=== PATIENT | female | born 1995 | race African-American/Black ===

== ENCOUNTER 2018-07-02 20:47 | Emergency (ER) | payer SELFPAY ==
--- OUTSIDE RECORDS SUMMARY | 2018-07-02 20:49 | XMS REPORT ---
:1995 [facility] Address [address] [place] [address] Dr. Elias. [address] [place] [id number] Care Team Providers Name Role Phone Unavailable Unavailable Unavailable Problems This patient has no known problems. Allergies, Adverse Reactions, Alerts This patient has no known allergies or adverse reactions. Medications This patient has no known medications.
[2018-07-02] MEDS ORDERED: HYDROCODONE/APAP 7.5/325 MG TAB ONE (21:23)
--- NOTE | 2018-07-02 22:42 | EDPHYS ---
Physician Documentation [facility] Name: Dylan Lopes Age: 22 yrs Sex: Female : 1995 Arrival Date: 07/02/2018 Time: 20:51 Bed 15 Private MD: ED Physician Remberto Hagen HPI: 07/02 21:50 This 22 yrs old Black Female presents to ER via EMS with complaints of Knee Injury. jr8 21:50 Onset: The symptoms/episode began/occurred acutely, today. The patient has not jr8 experienced similar symptoms in the past. The patient has not recently seen a physician. Patient stated that she was hit with softball directly to right knee. Pain since incident with limited ROM. 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 ak1 Historical: - Allergies: 20:55 No Known Allergies; ak1 - Home Meds: 20:55 Depo-Provera IM [Active]; ak1 - PMHx: 20:55 None; ak1 - PSHx: 20:55 ; ak1 - Immunization history:: Adult Immunizations up to date. - Social history:: Smoking status: unknown Patient/guardian denies using alcohol. - Ebola Screening: : No symptoms or risks identified at this time. ROS: 21:50 Eyes: Negative for injury, pain, redness, and discharge, ENT: Negative for injury, jr8 pain, and discharge, Neck: Negative for injury, pain, and swelling, Cardiovascular: Negative for chest pain, palpitations, and edema, Respiratory: Negative for shortness of breath, cough, wheezing, and pleuritic chest pain, Abdomen/GI: Negative for abdominal pain, nausea, vomiting, diarrhea, and constipation, Back: Negative for injury and pain, Skin: Negative for injury, rash, and discoloration, Neuro: Negative for headache, weakness, numbness, tingling, and seizure. 21:50 MS/extremity: Positive for decreased range of motion, pain, swelling, tenderness, of the right knee. Exam: 21:50 Eyes: Pupils equal round and reactive to light, extra-ocular motions intact. Lids and jr8 lashes normal. Conjunctiva and sclera are non-icteric and not injected. Cornea within normal limits. Periorbital areas with no swelling, redness, or edema. ENT: Nares patent. No nasal discharge, no septal abnormalities noted. Tympanic membranes are normal and external auditory canals are clear. Oropharynx with no redness, swelling, or masses, exudates, or evidence of obstruction, uvula midline. Mucous membranes moist. Neck: Trachea midline, no thyromegaly or masses palpated, and no cervical lymphadenopathy. Supple, full range of motion without nuchal rigidity, or vertebral point tenderness. No Meningismus. Cardiovascular: Regular rate and rhythm with a normal S1 and S2. No gallops, murmurs, or rubs. Normal PMI, no JVD. No pulse deficits. Respiratory: Lungs have equal breath sounds bilaterally, clear to auscultation and percussion. No rales, rhonchi or wheezes noted. No increased work of breathing, no retractions or nasal flaring. Abdomen/GI: Soft, non-tender, with normal bowel sounds. No distension or tympany. No guarding or rebound. No evidence of tenderness throughout. Back: No spinal tenderness. No costovertebral tenderness. Full range of motion. Skin: Warm, dry with normal turgor. Normal color with no rashes, no lesions, and no evidence of cellulitis. Neuro: Awake and alert, GCS 15, oriented to person, place, time, and situation. Cranial nerves II-XII grossly intact. Motor strength 5/5 in all extremities. Sensory grossly intact. Cerebellar exam normal. Normal gait. 21:50 Musculoskeletal/extremity: Extremities: grossly normal except: noted in the right knee: pain, swelling, tenderness, Patient has annular region of swelling to medial aspect of patella. No obvious deformity noted. Mild swelling present with tenderness to anterior knee , ROM: limited active range of motion, limited passive range of motion, limited active range of motion due to pain, limited passive range of motion due to pain, Circulation is intact in all extremities. Sensation intact. Vital Signs: 20:55 BP 91 / 55; Pulse 61; Resp 16; Temp 97.9(O); Pulse Ox 97% on R/A; Weight 59.87 kg (R); ak1 Height 5 ft. 8 in. (172.72 cm) (R); Pain 8/10; 21:34 BP 113 / 86; Pulse 48; Resp 16; Pulse Ox 100% on R/A; ak1 22:47 BP 121 / 73; Pulse 50; Resp 16; Temp 98.; Pulse Ox 100% on R/A; ak1 20:55 Body Mass Index 20.07 (59.87 kg, 172.72 cm) ak1 MDM: 21:03 Patient medically screened. jr8 22:41 Data reviewed: vital signs, nurses notes, radiologic studies, plain films, and as a jr8 result, I will discharge patient. Data interpreted: Pulse oximetry: on room air is 100 %. Interpretation: normal. Counseling: I had a detailed discussion with the patient and/or guardian regarding: the historical points, exam findings, and any diagnostic results supporting the discharge/admit diagnosis, radiology results, the need for outpatient follow up, a orthopedic surgeon, to return to the emergency department if symptoms worsen or persist or if there are any questions or concerns that arise at home. 07/02 20:53 Order name: XRAY Knee RIGHT 3 view ak1 Administered Medications: 21:12 Drug: [place] (7.5 mg-325 mg) 1 tabs Route: PO; ak1 21:34 Follow up: Response: No adverse reaction; Pain is decreased ak1 22:48 Follow up: Response: No adverse reaction; Pain is decreased ak1 Disposition: 07/03 07:12 Co-signature as Attending Physician, Remberto Hagen MD I agree with the assessment and tw4 plan of care. Disposition: 07/02/18 22:41 Discharged to Home. Impression: Contusion of right knee. - Condition is Stable. - Discharge Instructions: Knee Pain. - Prescriptions for Ibuprofen 800 mg Oral Tablet - take 1 tablet by ORAL route every 12 hours As needed take with food; 20 tablet. - Medication Reconciliation Form, Thank You Letter, Antibiotic Education, Prescription Opioid Use form. - Follow up: Gary Smith MD; When: 5 - 6 days; Reason: Recheck today's complaints, Continuance of care, Re-evaluation by your physician. - Problem is new. - Symptoms have improved. Signatures: Dispatcher [employer] EDMS Alex Hemphill PA PA jr8 Meenakshi Gutierrez, RN RN ak1 Remberto Hagen MD MD tw4 Corrections: (The following items were deleted from the chart) 07/02 22:56 22:41 07/02/2018 22:41 Discharged to Home. Impression: Contusion of right knee. ak1 Condition is Stable. Forms are Medication Reconciliation Form, Thank You Letter, Antibiotic Education, Prescription Opioid Use. Follow up: Gary Smith; When: 5 - 6 days; Reason: Recheck today's complaints, Continuance of care, Re-evaluation by your physician. Problem is new. Symptoms have improved. jr8
--- NOTE | 2018-07-02 22:42 | ER ---
Nurse's Notes [facility] Name: Dylan Lopes Age: 22 yrs Sex: Female : 1995 Arrival Date: 07/02/2018 Time: 20:51 Bed 15 Private MD: Diagnosis: Contusion of right knee Presentation: 07/02 20:53 Presenting complaint: Patient states: sitting on sideline when hit with softball to ak1 right knee. pain to inner right knee. ice applied during triage. Transition of care: patient was not received from another setting of care. Onset of symptoms was July 02, 2018. Risk Assessment: Do you want to hurt yourself or someone else? Patient reports no desire to harm self or others. Initial Sepsis Screen: Does the patient meet any 2 criteria? No. Patient's initial sepsis screen is negative. Does the patient have a suspected source of infection? No. Patient's initial sepsis screen is negative. Care prior to arrival: None. 20:53 Method Of Arrival: EMS: [facility] ak 20:53 Acuity: CORONA 4 ak1 Triage Assessment: 20:55 General: Appears uncomfortable, Behavior is calm, cooperative. Pain: Complains of pain ak1 in medial aspect of right knee. EENT: No signs and/or symptoms were reported regarding the EENT system. Neuro: No deficits noted. Cardiovascular: No deficits noted. Respiratory: No deficits noted. GI: No signs and/or symptoms were reported involving the gastrointestinal system. : No signs and/or symptoms were reported regarding the genitourinary system. Derm: No signs and/or symptoms reported regarding the dermatologic system. Musculoskeletal: Capillary refill < 3 seconds, Range of motion: limited in right knee Swelling present in medial aspect of right knee pulses present in right foot. 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 ak1 Historical: - Allergies: 20:55 No Known Allergies; ak1 - Home Meds: 20:55 Depo-Provera IM [Active]; ak1 - PMHx: 20:55 None; ak1 - PSHx: 20:55 ; ak1 - Immunization history:: Adult Immunizations up to date. - Social history:: Smoking status: unknown Patient/guardian denies using alcohol. - Ebola Screening: : No symptoms or risks identified at this time. Screenin:58 Abuse screen: Denies threats or abuse. Denies injuries from another. Nutritional ak1 screening: No deficits noted. Tuberculosis screening: No symptoms or risk factors identified. Fall Risk None identified. Assessment: 21:35 Reassessment: Patient appears in no apparent distress at this time. No changes from ak1 previously documented assessment. waiting on Xray results. 22:47 Reassessment: Patient appears in no apparent distress at this time. No changes from ak1 previously documented assessment. right knee sravani applied per Alex QUEEN verbal orders. Vital Signs: 20:55 BP 91 / 55; Pulse 61; Resp 16; Temp 97.9(O); Pulse Ox 97% on R/A; Weight 59.87 kg (R); ak1 Height 5 ft. 8 in. (172.72 cm) (R); Pain 8/10; 21:34 BP 113 / 86; Pulse 48; Resp 16; Pulse Ox 100% on R/A; ak1 22:47 BP 121 / 73; Pulse 50; Resp 16; Temp 98.; Pulse Ox 100% on R/A; ak1 20:55 Body Mass Index 20.07 (59.87 kg, 172.72 cm) ak1 ED Course: 20:51 Patient arrived in ED. fc 20:52 Meenakshi Gutierrez, RN is Primary Nurse. ak1 20:54 Triage completed. ak1 20:55 Arm band placed on Patient placed in an exam room, on a stretcher, on pulse oximetry, ak1 Patient notified of wait time. 20:58 Patient has correct armband on for positive identification. Bed in low position. Call ak1 light in reach. Side rails up X2. Adult w/ patient. Pulse ox on. NIBP on. 21:03 Alex Hemphill PA is PHCP. jr8 21:03 Remberto Hagen MD is Attending Physician. jr8 21:55 XRAY Knee RIGHT 3 view In Process Unspecified. EDMS 22:41 Gary Smith MD is Referral Physician. jr8 22:48 No provider procedures requiring assistance completed. Patient did not have IV access ak1 during this emergency room visit. Administered Medications: 21:12 Drug: [place] (7.5 mg-325 mg) 1 tabs Route: PO; ak1 21:34 Follow up: Response: No adverse reaction; Pain is decreased ak1 22:48 Follow up: Response: No adverse reaction; Pain is decreased ak1 Outcome: 22:41 Discharge ordered by . sabas 22:55 Discharged to home via wheelchair, with family, pt ambulated to wheelchair. ak1 22:55 Condition: good 22:55 Discharge instructions given to patient, family, Instructed on discharge instructions, follow up and referral plans. no drinking with medication, no driving heavy equipment, medication usage, Demonstrated understanding of instructions, follow-up care, medications, Prescriptions given X 1. 22:56 Patient left the ED. ak1 Signatures: Dispatcher [employer] EDMS Daniella Dai RN RN fc Roszak, Josh, PA PA jr8 Krenek, Amber, RN RN ak1
--- NOTE | 2018-07-03 09:12 | RAD REPORT ---
EXAM DESCRIPTION: RAD - Knee Right 3 View - 07/02/2018 9:54 pm CLINICAL HISTORY: Right knee pain status post injury FINDINGS: No fracture or dislocation is seen.
== END 2018-07-02 22:56 | disposition home or self-care (01) ==
LOC: ER 20:47
DX: S80.01XA Contusion of right knee, initial encounter (principal); W21.07XA Struck by softball, initial encounter; Y93.9 Activity, unspecified; Y92.9 Unspecified place or not applicable
CPT/HCPCS: 99284

== ENCOUNTER 2018-08-13 23:28 | Emergency (ER) | payer SELFPAY ==
--- OUTSIDE RECORDS SUMMARY | 2018-08-13 23:31 | XMS REPORT ---
:1995 Author Organization [facility] Address [address] [place] [address] Dr. Elias. [address] [place] [id number] Care Team Providers Name Role Phone Unavailable Unavailable Unavailable Problems This patient has no known problems. Allergies, Adverse Reactions, Alerts This patient has no known allergies or adverse reactions. Medications This patient has no known medications.
[2018-08-14] MEDS ORDERED: ONDANSETRON 4 MG/2 ML VIAL ONE (00:36)
--- NOTE | 2018-08-14 01:25 | EDPHYS ---
Physician Documentation [facility] Name: Dylan Lopes Age: 23 yrs Sex: Female : 1995 Arrival Date: 08/13/2018 Time: 23:34 Bed 27 Private MD: ED Physician Bart Ravi HPI: 08/14 00:00 This 23 yrs old Black Female presents to ER via Ambulatory with complaints of Vomiting. cp 00:00 The patient presents to the emergency department with nausea, that is moderate, cp vomiting, that is continuous, diarrhea, that is continuous. Onset: The symptoms/episode began/occurred this morning. Possible causes: sick contacts, infant daughter with similar symptoms. Associated signs and symptoms: Pertinent positives: fever, sore throat, slight cough, Pertinent negatives: constipation, dysuria, GI bleeding. Severity of symptoms: in the emergency department the symptoms are unchanged despite home interventions. 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 - Social history:: Smoking status: Patient/guardian denies using tobacco. - Ebola Screening: : No symptoms or risks identified at this time. ROS: 08/14 00:05 Constitutional: Negative for body aches, chills, fever. cp 00:05 Eyes: Negative for injury, pain, redness, and discharge. cp 00:05 ENT: Positive for sore throat, Negative for drainage from ear(s), ear pain, sinus congestion, sinus pain, difficulty swallowing, difficulty handling secretions. 00:05 Cardiovascular: Negative for chest pain. 00:05 Respiratory: Positive for slight cough, Negative for shortness of breath, wheezing. 00:05 Abdomen/GI: Positive for nausea, vomiting, and diarrhea, Negative for constipation, hematemesis. 00:05 : Negative for urinary symptoms. 00:05 Skin: Negative for rash. 00:05 Neuro: Negative for altered mental status, headache. 00:05 All other systems are negative. Exam: 00:10 Constitutional: The patient appears in no acute distress, alert, awake, non-toxic, well cp developed, well nourished. 00:10 Head/Face: Normocephalic, atraumatic. cp 00:10 Eyes: Periorbital structures: appear normal, Conjunctiva: normal, no exudate, no injection, Sclera: no appreciated abnormality, Lids and lashes: appear normal, bilaterally. 00:10 ENT: External ear(s): are unremarkable, Ear canal(s): are normal, clear, TM's: dullness, bilaterally, Nose: is normal, Mouth: Lips: moist, Oral mucosa: moist, Posterior pharynx: Airway: no evidence of obstruction, patent, Tonsils: with erythema, no enlargement, no exudate, Uvula: midline, erythema, that is moderate, exudate, is not appreciated. 00:10 Neck: Lymph nodes: lymphadenopathy is appreciated, anterior cervical nodes. 00:10 Chest/axilla: Inspection: normal, Palpation: is normal, no crepitus, no tenderness. 00:10 Cardiovascular: Rate: normal, Rhythm: regular. 00:10 Respiratory: the patient does not display signs of respiratory distress, Respirations: normal, no use of accessory muscles, no retractions, no splinting, no tachypnea, labored breathing, is not present, Breath sounds: are clear throughout, no decreased breath sounds, no stridor, no wheezing. 00:10 Abdomen/GI: Inspection: abdomen appears normal, Bowel sounds: active, all quadrants, Palpation: abdomen is soft and non-tender, in all quadrants. Vital Signs: 08/13 23:52 BP 111 / 78; Pulse 86; Resp 18; Temp 98.8(O); Pulse Ox 97% on R/A; Weight 59.87 kg; lp1 Height 5 ft. 8 in. (172.72 cm); Pain 11/30; 08/14 01:36 BP 110 / 81; Pulse 79; Resp 18; Temp 98.5; Pulse Ox 99% ; rv 08/13 23:52 Body Mass Index 20.07 (59.87 kg, 172.72 cm) lp1 MDM: 08/13 23:52 Patient medically screened. cp 08/14 01:23 Data reviewed: vital signs, nurses notes, lab test result(s), and as a result, I will cp discharge patient. 01:23 Counseling: I had a detailed discussion with the patient and/or guardian regarding: the cp historical points, exam findings, and any diagnostic results supporting the discharge/admit diagnosis, lab results, to return to the emergency department if symptoms worsen or persist or if there are any questions or concerns that arise at home. ED course: VSS. daughter positive for strep. Will treat patient also and discharge to home for continued monitoring. Nausea improved and no vomiting observed in ED. 08/14 00:03 Order name: Influenza Screen (a \T\ B) 08/14 00:03 Order name: Strep; Complete Time: 01:12 cp 08/14 01:12 Interpretation: Reviewed. 08/14 01:00 Order name: Throat Culture EDDC 08/14 01:11 Order name: Urine Dipstick--Ancillary (enter results) 08/14 01:11 Order name: Urine --Ancillary (enter results) 08/14 00:03 Order name: Urine Dipstick-Ancillary (obtain specimen); Complete Time: 00:39 cp 08/14 00:03 Order name: Urine Test (obtain specimen); Complete Time: 00:39 cp 08/14 00:53 Order name: PO challenge; Complete Time: 01:09 cp 08/14 01:13 Order name: PO challenge; Complete Time: 01:35 cp Administered Medications: 00:16 Drug: Zofran 4 mg Route: PO; rv 00:37 Follow up: Response: No adverse reaction rv Disposition: 08/14/18 01:24 Discharged to Home. Impression: Acute pharyngitis, Vomiting, Diarrhea, unspecified. - Condition is Stable. - Discharge Instructions: Food Choices to Help Relieve Diarrhea, Adult, Diarrhea, Adult, Pharyngitis. - Prescriptions for Amoxicillin 875 mg Oral Tablet - take 1 tablet by ORAL route every 12 hours for 10 days; 20 tablet. Ibuprofen 800 mg Oral Tablet - take 1 tablet by ORAL route every 8 hours As needed take with food; 30 tablet. Zofran 4 mg Oral Tablet - take 1 tablet by ORAL route every 12 hours As needed; 20 tablet. - Medication Reconciliation Form, Thank You Letter, Antibiotic Education, Prescription Opioid Use form. - Follow up: Private Physician; When: 2 - 3 days; Reason: Worsening of condition. - Problem is new. - Symptoms have improved. Signatures: Dispatcher [employer] EDMS Emily Sultana RN RN lp1 Olegario Todd PA PA cp Rajesh Adame, RN RN rv Corrections: (The following items were deleted from the chart) 01:36 01:24 08/14/2018 01:24 Discharged to Home. Impression: Acute pharyngitis; Vomiting; rv Diarrhea, unspecified. Condition is Stable. Forms are Medication Reconciliation Form, Thank You Letter, Antibiotic Education, Prescription Opioid Use. Follow up: Private Physician; When: 2 - 3 days; Reason: Worsening of condition. Problem is new. Symptoms have improved. cp
--- NOTE | 2018-08-14 01:25 | ER ---
Nurse's Notes [facility] Name: Dylan Lopes Age: 23 yrs Sex: Female : 1995 Arrival Date: 08/13/2018 Time: 23:34 Bed 27 Private MD: Diagnosis: Acute pharyngitis;Vomiting;Diarrhea, unspecified Presentation: 08/13 23:51 Presenting complaint: Patient states: Diarrhea and vomiting that began at 0400; states lp1 feeling general weakness; Unknown if fever at home. Transition of care: patient was not received from another setting of care. Onset of symptoms was August 13, 2018. Risk Assessment: Do you want to hurt yourself or someone else? Patient reports no desire to harm self or others. Initial Sepsis Screen: Does the patient meet any 2 criteria? No. Patient's initial sepsis screen is negative. Does the patient have a suspected source of infection? No. Patient's initial sepsis screen is negative. Care prior to arrival: None. 23:51 Method Of Arrival: Ambulatory lp1 23:51 Acuity: CORONA 3 lp1 Triage Assessment: 08/14 00:15 General: Appears in no apparent distress. comfortable, Behavior is calm, cooperative. rv GI: Reports nausea, vomiting. 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 - Social history:: Smoking status: Patient/guardian denies using tobacco. - Ebola Screening: : No symptoms or risks identified at this time. Screenin:53 Abuse screen: Denies threats or abuse. Denies injuries from another. Nutritional lp1 screening: No deficits noted. Tuberculosis screening: No symptoms or risk factors identified. Fall Risk None identified. Assessment: 08/14 00:14 General: Appears in no apparent distress. comfortable, Behavior is calm, cooperative. rv Pain: Denies pain. Neuro: Level of Consciousness is awake, alert, obeys commands, Oriented to person, place, time, situation. Cardiovascular: Patient's skin is warm and dry. Respiratory: Airway is patent. GI: Abdomen is flat. : No signs and/or symptoms were reported regarding the genitourinary system. EENT: No signs and/or symptoms were reported regarding the EENT system. Derm: Skin is intact. Musculoskeletal: No signs and/or symptoms reported regarding the musculoskeletal system. Vital Signs: 08/13 23:52 BP 111 / 78; Pulse 86; Resp 18; Temp 98.8(O); Pulse Ox 97% on R/A; Weight 59.87 kg; lp1 Height 5 ft. 8 in. (172.72 cm); Pain 9/10; 08/14 01:36 BP 110 / 81; Pulse 79; Resp 18; Temp 98.5; Pulse Ox 99% ; rv 08/13 23:52 Body Mass Index 20.07 (59.87 kg, 172.72 cm) lp1 ED Course: 08/13 23:34 Patient arrived in ED. am2 23:49 Olegario Todd PA is PHCP. cp 23:49 Bart Ravi MD is Attending Physician. cp 23:52 Triage completed. lp1 23:53 Arm band placed on. lp1 08/14 00:14 Rajesh Adame RN is Primary Nurse. rv 00:14 Influenza Screen (a \T\ B) Sent. rv 00:14 Strep Sent. rv 00:15 Patient has correct armband on for positive identification. Bed in low position. Call rv light in reach. Side rails up X 1. Pulse ox on. NIBP on. 01:35 No provider procedures requiring assistance completed. Patient did not have IV access rv during this emergency room visit. Administered Medications: 00:16 Drug: Zofran 4 mg Route: PO; rv 00:37 Follow up: Response: No adverse reaction rv Outcome: 01:24 Discharge ordered by . cp 01:35 Discharged to home ambulatory. rv 01:35 Condition: good 01:35 Discharge instructions given to patient, Instructed on discharge instructions, follow up and referral plans. medication usage, Demonstrated understanding of instructions, follow-up care, medications, Prescriptions given X 3. 01:36 Patient left the ED. rv Signatures: Emily Sultana RN RN lp1 Olegario Todd PA PA Kandy Morales am2 Rajesh Adame RN RN rv
[2018-08-14 01:31] LABS: Urine Blood TRACE (NEG); Urine Glucose NEGATIVE (NEG); Urine Protein 1+ (NEG); Urine Specific Gravity 1.025 (1.005-1.030); Urine pH 6.5 (5.0-7.0)
== END 2018-08-14 01:36 | disposition home or self-care (01) ==
LOC: ER 23:28
DX: J02.9 Acute pharyngitis, unspecified (principal); R11.2 Nausea with vomiting, unspecified; R19.7 Diarrhea, unspecified
CPT/HCPCS: 81003; 81025; 87070; 87081; 87804; 99284; J2405

== ENCOUNTER 2019-03-08 17:15 | Emergency (ER) | payer SELFPAY ==
--- OUTSIDE RECORDS SUMMARY | 2019-03-08 17:17 | XMS REPORT ---
:1995 [facility] Address [address] [place] [address] Dr. Elias. [address] [place] [id number] Care Team Providers Name Role Phone Unavailable Unavailable Unavailable Problems This patient has no known problems. Allergies, Adverse Reactions, Alerts This patient has no known allergies or adverse reactions. Medications This patient has no known medications.
[2019-03-08] MEDS ORDERED: dexAMETHasone 10 MG/ML VIAL ONE (17:50)
[2019-03-08] MEDS ORDERED: ACETAMINOPHEN 500 MG TAB ONE (17:50)
--- NOTE | 2019-03-08 18:04 | ER ---
Nurse's Notes [facility] Name: Dylan Lopes Age: 23 yrs Sex: Female : 1995 Arrival Date: 03/08/2019 Time: 17:18 Bed 15 Private MD: Angelia Herrera Diagnosis: Streptococcal tonsillitis Presentation: 03/08 17:28 Presenting complaint: Patient states: dental pain x 2 days and sore throat x 1 day. ss Transition of care: patient was not received from another setting of care. Onset of symptoms was March 06, 2019. Risk Assessment: Do you want to hurt yourself or someone else? Patient reports no desire to harm self or others. Initial Sepsis Screen: Does the patient meet any 2 criteria? No. Patient's initial sepsis screen is negative. Does the patient have a suspected source of infection? No. Patient's initial sepsis screen is negative. Care prior to arrival: None. 17:28 Method Of Arrival: Ambulatory ss 17:28 Acuity: CORONA 3 ss Triage Assessment: 18:00 General: Appears in no apparent distress. Behavior is calm. 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 - Social history:: Smoking status: Patient/guardian denies using tobacco. - Ebola Screening: : Patient denies exposure to infectious person Patient denies travel to an Ebola-affected area in the 21 days before illness onset. Screenin:40 Abuse screen: Denies threats or abuse. Denies injuries from another. Nutritional iw screening: No deficits noted. Tuberculosis screening: No symptoms or risk factors identified. Fall Risk None identified. Assessment: 17:40 General: Appears in no apparent distress. Behavior is calm, cooperative. Pain: iw Complains of pain in throat. Neuro: Level of Consciousness is awake, alert, obeys commands, Oriented to person, place, time, situation, Moves all extremities. Full function. Cardiovascular: Patient's skin is warm and dry. Respiratory: Airway is patent Respiratory effort is even, unlabored, Breath sounds are clear bilaterally. EENT: Throat is reddened has enlarged tonsils bilaterally with gag reflex present. Derm: Skin is intact, is healthy with good turgor. Musculoskeletal: Range of motion: intact in all extremities. Vital Signs: 17:28 BP 121 / 81; Pulse 81; Resp 16; Temp 99.1(O); Pulse Ox 100% on R/A; Weight 68.49 kg; ss Height 5 ft. 7 in. (170.18 cm); Pain 8/10; 17:28 Body Mass Index 23.65 (68.49 kg, 170.18 cm) ED Course: 17:18 Patient arrived in ED. am2 17:18 Angelia Herrera MD is Private Physician. am2 17:23 [facility]. jr8 17:23 Ilene Hunt MD is Attending Physician. jr8 17:28 Arm band placed on right wrist. ss 17:31 Triage completed. 17:33 Ana Beckwith RN is Primary Nurse. iw 17:40 Patient has correct armband on for positive identification. iw 17:40 No provider procedures requiring assistance completed. Patient did not have IV access iw during this emergency room visit. Administered Medications: 17:54 Drug: Decadron 10 mg Route: IM; Site: right deltoid; iw 18:12 Follow up: Response: No adverse reaction iw 17:55 Drug: Tylenol 1000 mg Route: PO; iw 18:12 Follow up: Response: No adverse reaction iw Outcome: 18:03 Discharge ordered by . [facility] 18:11 Discharged to home iw 18:11 Condition: good 18:11 Discharge instructions given to patient, Instructed on discharge instructions, medication usage, Demonstrated understanding of instructions, follow-up care, medications, Prescriptions given X 2. 18:12 Patient left the ED. iw Signatures: Ana Beckwith RN RN Domonique Hernandez RN RN Alex Hemphill PA PA [facility] Kandy Herron 2
--- NOTE | 2019-03-08 18:05 | EDPHYS ---
Physician Documentation [facility] Name: Dylan Lopes Age: 23 yrs Sex: Female : 1995 Arrival Date: 03/08/2019 Time: 17:18 Bed 15 Private MD: Angelia Herrera ED Physician Ilene Hunt HPI: 03/08 18:01 This 23 yrs old Black Female presents to ER via Ambulatory with complaints of Sore jr8 Throat, Difficulty Swallowing, Fever, Vomiting. 18:01 The patient presents with sore throat. The patient describes throat pain as raw. Onset: jr8 The symptoms/episode began/occurred acutely, yesterday. Severity of symptoms: At their worst the symptoms were moderate, in the emergency department the symptoms are unchanged. Modifying factors: The symptoms are alleviated by nothing, the symptoms are aggravated by swallowing. Associated signs and symptoms: Pertinent positives: fever, headache, nausea, Sore throat vomiting. The patient has not experienced similar symptoms in the past. The patient has not recently seen a physician. 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 - Social history:: Smoking status: Patient/guardian denies using tobacco. - Ebola Screening: : Patient denies exposure to infectious person Patient denies travel to an Ebola-affected area in the 21 days before illness onset. ROS: 18:01 Eyes: Negative for injury, pain, redness, and discharge, Neck: Negative for injury, jr8 pain, and swelling, Cardiovascular: Negative for chest pain, palpitations, and edema, Respiratory: Negative for shortness of breath, cough, wheezing, and pleuritic chest pain, Back: Negative for injury and pain, MS/Extremity: Negative for injury and deformity, Skin: Negative for injury, rash, and discoloration. 18:01 Constitutional: Positive for fever. 18:01 ENT: Positive for sore throat. 18:01 Abdomen/GI: Positive for nausea and vomiting, Negative for abdominal pain, diarrhea. 18:01 Neuro: Positive for headache. Exam: 18:01 Eyes: Pupils equal round and reactive to light, extra-ocular motions intact. Lids and jr8 lashes normal. Conjunctiva and sclera are non-icteric and not injected. Cornea within normal limits. Periorbital areas with no swelling, redness, or edema. Neck: Trachea midline, no thyromegaly or masses palpated, and no cervical lymphadenopathy. Supple, full range of motion without nuchal rigidity, or vertebral point tenderness. No Meningismus. Cardiovascular: Regular rate and rhythm with a normal S1 and S2. No gallops, murmurs, or rubs. Normal PMI, no JVD. No pulse deficits. Respiratory: Lungs have equal breath sounds bilaterally, clear to auscultation and percussion. No rales, rhonchi or wheezes noted. No increased work of breathing, no retractions or nasal flaring. Abdomen/GI: Soft, non-tender, with normal bowel sounds. No distension or tympany. No guarding or rebound. No evidence of tenderness throughout. Back: No spinal tenderness. No costovertebral tenderness. Full range of motion. Skin: Warm, dry with normal turgor. Normal color with no rashes, no lesions, and no evidence of cellulitis. MS/ Extremity: Pulses equal, no cyanosis. Neurovascular intact. Full, normal range of motion. Neuro: Awake and alert, GCS 15, oriented to person, place, time, and situation. Cranial nerves II-XII grossly intact. Motor strength 5/5 in all extremities. Sensory grossly intact. Cerebellar exam normal. Normal gait. 18:01 ENT: Exam is negative for earache, ear discharge, TM abnormalities, nasal discharge, Posterior pharynx: Airway: patent, Tonsils: bilaterally enlarged, with erythema, with exudate, no ulcerations, Uvula: midline, non-edematous, no erythema, swelling, is not appreciated, erythema, that is moderate. Vital Signs: 17:28 BP 121 / 81; Pulse 81; Resp 16; Temp 99.1(O); Pulse Ox 100% on R/A; Weight 68.49 kg; ss Height 5 ft. 7 in. (170.18 cm); Pain 8/10; 17:28 Body Mass Index 23.65 (68.49 kg, 170.18 cm) MDM: 17:23 Patient medically screened. [facility] 18:03 Data reviewed: vital signs, nurses notes, lab test result(s), and as a result, I will jr8 discharge patient. Data interpreted: Pulse oximetry: on room air is 100 %. Interpretation: normal. Counseling: I had a detailed discussion with the patient and/or guardian regarding: the historical points, exam findings, and any diagnostic results supporting the discharge/admit diagnosis, lab results, the need for outpatient follow up, a family practitioner, to return to the emergency department if symptoms worsen or persist or if there are any questions or concerns that arise at home. 03/08 17:47 Order name: Strep jr8 Administered Medications: 17:54 Drug: Decadron 10 mg Route: IM; Site: right deltoid; iw 18:12 Follow up: Response: No adverse reaction iw 17:55 Drug: Tylenol 1000 mg Route: PO; iw 18:12 Follow up: Response: No adverse reaction iw Disposition: 03/08/19 18:03 Discharged to Home. Impression: Streptococcal tonsillitis. - Condition is Stable. - Discharge Instructions: Strep Throat. - Prescriptions for Augmentin 875- 125 mg Oral Tablet - take 1 tablet by ORAL route every 12 hours for 10 days; 20 tablet. Tessalon Perles 100 mg Oral Capsule - take 1 capsule by ORAL route every 8 hours As needed; 15 capsule. - Work release form, Medication Reconciliation Form, Thank You Letter, Antibiotic Education, Prescription Opioid Use form. - Follow up: Private Physician; When: 5 - 6 days; Reason: Recheck today's complaints, Continuance of care, Re-evaluation by your physician. - Problem is new. - Symptoms have improved. Addendum: 03/12/2019 07:11 Co-signature as Attending Physician, Ilene Hunt MD. m a2 Signatures: Dispatcher [employer] Ana Pretty RN RN iw Smirch, Shelby, RN RN ss Roszak, Josh, PA PA jr8 Ilene Hunt MD MD ma2 Corrections: (The following items were deleted from the chart) 03/08 18:12 18:03 03/08/2019 18:03 Discharged to Home. Impression: Streptococcal tonsillitis. iw Condition is Stable. Forms are Medication Reconciliation Form, Thank You Letter, Antibiotic Education, Prescription Opioid Use. Follow up: Private Physician; When: 5 - 6 days; Reason: Recheck today's complaints, Continuance of care, Re-evaluation by your physician. Problem is new. Symptoms have improved. jr8
[2019-03-08 18:27] VITALS: BP 121/81; TEMP 99.1; O2SAT 100
== END 2019-03-08 18:12 | disposition home or self-care (01) ==
LOC: ER 17:15
DX: J03.00 Acute streptococcal tonsillitis, unspecified (principal)
CPT/HCPCS: 87070; 87081; 96372; 99283; J1100

== ENCOUNTER 2019-04-04 00:24 | Emergency (ER) | payer SELFPAY ==
--- OUTSIDE RECORDS SUMMARY | 2019-04-04 00:26 | XMS REPORT ---
:1995 [facility] Address [address] [place] [address] Dr. Lay [address] [place] [id number] Care Team Providers Name Role Phone Unavailable Unavailable Unavailable Problems This patient has no known problems. Allergies, Adverse Reactions, Alerts This patient has no known allergies or adverse reactions. Medications This patient has no known medications.
--- NOTE | 2019-04-04 00:53 | ER ---
Nurse's Notes [facility] Name: Dylan Lopes Age: 23 yrs Sex: Female : 1995 Arrival Date: 04/04/2019 Time: 00:26 Bed 7 Private MD: Diagnosis: Urinary tract infection, site not specified Presentation: 04/04 00:37 Presenting complaint: Patient states: Reports pain with urination and frequency that ea started this AM. Transition of care: patient was not received from another setting of care. Onset of symptoms was April 04, 2019. Risk Assessment: Do you want to hurt yourself or someone else? Patient reports no desire to harm self or others. Initial Sepsis Screen: Does the patient meet any 2 criteria? No. Patient's initial sepsis screen is negative. Does the patient have a suspected source of infection? Yes: Dysuria/Frequency/Urgency/UTI. Care prior to arrival: None. 00:37 Method Of Arrival: Ambulatory ea 00:37 Acuity: CORONA 4 ea Triage Assessment: 00:41 General: Appears uncomfortable, Behavior is calm, cooperative, appropriate for age. ea Pain: Complains of pain in pain with urination. Neuro: Level of Consciousness is awake, alert, obeys commands, Oriented to person, place, time. Respiratory: Airway is patent Respiratory effort is even, unlabored, Respiratory pattern is regular, symmetrical. : Reports burning with urination, urgency. Derm: Skin is pink, warm \T\ dry. 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 - Social history:: Smoking status: Patient/guardian denies using tobacco. - Ebola Screening: : No symptoms or risks identified at this time. Screenin:40 Abuse screen: Denies threats or abuse. Nutritional screening: No deficits noted. ea Tuberculosis screening: No symptoms or risk factors identified. Fall Risk None identified. Assessment: 01:00 General: Appears in no apparent distress. uncomfortable, Behavior is calm, cooperative. rv 01:00 Pain: Complains of pain in pelvis. Neuro: Level of Consciousness is awake, alert, obeys rv commands, Oriented to person, place, time, situation. Cardiovascular: Patient's skin is warm and dry. Respiratory: Airway is patent. : Reports burning with urination, urgency. Vital Signs: 00:40 BP 109 / 71; Pulse 90; Resp 18; Temp 97.6(TE); Pulse Ox 99% on R/A; Weight 65.32 kg; ea Height 5 ft. 8 in. (172.72 cm) (R); 01:29 BP 112 / 73; Pulse 89; Resp 18; Pulse Ox 100% on R/A; rv 00:40 Body Mass Index 21.89 (65.32 kg, 172.72 cm) ea ED Course: 00:26 Patient arrived in ED. jg7 00:28 Rajesh Adame RN is Primary Nurse. rv 00:28 Guanaco Diaz NP is PHCP. pm1 00:28 Ilene Hunt MD is Attending Physician. pm1 00:40 Triage completed. ea 00:41 Arm band placed on right wrist. Patient placed in an exam room, on a stretcher, on ea pulse oximetry. 00:41 Patient has correct armband on for positive identification. Bed in low position. Call ea light in reach. 01:30 No provider procedures requiring assistance completed. Patient did not have IV access rv during this emergency room visit. Administered Medications: 01:34 Drug: Rocephin (cefTRIAXone) 1 grams Route: IM; Site: right gluteus; ea 01:50 Follow up: Response: No adverse reaction rv 01:36 Drug: TORadol 60 mg Route: IM; Site: left gluteus; ea 01:50 Follow up: Response: No adverse reaction rv Outcome: 00:53 Discharge ordered by . pm1 01:30 Discharged to home ambulatory. rv 01:30 Condition: good 01:30 Discharge instructions given to patient, Instructed on discharge instructions, follow up and referral plans. medication usage, Demonstrated understanding of instructions, follow-up care, medications, Prescriptions given X 2. 01:51 Patient left the ED. rv Signatures: Guanaco Diaz NP WELLNESS NURSE pm1 Madie Bueno RN RN ea Vicente, Ronaldo, RN RN Demi Abad jg7
--- NOTE | 2019-04-04 00:54 | EDPHYS ---
Physician Documentation [facility] Name: Dylan Lopes Age: 23 yrs Sex: Female : 1995 Arrival Date: 04/04/2019 Time: 00:26 Bed 7 Private MD: ED Physician Ilene Hunt HPI: 04/04 00:49 This 23 yrs old Black Female presents to ER via Ambulatory with complaints of Pain With pm1 Urination, Urinary Frequency. 00:49 The patient presents with urinary symptoms, frequency, Pain with urination. Onset: The pm1 symptoms/episode began/occurred this morning. Modifying factors: the symptoms are aggravated by urinating. Associated signs and symptoms: Pertinent negatives: fever, vaginal discharge, vomiting, abdominal pain, flank pain. Severity of symptoms: in the emergency department the symptoms are actually worse. The patient's method of control includes implant. The patient has not experienced similar symptoms in the past. 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 - Social history:: Smoking status: Patient/guardian denies using tobacco. - Ebola Screening: : No symptoms or risks identified at this time. ROS: 00:49 Positive for urinary frequency, burning with urination, Negative for pelvic pain, pm1 flank pain. 00:49 Constitutional: Negative for fever, chills, and weight loss, Eyes: Negative for injury, pain, redness, and discharge, ENT: Negative for injury, pain, and discharge, Neck: Negative for injury, pain, and swelling, Cardiovascular: Negative for chest pain, palpitations, and edema, Respiratory: Negative for shortness of breath, cough, wheezing, and pleuritic chest pain, Abdomen/GI: Negative for abdominal pain, nausea, vomiting, diarrhea, and constipation, Back: Negative for injury and pain, MS/Extremity: Negative for injury and deformity, Skin: Negative for injury, rash, and discoloration, Neuro: Negative for headache, weakness, numbness, tingling, and seizure. 00:49 : Positive for urinary frequency, burning with urination. Exam: 00:49 Constitutional: This is a well developed, well nourished patient who is awake, alert, pm1 and in no acute distress. Head/Face: Normocephalic, atraumatic. Chest/axilla: Normal chest wall appearance and motion. Nontender with no deformity. No lesions are appreciated. Cardiovascular: Regular rate and rhythm with a normal S1 and S2. No gallops, murmurs, or rubs. Normal PMI, no JVD. No pulse deficits. Respiratory: Lungs have equal breath sounds bilaterally, clear to auscultation and percussion. No rales, rhonchi or wheezes noted. No increased work of breathing, no retractions or nasal flaring. 00:49 Back: No spinal tenderness. No costovertebral tenderness. Full range of motion. Skin: Warm, dry with normal turgor. Normal color with no rashes, no lesions, and no evidence of cellulitis. MS/ Extremity: Pulses equal, no cyanosis. Neurovascular intact. Full, normal range of motion. 00:49 Abdomen/GI: Inspection: abdomen appears normal, Palpation: abdomen is soft and non-tender, in all quadrants. 00:49 Neuro: Orientation: is normal, Motor: is normal, moves all fours, Sensation: is normal, no obvious gross deficits, Gait: is steady, at a normal pace, without difficulty. Vital Signs: 00:40 BP 109 / 71; Pulse 90; Resp 18; Temp 97.6(TE); Pulse Ox 99% on R/A; Weight 65.32 kg; ea Height 5 ft. 8 in. (172.72 cm) (R); 01:29 BP 112 / 73; Pulse 89; Resp 18; Pulse Ox 100% on R/A; rv 00:40 Body Mass Index 21.89 (65.32 kg, 172.72 cm) ea MDM: 00:30 Patient medically screened. pm1 00:52 Data reviewed: vital signs. Data interpreted: Pulse oximetry: on room air is 99 %. pm1 Interpretation: normal. Counseling: I had a detailed discussion with the patient and/or guardian regarding: the historical points, exam findings, and any diagnostic results supporting the discharge/admit diagnosis, the need for outpatient follow up, to return to the emergency department if symptoms worsen or persist or if there are any questions or concerns that arise at home. 04/04 00:30 Order name: Urine Microscopic Only; Complete Time: 01:18 ea 04/04 00:31 Order name: Urine Culture ea 04/04 00:44 Order name: Urine Dipstick--Ancillary (enter results); Complete Time: 01:18 mt 04/04 00:44 Order name: Urine --Ancillary (enter results); Complete Time: 01:18 mt Administered Medications: 01:34 Drug: Rocephin (cefTRIAXone) 1 grams Route: IM; Site: right gluteus; ea 01:50 Follow up: Response: No adverse reaction rv 01:36 Drug: TORadol 60 mg Route: IM; Site: left gluteus; ea 01:50 Follow up: Response: No adverse reaction rv Disposition: 04/04/19 00:53 Discharged to Home. Impression: Urinary tract infection, site not specified. - Condition is Stable. - Discharge Instructions: Urinary Tract Infection, Adult. - Prescriptions for Macrobid 100 mg Oral Capsule - take 1 capsule by ORAL route every 12 hours for 10 days; 20 capsule. Pyridium 200 mg Oral Tablet - take 1 tablet by ORAL route every 8 hours for 3 days; 9 tablet. - Medication Reconciliation Form, Thank You Letter, Antibiotic Education, Prescription Opioid Use, Work release form form. - Follow up: Emergency Department; When: As needed; Reason: Worsening of condition. Follow up: Private Physician; When: 2 - 3 days; Reason: Recheck today's complaints, Continuance of care, Re-evaluation by your physician. - Problem is new. - Symptoms have improved. Addendum: 04/05/2019 04:34 Co-signature as Attending Physician, Ilene Hunt MD. m a2 Signatures: Dispatcher [employer] EDMS Guanaco Diaz NP REPORTING PROCESS CONSULTANT pm1 Madie Bueno RN RN ea Alzahri, Mohammad, MD MD ma2 Rajesh Adame RN RN rv Corrections: (The following items were deleted from the chart) 04/04 01:51 00:53 04/04/2019 00:53 Discharged to Home. Impression: Urinary tract infection, site rv not specified. Condition is Stable. Forms are Medication Reconciliation Form, Thank You Letter, Antibiotic Education, Prescription Opioid Use. Follow up: Emergency Department; When: As needed; Reason: Worsening of condition. Follow up: Private Physician; When: 2 - 3 days; Reason: Recheck today's complaints, Continuance of care, Re-evaluation by your physician. Problem is new. Symptoms have improved. pm1
[2019-04-04 01:15] LABS: Urine Bacteria <20 /HPF (<20); Urine Culture Reflex Order NOT NEEDED; Urine RBC 20-50 /HPF (NONE SEEN)
[2019-04-04 01:15] LABS: Urine Blood 3+ (NEG); Urine Glucose NEGATIVE (NEG); Urine Protein 1+ (NEG); Urine Specific Gravity >1.030 (1.005-1.030)
[2019-04-04] MEDS ORDERED: CEFTRIAXONE 1000 MG/VIAL ONE (01:31)
[2019-04-04] MEDS ORDERED: LIDOCAINE 1% MPF 5 ML VIAL ONE (01:32)
[2019-04-04] MEDS ORDERED: KETOROLAC 30 MG/ML INJ ONE (01:32)
[2019-04-04 02:49] VITALS: BP 112/73; O2SAT 100
[2019-04-04 02:51] VITALS: TEMP 97.6
== END 2019-04-04 01:51 | disposition home or self-care (01) ==
LOC: ER 00:24
DX: N39.0 Urinary tract infection, site not specified (principal)
CPT/HCPCS: 81003; 81015; 81025; 87077; 87086; 87088; 87186; 96372; 99283

== ENCOUNTER 2019-04-18 15:10 | Emergency (ER) | payer SELFPAY ==
--- OUTSIDE RECORDS SUMMARY | 2019-04-18 15:13 | XMS REPORT ---
:1995 [facility] Address [address] [place] [address] Dr. Lay [address] [place] [id number] Care Team Providers Name Role Phone Unavailable Unavailable Unavailable Problems This patient has no known problems. Allergies, Adverse Reactions, Alerts This patient has no known allergies or adverse reactions. Medications This patient has no known medications.
--- NOTE | 2019-04-18 16:56 | EDPHYS ---
Physician Documentation [facility] Name: Dylan Lopes Age: 23 yrs Sex: Female : 1995 Arrival Date: 04/18/2019 Time: 15:12 Bed 11 Private MD: ED Physician Olegario Peck HPI: 04/18 16:52 This 23 yrs old Black Female presents to ER via Ambulatory with complaints of Flu jmm Symptoms. 16:52 The patient or guardian reports cough. Onset: The symptoms/episode began/occurred jmm gradually, 10 day(s) ago. Modifying factors: The symptoms are alleviated by nothing. the symptoms are aggravated by nothing. Associated signs and symptoms: Pertinent positives: fever, sore throat. This is a 23 year old female with no chronic medical conditions that presents to the ED with complaints of cough, sore throat, beginning approx 10 days ago. Grandmother recently diagnosed with bronchitis. . 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 - Coronavirus screen:: The patient has NOT traveled to [place], [place], or [place] in the past 14 days. The patient has NOT traveled to [place], [place], or [place] in the past 14 days. - Social history:: Smoking status: . - Ebola Screening: : Patient denies exposure to infectious person Patient denies travel to an Ebola-affected area in the 21 days before illness onset. ROS: 16:52 Constitutional: Positive for fever. jmm 16:52 ENT: Positive for sore throat. 16:52 Respiratory: Positive for cough, wheezing. 16:52 All other systems are negative. Exam: 16:52 Constitutional: This is a well developed, well nourished patient who is awake, alert, jmm and in no acute distress. Head/Face: atraumatic. Eyes: EOMI, no conjunctival erythema appreciated 16:52 Neck: Trachea midline, Supple Chest/axilla: Normal chest wall appearance and motion. 16:52 Abdomen/GI: Non distended, soft Back: Normal ROM Skin: General appearance color normal MS/ Extremity: Moves all extremities, no obvious deformities appreciated, no edema noted to the lower extremities Neuro: Awake and alert, normal gait Psych: Behavior is normal, Mood is normal, Patient is cooperative and pleasant 16:52 ENT: Posterior pharynx: erythema, that is moderate. 16:52 Cardiovascular: Rate: normal, Rhythm: regular, Pulses: no pulse deficits are appreciated. 16:52 Respiratory: the patient does not display signs of respiratory distress, Respirations: normal, Breath sounds: are clear throughout. Vital Signs: 15:20 BP 114 / 72; Pulse 98; Resp 18; Temp 97.8(TE); Pulse Ox 100% on R/A; Weight 59.87 kg tw2 (R); Height 5 ft. 8 in. (172.72 cm) (R); Pain 8/10; 15:20 Body Mass Index 20.07 (59.87 kg, 172.72 cm) tw2 MDM: 16:23 Patient medically screened. [facility] 16:54 Data reviewed: vital signs, nurses notes. [facility] 16:54 Counseling: I had a detailed discussion with the patient and/or guardian regarding: the [facility] historical points, exam findings, and any diagnostic results supporting the discharge/admit diagnosis, lab results, the need for outpatient follow up, to return to the emergency department if symptoms worsen or persist or if there are any questions or concerns that arise at home. ED course: Patient is alert and non toxic in appearance in the ED. No signs of resp distress appreciated. Patient is advised to follow up with pcp and otherwise given strict return precautions. Patient understood and agrees with the plan of care. . 04/18 15:22 Order name: Flu; Complete Time: 16:22 tw2 04/18 15:22 Order name: Strep; Complete Time: 16:22 tw2 04/18 16:19 Order name: Throat Culture EDMS Administered Medications: No medications were administered Disposition: 04/19 08:58 Co-signature as Attending Physician, Olegario Peck MD I agree with the assessment and [facility] plan of care. Disposition: 04/18/19 16:55 Discharged to Home. Impression: Acute bronchitis, Acute pharyngitis. - Condition is Stable. - Discharge Instructions: Acute Bronchitis, Adult, Pharyngitis. - Prescriptions for Prednisone 20 mg Oral Tablet - take 3 tablet by ORAL route once daily for 5 days; 15 tablet. Zithromax Z- Markus 250 mg Oral Tablet - take 1 tablet by ORAL route as directed for 5 days Day 1 - take two (2) tablets one time. Day 2, 3, 4 , 5 take one (1) tablet once daily.; 6 tablet. Albuterol Sulfate 90 mcg/actuation - inhale 1-2 puff by INHALATION route every 4-6 hours; 1 Inhaler. - Medication Reconciliation Form, Thank You Letter, Antibiotic Education, Prescription Opioid Use, Work release form form. - Follow up: Private Physician; When: 2 - 3 days; Reason: Recheck today's complaints, Continuance of care, Re-evaluation by your physician. Signatures: Dispatcher [employer] EDOlegario Beltran MD MD cha Mickail, Joel, PA PA jmm Williams, Irene, RN RN iw Lupis Lilly RN RN tw2 Corrections: (The following items were deleted from the chart) 04/18 17:09 16:55 04/18/2019 16:55 Discharged to Home. Impression: Acute bronchitis; Acute iw pharyngitis. Condition is Stable. Forms are Medication Reconciliation Form, Thank You Letter, Antibiotic Education, Prescription Opioid Use. Follow up: Private Physician; When: 2 - 3 days; Reason: Recheck today's complaints, Continuance of care, Re-evaluation by your physician. gail
--- NOTE | 2019-04-18 16:56 | ER ---
Nurse's Notes [facility] Name: Dylan Lopes Age: 23 yrs Sex: Female : 1995 Arrival Date: 04/18/2019 Time: 15:12 Bed 11 Private MD: Diagnosis: Acute bronchitis;Acute pharyngitis Presentation: 04/18 15:18 Presenting complaint: Patient states: i have had a cough and congestion for like 2 tw2 weeks, and i am coughing up yellow mucous. Transition of care: patient was not received from another setting of care. Onset of symptoms was April 18, 2019. Risk Assessment: Do you want to hurt yourself or someone else? Patient reports no desire to harm self or others. Initial Sepsis Screen: Does the patient meet any 2 criteria? HR > 90 bpm. No. Patient's initial sepsis screen is negative. Does the patient have a suspected source of infection? No. Patient's initial sepsis screen is negative. Care prior to arrival: None. 15:18 Method Of Arrival: Ambulatory tw2 15:18 Acuity: CORONA 4 tw2 Triage Assessment: 15:20 General: Appears in no apparent distress. slender, Behavior is calm, cooperative, tw2 appropriate for age. Pain: Complains of pain in uvula, left aspect of posterior pharynx and right aspect of posterior pharynx. EENT: Reports nasal congestion nasal discharge. Respiratory: Reports cough that is productive. 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 - Coronavirus screen:: The patient has NOT traveled to [place], [place], or [place] in the past 14 days. The patient has NOT traveled to [place], [place], or [place] in the past 14 days. - Social history:: Smoking status: . - Ebola Screening: : Patient denies exposure to infectious person Patient denies travel to an Ebola-affected area in the 21 days before illness onset. Screenin:27 Abuse screen: Denies threats or abuse. Nutritional screening: No deficits noted. tw2 Tuberculosis screening: No symptoms or risk factors identified. Fall Risk None identified. Assessment: 16:08 General: Appears in no apparent distress. comfortable, Behavior is calm, cooperative. iw Neuro: Level of Consciousness is awake, alert, obeys commands, Oriented to person, place, time, situation. Cardiovascular: Patient's skin is warm and dry. Respiratory: Respiratory effort is even, unlabored, Respiratory pattern is regular, symmetrical. Derm: Skin is intact, is healthy with good turgor. Musculoskeletal: Range of motion: intact in all extremities. Vital Signs: 15:20 BP 114 / 72; Pulse 98; Resp 18; Temp 97.8(TE); Pulse Ox 100% on R/A; Weight 59.87 kg tw2 (R); Height 5 ft. 8 in. (172.72 cm) (R); Pain 8/10; 15:20 Body Mass Index 20.07 (59.87 kg, 172.72 cm) tw2 ED Course: 15:12 Patient arrived in ED. mr 15:20 Triage completed. tw2 15:20 Arm band placed on. tw2 15:26 Strep Sent. tw2 15:27 Flu Sent. tw2 16:00 Patient has correct armband on for positive identification. iw 16:17 Miguel Clemens PA is PHCP. [facility] 16:18 Olegario Peck MD is Attending Physician. [facility] 16:21 Ana Beckwith, RN is Primary Nurse. iw 16:22 Miguel Clemens PA is PHCP. [facility] 16:22 Olegario Peck MD is Attending Physician. [facility] 17:08 No provider procedures requiring assistance completed. Patient did not have IV access iw during this emergency room visit. Administered Medications: No medications were administered Outcome: 16:55 Discharge ordered by . [facility] 17:08 Discharged to home ambulatory. iw 17:08 Condition: good 17:08 Discharge instructions given to family, Instructed on discharge instructions, follow up and referral plans. medication usage, Demonstrated understanding of instructions, follow-up care, medications, Prescriptions given X 3. 17:09 Patient left the ED. iw Signatures: Miguel Clemens PA PA jmm Rivera, Mary mr Ana Beckwith, RN RN iw Lupis Lilly RN RN tw2
[2019-04-18 17:25] VITALS: BP 114/72; TEMP 97.8; O2SAT 100
== END 2019-04-18 17:09 | disposition home or self-care (01) ==
LOC: ER 15:10
DX: J20.9 Acute bronchitis, unspecified (principal)
CPT/HCPCS: 87070; 87081; 87804; 99283

== ENCOUNTER 2020-05-31 19:14 | Emergency (ER) | payer SELFPAY ==
--- OUTSIDE RECORDS SUMMARY | 2020-05-31 19:18 | XMS REPORT | Continuity of Care Document ---
:1995 Author Organization [facility] t Address [facility] [place] [address] Care Team Providers Name Role Phone Visit, Nurse Attending Clinician Unavailable Alma Springer Attending Clinician Payers Payer Name Policy Type Policy Number Effective Date Expiration Date S ource Problems This patient has no known problems. Allergies, Adverse Reactions, Alerts Allergy Allergy Status Severity Reaction(s) Onset Inactive Treating Comm ents Source Name Type Date Date Clinician No Known DA Active U 2020-0 [facility] [place] Medications This patient has no known medications. Procedures This patient has no known procedures. Encounters Start End Encounter Admission Attending Care Care Encounter Source Date/Time Date/Time Type Type Clinicians Facility Department ID 2020-05-24 2020-05-24 Nurse Visit, [facility] [id number] 14:58:09 15:06:57 Visit Rizwana INSIDE SALES DIRECTOR [id number] Nurse [facility] [id number] MATERNAL [id number] & CHILD [address] [place] [address] 2020-03-01 2020-03-01 Nurse Visit, [facility] [id number] 15:03:57 15:34:52 Visit [facility] INSIDE SALES DIRECTOR [id number] Nurse [facility] [id number] MATERNAL [id number] & CHILD [address] [facility] 2019-11-30 2019-11-30 Office Douglas MOANURADHA [id number] 13:20:31 14:15:04 Visit Norma Alma INSIDE SALES DIRECTOR [id number] REGIONAL [id number] MATERNAL [id number] & CHILD [facility] Results Test Description Test Time Test Comments Results Result Comments Source - US ABDOMEN LTD 2019-08-17 Patient Name: 15:38:00 IVIS WADE Unit No: [id number] EXAMS: CPT CODE: [id number] ABDOMEN [facility] [address] EXAM: Right upper quadrant ultrasound. EXAM DATE: August 17, 2019. CLINICAL HISTORY: Epigastric pain and vomiting.. Real-time imaging of the abdomen demonstrated a normal appearing liver, pancreas, gallbladder, and biliary ductal system. Renal fusion anomaly is noted. The liver measures 15.6 cm. The common bile duct measures 0.2 cm. The visualized portions of the IVC and aorta are within normal limits. IMPRESSION: Renal fusion anomaly (horseshoe kidney) noted. No other significant findings identified. at 1538 Reported and signed by: Shahida Carmichael MD CC: Eduardo Jaramillo MD Technologist: Emily Abreu RDMS Probe: Trnscrbd D/ (1538) [email or web address] Orig Print D/T: S: 08/17/2019 (1541) [facility] NAME: IVIS WADE Radiology Department PHYS: Mauri Le [address] : 1995 AGE: 24 SEX: F [place], [place] [address] LOC: PAZ PHONE #: [phone] EXAM DATE: 08/17/2019 STATUS: REG ER FAX #: [phone] RAD NO: Page 1 Signed Report Patient Name: IVIS WADE Unit No: [id number] EXAMS: CPT CODE: [id number] US ABDOMEN LTD [id number] <Continued> [facility] NAME: IVIS WADE Radiology Department PHYS: Mauri Le [address] : 1995 AGE: 24 SEX: F [place], [place] [address] LOC: ElenaERS PHONE #: [phone] EXAM DATE: 08/17/2019 STATUS: REG ER FAX #: [phone] RAD NO: Page 2 Signed Report COMPREHENSIVE METABOLIC PANEL 2019-08-17 14:13:00 Test Item Value Reference Range Interpretation Comme nts SODIUM (test code = NA) 141 mEq/L 135-145 N POTASSIUM (test code = K) 3.9 mEq/L 3.5-5.0 N CHLORIDE (test code = CL) 101 mEq/L 100-115 N CARBON DIOXIDE (test code = CO2) 30 mEq/L 22-31 N ANION GAP (test code = GAP) 14.30 10-20 N GLUCOSE (test code = GLU) 95 mg/dL 65-110 N BLOOD UREA NITROGEN (test code = BUN) 9 mg/dL 7-18 N GLOMERULAR FILTRATION RATE (test code = GFR) 78 ml/min >60 N CREATININE (test code = CREAT) 0.9 mg/dL 0.5-1.0 N TOTAL PROTEIN (test code = PROT) 8.9 gm/dL 6.3-8.2 H ALBUMIN (test code = ALB) 4.7 gm/dL 3.4-4.8 N CALCIUM (test code = CA) 9.0 mg/dL 8.4-10.2 N BILIRUBIN TOTAL (test code = BILT) 0.6 mg/dL 0.2-1.0 N SGOT/AST (test code = AST) 24 units/L 15-37 N SGPT/ALT (test code = ALT) 17 units/L 12-78 N ALKALINE PHOSPHATASE TOTAL (test code = ALKP) 79 units/L 46-116 N [id number] 14:13:00 Test Item Value Reference Range Interpretation Comments LIPASE (test code = LIP) 57 units/L 73-393 L UA RFLX MICR CULT IF [id number] 13:55:00 Test Item Value Reference Range Interpretation Comments UA COLOR (test code = COLU) YELLOW YELLOW UA APPEARANCE (test code = Slightly-Cloudy CLEAR APPU) UA GLUCOSE DIPSTICK (test NEGATIVE NEG code = DGLUU) UA BILIRUBIN DIPSTICK (test NEGATIVE NEG code = BILU) UA KETONE DIPSTICK (test code NEGATIVE NEG = KETU) UA SPECIFIC GRAVITY (test 1.025 1.001-1.035 N code = SGU) UA BLOOD DIPSTICK (test code NEG NEG = MALLORIE) UA PH DIPSTICK (test code = 8.0 5-9 RAFAEL) UA PROTEIN DIPSTICK (test 1+ NEG A code = PROU) UA UROBILINIOGEN DIPSTICK NEGATIVE mg/dL NEG (test code = URO) UA NITRITE DIPSTICK (test NEG NEG code = JOVANY) UA LEUKOCYTE ESTERASE TRACE NEG A DIPSTICK (test code = LEUU) UA WBC (test code = WBCU) 6-10 #/hpf NONE SEEN A UA RBC (test code = RBCU) 0-2 #/hpf NONE SEEN UA EPITHELIAL CELLS (test MODERATE #/HPF RARE-FEW A code = EPIU) UA BACTERIA (test code = FEW /HPF RARE-FEW BACU) UA MUCUS (test code = MUCU) 2+ NONE SEEN Indication for culture: Suprapubic PainUR HCG [id number] 13:55:00 Test Item Value Reference Range Interpretation Comments UR HCG QUAL (test NEGATIVE 1. Very di lute urine code = HCGQLU) specimens, as indicated by a lowspecific g ravity, may not contain rep resentative levels ofhCG. 2 . False negative result s may occur when the levels of hCGare below the sensi tivity level of the test. If is still suspec nai, a first morningurine sp ecimen should be colle cted 48 hours later and tested. Indication for culture: Suprapubic PainDRUGS OF ABUSE [id number] 13:54:00 Test Item Value Reference Range Interpretation Comments UR COCAINE (test code = NEGATIVE NEGATIVE DETE CTION CUT OFF: COCAU) 150 ng/mL UR CANNABINOIDS (test POSITIVE NEGATIVE A RESULT S CALLED TO code = CANU) ANAI/ER.READ BACK & CONFIRMED? Y. BY VIMAL 3743. DETECTION CUT OFF: 50 ng/mL UR AMPHETAMINE (test code NEGATIVE NEGATIVE DE TECTION CUT OFF: = AMPHU) 500 ng/mL UR BARBITURATE QUAL (test NEGATIVE NEGATIVE DE TECTION CUT OFF: code = BARBQLU) 200 ng/mL UR BENZODIAZEPINE (test NEGATIVE NEGATIVE DETE CTION CUT OFF: code = BENZU) 150 ng/mL UR OPIATES QUAL (test NEGATIVE NEGATIVE DETECT ION CUT OFF: code = OPIAQLU) 100 ng/mL UR PHENCYCLIDINE (PCP) NEGATIVE NEGATIVE DETEC TION CUT OFF: (test code = PHENCU) 25 ng/m L UA RFLX MICR CULT IF [id number] 13:53:00 Test Item Value Reference Range Interpretation Comments UA COLOR (test code = COLU) YELLOW UA APPEARANCE (test code = APPU) CLEAR UA GLUCOSE DIPSTICK (test code = NEGATIVE DGLUU) UA BILIRUBIN DIPSTICK (test code = NEGATIVE BILU) UA KETONE DIPSTICK (test code = KETU) NEGATIVE UA SPECIFIC GRAVITY (test code = SGU) 1.001-1.035 UA BLOOD DIPSTICK (test code = MALLORIE) NEGATIVE UA PH DIPSTICK (test code = RAFAEL) 5-9 UA PROTEIN DIPSTICK (test code = PROU) NEGATIVE UA UROBILINIOGEN DIPSTICK (test code = mg/dL NEG URO) UA NITRITE DIPSTICK (test code = JOVANY) NEGATIVE UA LEUKOCYTE ESTERASE DIPSTICK (test NEG code = LEUU) UA WBC (test code = WBCU) #/hpf NONE SEEN UA EPITHELIAL CELLS (test code = EPIU) #/HPF RARE-FEW Indication for culture: Suprapubic PainUR HCG [id number] 13:53:00 Test Item Value Reference Range Interpretation Comments UR HCG QUAL (test NEGATIVE 1. Very di lute urine code = HCGQLU) specimens, as indicated by a lowspecific g ravity, may not contain rep resentative levels ofhCG. 2 . False negative result s may occur when the levels of hCGare below the sensi tivity level of the test. If is still suspec nai, a first morningurine sp ecimen should be colle cted 48 hours later and tested. Indication for culture: Suprapubic PainCBC W/AUTO [id number] 13:52:00 Test Item Value Reference Range Interpretation Comments WHITE BLOOD CELL (test code = WBC) 7.2 K/mm3 6.6-12.1 N RED BLOOD CELL (test code = RBC) 4.96 M/mm3 3.45-5.01 N HEMOGLOBIN (test code = HGB) 15.3 g/dL 10.7-13.9 H HEMATOCRIT (test code = HCT) 45.4 % 32.1-42.1 H MEAN CELL VOLUME (test code = MCV) 92 fL 84.1-94.8 N MEAN CELL HGB (test code = MCH) 30.8 pg 27-35 N MEAN CELL HGB CONCETRATION (test 33.7 gm/dL 32.2-34.1 N code = MCHC) RED CELL DISTRIBUTION WIDTH (test 12.0 % 12.4-16.5 L code = RDW) PLATELET COUNT (test code = PLT) 263 K/mm3 133-385 N MEAN PLATELET VOLUME (test code = 11.0 fl 9.1-12.7 N MPV) NEUTROPHIL % (test code = NT%) 72.5 % 56.5-79.4 N LYMPHOCYTE % (test code = LY%) 19.5 % 14.3-34.3 N MONOCYTE % (test code = MO%) 6.5 % 5.1-10.4 N EOSINOPHIL % (test code = EO%) 0.6 % 0.1-3.0 N BASOPHIL % (test code = BA%) 0.8 % 0.1-1.0 N NEUTROPHIL # (test code = NT#) 5.3 K/mm3 LYMPHOCYTE # (test code = LY#) 1.4 K/mm3 MONOCYTE # (test code = MO#) 0.5 K/mm3 EOSINOPHIL # (test code = EO#) 0.04 K/mm3 BASOPHIL # (test code = BA#) 0.1 K/mm3 RBC MORPHOLOGY REQUIRED (test code NORMAL NORMAL = RBCM) PLATELET MORPHOLOGY REQUIRED (test NORMAL NORMAL code = PLTMR)
[2020-06-01 00:10] LABS: SARS-COV-2 RT PCR NEGATIVE (NEGATIVE)
--- NOTE | 2020-06-01 00:12 | ER ---
Nurse's Notes [facility] Name: Dylan Lopes Age: 24 yrs Sex: Female : 1995 Arrival Date: 05/31/2020 Time: 19:17 Bed 23 Private MD: Diagnosis: Acute pharyngitis Presentation: 05/31 19:25 Chief complaint: Patient states: bodyaches, sore throat, delmis ear pain, upper abdominal ca1 pain. reports vomiting. Coronavirus screen: Client denies travel out of the [place] in the last 14 days. nausea, sore throat, vomiting. Client presents with at least one sign or symptom that may indicate coronavirus-19. Standard/surgical mask placed on the client. Provider contacted for isolation considerations. Ebola Screen: Patient negative for fever greater than or equal to 101.5 degrees Fahrenheit, and additional compatible Ebola Virus Disease symptoms Patient denies exposure to infectious person. Patient denies travel to an Ebola-affected area in the 21 days before illness onset. No symptoms or risks identified at this time. Initial Sepsis Screen: Does the patient meet any 2 criteria? No. Patient's initial sepsis screen is negative. Does the patient have a suspected source of infection? No. Patient's initial sepsis screen is negative. Risk Assessment: Do you want to hurt yourself or someone else? Patient reports no desire to harm self or others. Onset of symptoms was May 31, 2020. 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 - Social history:: Smoking status: Reported history of juuling and/or vaping. Screenin:00 Abuse screen: Denies threats or abuse. Nutritional screening: No deficits noted. jb4 Tuberculosis screening: No symptoms or risk factors identified. Fall Risk None identified. Assessment: 23:00 General: Appears in no apparent distress. uncomfortable, Behavior is calm, cooperative. jb4 Pain: Complains of pain in Generalized body aches Pain does not radiate. Pain currently is 9 out of 10 on a pain scale. Neuro: Level of Consciousness is awake, alert, obeys commands, Oriented to person, place. Cardiovascular: Patient's skin is warm and dry. Respiratory: Airway is patent Respiratory effort is even, unlabored. GI: Reports nausea. : No signs and/or symptoms were reported regarding the genitourinary system. EENT: Throat is clear is reddened with gag reflex present. Derm: No signs and/or symptoms reported regarding the dermatologic system. Musculoskeletal: No signs and/or symptoms reported regarding the musculoskeletal system. 06/01 00:00 Reassessment: Patient appears in no apparent distress at this time. Patient and/or jb4 family updated on plan of care and expected duration. Pain level reassessed. Patient is alert, oriented x 3, equal unlabored respirations, skin warm/dry/pink. Vital Signs: 05/31 19:25 BP 128 / 91; Pulse 88; Resp 16 S; Temp 98.7(TE); Pulse Ox 99% on R/A; Weight 62.6 kg ca1 (R); Height 5 ft. 8 in. (172.72 cm) (R); Pain 9/10; 23:00 BP 114 / 82; Pulse 76; Resp 16; Pulse Ox 98% on R/A; jb4 06/01 00:00 BP 118 / 88; Pulse 82; Resp 18; Pulse Ox 99% on R/A; jb4 05/31 19:25 Body Mass Index 20.98 (62.60 kg, 172.72 cm) ca1 ED Course: 05/31 19:17 Patient arrived in ED. ag3 19:27 Triage completed. ca1 19:27 Arm band placed on right wrist. ca1 22:46 Sid Najera, OSCAR is Primary Nurse. jb4 22:48 Alex Hemphill PA is PHCP. jr8 22:48 Ilene Hunt MD is Attending Physician. jr8 23:00 Patient has correct armband on for positive identification. Bed in low position. Call jb4 light in reach. Side rails up X 1. Pulse ox on. NIBP on. 06/01 00:45 No provider procedures requiring assistance completed. Patient did not have IV access jb4 during this emergency room visit. Administered Medications: No medications were administered Outcome: 00:11 Discharge ordered by . sabas 00:45 Discharged to home ambulatory. jb4 00:45 Condition: stable 00:45 Discharge instructions given to patient, Instructed on medication usage, Demonstrated understanding of instructions, follow-up care, medications, Prescriptions given X 3. 00:46 Patient left the ED. jb4 Signatures: Alex Hemphill PA PA jr8 Sid Najera RN RN jb4 Mitzi Holguin ag3 Lorrie Walton RN RN ca1
--- NOTE | 2020-06-01 00:12 | EDPHYS ---
Physician Documentation [facility] Name: Dylan Lopes Age: 24 yrs Sex: Female : 1995 Arrival Date: 05/31/2020 Time: 19:17 Bed 23 Private MD: ED Physician Ilene Hunt HPI: 05/31 23:12 This 24 yrs old Black Female presents to ER via Ambulatory with complaints of Sore jr8 Throat. 23:12 The patient presents with sore throat. The patient describes throat pain as raw. Onset: jr8 The symptoms/episode began/occurred acutely, today. Severity of symptoms: At their worst the symptoms were mild, in the emergency department the symptoms are unchanged. Modifying factors: The symptoms are alleviated by nothing, the symptoms are aggravated by swallowing. Associated signs and symptoms: Pertinent positives: earache, flu-like symptoms, headache. The patient has not experienced similar symptoms in the past. The patient has not recently seen a physician. RADIOLOGY ASST: 19:27 LMP N/A - control method ca1 Historical: - Allergies: 19:27 No Known Allergies; ca1 - Home Meds: 19:27 None [Active]; ca1 - PMHx: 19:27 None; ca1 - PSHx: 19:27 ; ca1 - Immunization history:: Flu vaccine is up to date. - Social history:: Smoking status: Reported history of juuling and/or vaping. ROS: 23:12 Eyes: Negative for injury, pain, redness, and discharge, Neck: Negative for injury, jr8 pain, and swelling, Cardiovascular: Negative for chest pain, palpitations, and edema, Respiratory: Negative for shortness of breath, cough, wheezing, and pleuritic chest pain, Abdomen/GI: Negative for abdominal pain, nausea, vomiting, diarrhea, and constipation, Back: Negative for injury and pain, MS/Extremity: Negative for injury and deformity, Skin: Negative for injury, rash, and discoloration. 23:12 Constitutional: Positive for body aches. 23:12 ENT: Positive for ear pain, sore throat. 23:12 Neuro: Positive for headache. Exam: 23:12 Eyes: Pupils equal round and reactive to light, extra-ocular motions intact. Lids and jr8 lashes normal. Conjunctiva and sclera are non-icteric and not injected. Cornea within normal limits. Periorbital areas with no swelling, redness, or edema. ENT: Nares patent. No nasal discharge, no septal abnormalities noted. Tympanic membranes are normal and external auditory canals are clear. Oropharynx with redness. No swelling, or masses, exudates, or evidence of obstruction, uvula midline. Mucous membranes moist. Neck: Trachea midline, no thyromegaly or masses palpated. cervical lymphadenopathy right side palpated with tenderness. Supple, full range of motion without nuchal rigidity, or vertebral point tenderness. No Meningismus. Cardiovascular: Regular rate and rhythm with a normal S1 and S2. No gallops, murmurs, or rubs. Normal PMI, no JVD. No pulse deficits. Respiratory: Lungs have equal breath sounds bilaterally, clear to auscultation and percussion. No rales, rhonchi or wheezes noted. No increased work of breathing, no retractions or nasal flaring. Abdomen/GI: Soft, non-tender, with normal bowel sounds. No distension or tympany. No guarding or rebound. No evidence of tenderness throughout. Back: No spinal tenderness. No costovertebral tenderness. Full range of motion. Skin: Warm, dry with normal turgor. Normal color with no rashes, no lesions, and no evidence of cellulitis. MS/ Extremity: Pulses equal, no cyanosis. Neurovascular intact. Full, normal range of motion. Neuro: Awake and alert, GCS 15, oriented to person, place, time, and situation. Cranial nerves II-XII grossly intact. Motor strength 5/5 in all extremities. Sensory grossly intact. Cerebellar exam normal. Normal gait. Vital Signs: 19:25 BP 128 / 91; Pulse 88; Resp 16 S; Temp 98.7(TE); Pulse Ox 99% on R/A; Weight 62.6 kg ca1 (R); Height 5 ft. 8 in. (172.72 cm) (R); Pain 9/10; 23:00 BP 114 / 82; Pulse 76; Resp 16; Pulse Ox 98% on R/A; jb4 06/01 00:00 BP 118 / 88; Pulse 82; Resp 18; Pulse Ox 99% on R/A; jb4 05/31 19:25 Body Mass Index 20.98 (62.60 kg, 172.72 cm) ca1 MDM: 05/31 22:48 Patient medically screened. [facility] 23:12 Data reviewed: vital signs, nurses notes, lab test result(s), and as a result, I will [facility] discharge patient. Data interpreted: Pulse oximetry: on room air is 99 %. Interpretation: normal. Counseling: I had a detailed discussion with the patient and/or guardian regarding: the historical points, exam findings, and any diagnostic results supporting the discharge/admit diagnosis, lab results, the need for outpatient follow up, a family practitioner, to return to the emergency department if symptoms worsen or persist or if there are any questions or concerns that arise at home. 05/31 22:55 Order name: Strep [facility] 05/31 22:55 Order name: Flu [facility] 05/31 22:55 Order name: COVID-19 : Document "Date of Symptom Onset" if Symptomatic. [facility] 05/31 23:30 Order name: Influenza Screen (A [facility] 05/31 23:30 Order name: CORONAVIRUS [facility] 06/01 00:01 Order name: Group A Streptococcus Rapid Sc; Complete Time: 00:01 [facility] 06/01 00:11 Order name: COVID-19/FLU A+B; Complete Time: 00:11 [facility] 06/01 00:16 Order name: Urine Dipstick-Ancillary (obtain specimen); Complete Time: 00:30 [facility] 06/01 00:16 Order name: Urine Test (obtain specimen); Complete Time: 00:30 [facility] 06/01 00:30 Order name: Urine Dipstick--Ancillary (enter results) 2 06/01 00:30 Order name: Urine --Ancillary (enter results) [facility] Administered Medications: No medications were administered Disposition: 06/01 02:13 Co-signature as Attending Physician, Ilene Hunt MD. ma2 Disposition: 06/01/20 00:11 Discharged to Home. Impression: Acute pharyngitis. - Condition is Stable. - Discharge Instructions: Pharyngitis. - Prescriptions for Prednisone 20 mg Oral Tablet - take 1 tablet by ORAL route once daily for 5 days; 5 tablet. Tessalon Perles 100 mg Oral Capsule - take 1 capsule by ORAL route every 8 hours As needed; 15 capsule. Zofran 4 mg Oral Tablet - take 1 tablet by ORAL route every 12 hours As needed; 20 tablet. - Medication Reconciliation Form, Thank You Letter, Antibiotic Education, Prescription Opioid Use form. - Follow up: Private Physician; When: As needed; Reason: Recheck today's complaints, Continuance of care, Re-evaluation by your physician. - Problem is new. - Symptoms have improved. Signatures: Dispatcher [employer] EDMS Alex Hemphill PA PA jr8 Sid Najera RN RN jb4 Ilene Hunt MD MD az2 Lorrie Walton RN RN ca1 Corrections: (The following items were deleted from the chart) 05/31 23:13 23:12 ENT: Positive for sore throat, jr8 jr8 06/01 00:46 00:11 06/01/2020 00:11 Discharged to Home. Impression: Acute pharyngitis. Condition is jb4 Stable. Forms are Medication Reconciliation Form, Thank You Letter, Antibiotic Education, Prescription Opioid Use. Follow up: Private Physician; When: As needed; Reason: Recheck today's complaints, Continuance of care, Re-evaluation by your physician. Problem is new. Symptoms have improved. jr8
[2020-06-01 00:48] LABS: Urine Blood 2+ (NEG); Urine Glucose NEGATIVE (NEG); Urine Protein NEGATIVE (NEG); Urine Specific Gravity 1.025 (1.005-1.030)
[2020-06-01 01:00] VITALS: TEMP 98.7
[2020-06-01 01:03] VITALS: BP 118/88; O2SAT 99
== END 2020-06-01 00:46 | disposition home or self-care (01) ==
LOC: ER 19:14
DX: J02.9 Acute pharyngitis, unspecified (principal); Z20.822 Contact with and (suspected) exposure to COVID-19; F17.290 Nicotine dependence, other tobacco product, uncomplicated
CPT/HCPCS: 0240U; 81003; 81025; 87070; 87081; 99283

== ENCOUNTER 2020-06-02 00:32 | Emergency (ER) | payer SELFPAY ==
--- OUTSIDE RECORDS SUMMARY | 2020-06-02 00:35 | XMS REPORT | Continuity of Care Document ---
:1995 Author Organization [facility] t Address [address] [place] [address] Care Team Providers Name Role Phone Visit, Nurse Attending Clinician Unavailable Alma Springer Attending Clinician Payers Payer Name Policy Type Policy Number Effective Date Expiration Date S ource Problems This patient has no known problems. Allergies, Adverse Reactions, Alerts Allergy Allergy Status Severity Reaction(s) Onset Inactive Treating Comm ents Source Name Type Date Date Clinician No Known DA Active U 2019- [facility] 5-27 [facility] [place] Medications This patient has no known medications. Procedures This patient has no known procedures. Encounters Start End Encounter Admission Attending Care Care Encounter Source Date/Time Date/Time Type Type Clinicians Facility Department ID 2020-05-24 2020-05-24 Nurse Visit, [facility] [id number] 14:58:09 15:06:57 Visit [facility] DSP ENGINEER [id number] Nurse REGIONAL [id number] MATERNAL [id number] & CHILD [address] [place] [address] 2020-03-01 2020-03-01 Nurse Visit, [facility] [id number] 15:03:57 15:34:52 Visit [facility] DSP ENGINEER [id number] Nurse [facility] [id number] MATERNAL [id number] & CHILD [address] [facility] 2019-11-30 2019-11-30 Office Douglas [facility] [id number] 13:20:31 14:15:04 Visit Norma Marquez DSP ENGINEER [id number] [facility] [id number] MATERNAL [id number] & CHILD 107 [facility] Results Test Description Test Time Test Comments Results Result Comments Source - US ABDOMEN LTD 2019-08-17 Patient Name: 15:38:00 IVIS WADE Unit No: [id number] EXAMS: CPT CODE: [id number] US ABDOMEN LTD 38126 EXAM: Right upper quadrant ultrasound. EXAM DATE: [...] Emily Abreu RDMS Probe: Trnscrbd D/ (1538) t.SDR.CER Orig Print D/T: S: 08/17/2019 (1543) [facility] NAME: HENRIETTA WADEIS Radiology Department PHYS: Mauri Le [address] : 1995 AGE: 24 SEX: F [place], [place] [address] LOC: ElenaERS PHONE #: [phone] EXAM DATE: 08/17/2019 STATUS: REG ER FAX #: [phone] RAD NO: Page 1 Signed Report Patient Name: IVIS WADE Unit No: [id number] EXAMS: CPT CODE: [id number] US ABDOMEN LTD 24233 <Continued> [facility] NAME: IVIS WADE Radiology Department PHYS: Mauri Le klever [address] : 1995 AGE: 24 SEX: F [place], [place] [address] LOC: PAZ PHONE #: [phone] EXAM DATE: 08/17/2019 STATUS: REG ER FAX #: [phone] RAD NO: Page 2 Signed Report COMPREHENSIVE [...] code = ALKP) 79 units/L 46-116 N [id number] 14:13:00 Test Item Value Reference Range Interpretation Comments LIPASE (test code = LIP) 57 units/L 73-393 L UA RFLX MICR CULT IF [id number] 13:55:00 Test Item Value Reference Range Interpretation [...] SEEN Indication for culture: Suprapubic PainUR HCG [id number] 13:55:00 Test Item Value Reference Range Interpretation [...] Indication for culture: Suprapubic PainDRUGS OF ABUSE [id number] 13:54:00 Test Item Value Reference Range Interpretation Comments UR COCAINE (test code = NEGATIVE NEGATIVE DETE CTION CUT OFF: COCAU) 150 ng/mL UR CANNABINOIDS (test POSITIVE NEGATIVE A RESULT S CALLED TO code = CANU) ANAI/ER.READ BACK & CONFIRMED? Y. BY FJasperLAB.GF 2013. DETECTION CUT OFF: 50 ng/mL UR AMPHETAMINE [...] ng/m L UA RFLX MICR CULT IF [id number] 13:53:00 Test Item Value Reference Range Interpretation [...] RARE-FEW Indication for culture: Suprapubic PainUR HCG [id number] 13:53:00 Test Item Value Reference Range Interpretation [...] tested. Indication for culture: Suprapubic PainCBC W/AUTO [id number] 13:52:00 Test Item Value Reference Range Interpretation [...]
--- NOTE | 2020-06-02 01:12 | ER ---
Nurse's Notes [facility] Name: Dylan Lopes Age: 24 yrs Sex: Female : 1995 Arrival Date: 06/02/2020 Time: 00:33 Bed 5 Private MD: Diagnosis: Acute pharyngitis;Vomiting, unspecified;Viral syndrome Presentation: 06/02 01:00 Chief complaint: Patient states: I have been sick since Thursday then started to throw up rr5 3x and abdominal pain tonight 2 hours ago. 01:00 Coronavirus screen: Client denies travel out of the [place] in the last 14 days. At this rr5 time, the client does not indicate any symptoms associated with coronavirus-19. Ebola Screen: Patient negative for fever greater than or equal to 101.5 degrees Fahrenheit, and additional compatible Ebola Virus Disease symptoms Patient denies exposure to infectious person. Patient denies travel to an Ebola-affected area in the 21 days before illness onset. Initial Sepsis Screen: Does the patient meet any 2 criteria? No. Patient's initial sepsis screen is negative. Does the patient have a suspected source of infection? No. Patient's initial sepsis screen is negative. Risk Assessment: Do you want to hurt yourself or someone else? Patient reports no desire to harm self or others. Onset of symptoms was May 28, 2020. 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 - Social history:: Smoking status: unknown. - Family history:: not pertinent. - Hospitalizations: : No recent hospitalization is reported. Screenin:12 Abuse screen: Denies threats or abuse. Denies injuries from another. Nutritional rr5 screening: No deficits noted. Tuberculosis screening: No symptoms or risk factors identified. Fall Risk None identified. Total Dos Santos Fall Scale indicates No Risk (0-24 pts). Assessment: 01:05 General: Appears in no apparent distress. uncomfortable, Behavior is calm, cooperative, rr5 appropriate for age. Pain: Complains of pain in left upper quadrant and left lower quadrant Pain currently is 8 out of 10 on a pain scale. Quality of pain is described as aching, Pain began gradually, Is intermittent. Neuro: Level of Consciousness is awake, alert, obeys commands, Oriented to person, place, time, situation. Cardiovascular: Capillary refill < 3 seconds Patient's skin is warm and dry. Respiratory: Airway is patent Respiratory effort is even, unlabored, Respiratory pattern is regular, symmetrical, GI: Abdomen is flat, Reports lower abdominal pain, upper abdominal pain, nausea, vomiting. : No signs and/or symptoms were reported regarding the genitourinary system. EENT: Throat is clear with gag reflex present, Reports pain in throat when swallowing. Derm: Skin is intact, is healthy with good turgor, Skin temperature is warm. Musculoskeletal: Capillary refill < 3 seconds. 01:48 Reassessment: Patient appears in no apparent distress at this time. Patient is alert, rr5 oriented x 3, equal unlabored respirations, skin warm/dry/pink. body tape splint right big toe.discharge instruction given and explained without complaints made. Vital Signs: 01:00 BP 154 / 78; Pulse 52; Resp 17; Temp 99.3; Pulse Ox 98% ; Weight 62.6 kg; Height 5 ft. rr5 8 in. (172.72 cm); Pain 8/10; 01:48 BP 122 / 65; Pulse 50; Resp 18; Pulse Ox 98% ; rr5 01:00 Body Mass Index 20.98 (62.60 kg, 172.72 cm) rr5 ED Course: 00:33 Patient arrived in ED. cl3 00:56 Abdirashid Chappell MD is Attending Physician. rn 01:08 Arm band placed on right wrist. rr5 01:09 Lucian Churchill RN is Primary Nurse. rr5 01:10 Patient has correct armband on for positive identification. Bed in low position. Call rr5 light in reach. 01:11 Triage completed. rr5 01:50 No provider procedures requiring assistance completed. Patient did not have IV access rr5 during this emergency room visit. Administered Medications: 01:11 Drug: Viscous Lidocaine Liquid (4 %) 5 ml Route: Mucous Membrane; rr5 01:51 Follow up: Response: No adverse reaction rr5 01:12 Drug: Zofran (Ondansetron) 4 mg Route: PO; rr5 01:50 Follow up: Response: No adverse reaction rr5 Outcome: 01:12 Discharge ordered by . rn 01:50 Discharged to home ambulatory. rr5 01:50 Condition: stable 01:50 Discharge instructions given to patient, Instructed on discharge instructions, follow up and referral plans. medication usage, Demonstrated understanding of instructions, follow-up care, medications, Prescriptions given X 1. 01:51 Patient left the ED. rr5 Signatures: Abdirashid Chappell MD MD rn Roque, Raymond, RN RN rr5 Michell Alfonso cl3
--- NOTE | 2020-06-02 01:13 | EDPHYS ---
Physician Documentation [facility] Name: Dylan Lopes Age: 24 yrs Sex: Female : 1995 Arrival Date: 06/02/2020 Time: 00:33 Bed 5 Private MD: ED Physician Abdirashid Chappell HPI: 06/02 01:08 This 24 yrs old Black Female presents to ER via Unassigned with complaints of Sore rn Throat, Abdominal Pain. 01:08 The patient presents with sore throat. The patient describes throat pain as dry, raw. rn Onset: The symptoms/episode began/occurred 4 day(s) ago. Severity of symptoms: At their worst the symptoms were moderate, in the emergency department the symptoms are unchanged. Modifying factors: The symptoms are alleviated by over the counter medications, the symptoms are aggravated by swallowing, Patient's oral intake status: good. Associated signs and symptoms: Pertinent positives: nausea, vomiting. The patient has experienced similar episodes in the past. The patient has been recently seen at the [facility] Emergency Department. Reports seen here yesterday for sore throat/abd pain, threw up today and made throat hurt more. No fever. No new symptoms. No sob. . 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 - Social history:: Smoking status: unknown. - Family history:: not pertinent. - Hospitalizations: : No recent hospitalization is reported. ROS: 01:08 Constitutional: Negative for fever, chills, and weight loss, Eyes: Negative for injury, rn pain, redness, and discharge, ENT: + sore throat Neck: Negative for injury, pain, and swelling, Cardiovascular: Negative for chest pain, palpitations, and edema, Respiratory: Negative for shortness of breath, cough, wheezing, and pleuritic chest pain, Abdomen/GI: + abd pain and nausea/vomiting : Negative for injury, bleeding, discharge, and swelling, Skin: Negative for injury, rash, and discoloration, Neuro: Negative for headache, weakness, numbness, tingling, and seizure. Exam: 01:08 Constitutional: This is a well developed, well nourished patient who is awake, alert, rn and in no acute distress. Head/Face: Normocephalic, atraumatic. ENT: Mild erythema pharyx, no swelling, no stridor, no evidence of APPROVER Neck: Trachea midline, no thyromegaly or masses palpated, and no cervical lymphadenopathy. Supple, full range of motion without nuchal rigidity, or vertebral point tenderness. No Meningismus. Abdomen/GI: soft, mild tenderness left abdomen, no RUQ/RLQ tenderness, no rebound or peritoneal signs. Vital Signs: 01:00 BP 154 / 78; Pulse 52; Resp 17; Temp 99.3; Pulse Ox 98% ; Weight 62.6 kg; Height 5 ft. rr5 8 in. (172.72 cm); Pain 8/10; 01:48 BP 122 / 65; Pulse 50; Resp 18; Pulse Ox 98% ; rr5 01:00 Body Mass Index 20.98 (62.60 kg, 172.72 cm) rr5 MDM: 00:56 Patient medically screened. rn 01:08 Differential diagnosis: gastroesophageal reflux disease, laryngitis, pharyngitis, viral rn syndrome. Data reviewed: vital signs, nurses notes, old medical records, and as a result, I will discharge patient. Counseling: I had a detailed discussion with the patient and/or guardian regarding: the historical points, exam findings, and any diagnostic results supporting the discharge/admit diagnosis, the need for outpatient follow up, to return to the emergency department if symptoms worsen or persist or if there are any questions or concerns that arise at home. Special discussion: I discussed with the patient/guardian in detail that at this point there is no indication for admission to the hospital. It is understood, however, that if the symptoms persist or worsen the patient needs to return immediately for re-evaluation. ED course: Most likely viral syndrome given sore throat for days and now with abd pain/cramping/vomiting. Neg COVID/strep/flu, will dc home with pcp f/u and zofran prn. States robitussin and throat lozenges improved symptoms. . Administered Medications: 01:11 Drug: Viscous Lidocaine Liquid (4 %) 5 ml Route: Mucous Membrane; rr5 01:51 Follow up: Response: No adverse reaction rr5 01:12 Drug: Zofran (Ondansetron) 4 mg Route: PO; rr5 01:50 Follow up: Response: No adverse reaction rr5 Disposition: 06/02/20 01:12 Discharged to Home. Impression: Acute pharyngitis, Vomiting, unspecified, Viral syndrome. - Condition is Stable. - Discharge Instructions: Nausea and Vomiting, Adult, Pharyngitis. - Prescriptions for Zofran ODT 4 mg Oral tablet,disintegrating - place 1 tablet by TRANSLINGUAL route every 8 hours As needed; 20 tablet. - Medication Reconciliation Form, Thank You Letter, Antibiotic Education, Prescription Opioid Use form. - Follow up: Private Physician; When: As needed; Reason: Recheck today's complaints, Re-evaluation by your physician. - Problem is an ongoing problem. - Symptoms have improved. Signatures: Abdirashid Chappell MD MD rn Roque, Raymond, RN RN rr5 Corrections: (The following items were deleted from the chart) 01:51 01:12 06/02/2020 01:12 Discharged to Home. Impression: Acute pharyngitis; Vomiting, rr5 unspecified; Viral syndrome. Condition is Stable. Forms are Medication Reconciliation Form, Thank You Letter, Antibiotic Education, Prescription Opioid Use. Follow up: Private Physician; When: As needed; Reason: Recheck today's complaints, Re-evaluation by your physician. Problem is an ongoing problem. Symptoms have improved. rn
[2020-06-02] MEDS ORDERED: ONDANSETRON 4 MG (ODT) TAB ONE (01:31)
[2020-06-02] MEDS ORDERED: LIDOCAINE VISCOUS 2% SOLN 15 ML UDC ONE (01:31)
[2020-06-02 02:13] VITALS: TEMP 99.3; O2SAT 98
[2020-06-02 02:19] VITALS: BP 122/65
== END 2020-06-02 01:51 | disposition home or self-care (01) ==
LOC: ER 00:32
DX: B34.9 Viral infection, unspecified (principal); R11.10 Vomiting, unspecified
CPT/HCPCS: 99283

== ENCOUNTER 2021-05-02 11:25 | Emergency (ER) | payer SELFPAY ==
--- OUTSIDE RECORDS SUMMARY | 2021-05-02 11:35 | XMS REPORT | Continuity of Care Document ---
:1995 Author Organization [facility] t Address [address] [place] [address] Care Team Providers Name Role Phone Alma Springer Primary Care Physician Alma Springer Attending Clinician Alma VALENZUELA Attending Clinician Unavailable Doctor Unassigned, Name Attending Clinician Unavailable Visit, Nurse Attending Clinician Unavailable Payers Payer Name Policy Type Policy Number Effective Date Expiration Date S ource Problems Condition Condition Condition Status Onset Resolution Last Treating Co mments Source Name Details Category Date Date Treatment Clinician Date Nexplanon Nexplanon Disease Active Uni vers in place in place 09-22 ity of 00:00: [address] Nexplanon Nexplanon Disease Active Uni vers insertion insertion 09-22 ity of 00:00: [address] Contracept Contracept Disease Active U nivers pati pati 6-18 [place] [address] [place] [address] Unfavorabl Unfavorabl Disease Active 2016-03 U nivers e cervix e cervix 0-16 ity of in term in term 00:00: [place] [address] [place] [address] Allergies, Adverse Reactions, Alerts Allergy Allergy Status Severity Reaction(s) Onset Inactive Treating Comm ents Source Name Type Date Date Clinician No Known DA Active [facility] [place] No Known DA Active U [facility] Allergie 5-27 [facility]: [facility] [place] NO KNOWN Drug Active Univers ALLERGIE Class ity of S [facility] Social History Social Habit Start Date Stop Date Quantity Comments Source Exposure to Not sure University of SARS-CoV-2 [place] [facility] (event) Branch Alcohol intake 2020-12-03 2020-12-03 Current University of 00:00:00 00:00:00 non-drinker of [facility] alcohol (finding) [place] Tobacco Comment 2020-12-03 2020-12-03 No longer uses Unive rsity of 00:00:00 00:00:00 marijuana [facility] Tobacco use and 2017-01-05 2017-01-05 Never used Universit y of exposure 00:00:00 00:00:00 [facility] History of 2016-05-10 Smoker University of tobacco use 00:00:00 [facility] Sex Assigned At [birth year] Universit y of 00:00:00 00:00:00 [facility] Smoking Status Start Date Stop Date Source Former smoker 2017-01-05 00:00:00 2017-01-05 00:00:00 Universi ty of [facility] Medications Ordered Filled Start Stop Current Ordering Indication Dosage Frequency Signature Comments Components Source Medication Medication Date Date Medication? Clinician (SIG) Name Name etonogestre 2020- No [id number] 68mg Univers L 8- 08-30 ity of (NEXPLANON) 17:15: 16:09 [place] implant 68 00 :00 Medical mg Branch etonogestre 2020- No [id number] 68mg 68 mg, Univers L 8- 08-30 Subdermal, ity of (NEXPLANON) 17:15: 16:09 ONCE NOW, [place] implant 68 00 :00 1 dose, Medica l mg Mon [place] 11/19/20 at 1215, Routine
Use approved by: [employer] etonogestre 2020- No [id number] 68mg Univers L 8-30 08-30 ity of (NEXPLANON) 17:15: 16:09 [place] implant 68 00 :00 Medical mg Branch etonogestre 2020- No [id number] 68mg 68 mg, Univers L 11-19 Subdermal, ity of (NEXPLANON) 17:15: 16:09 ONCE NOW, [place] implant 68 00 :00 1 dose, Medica l mg Mon Branch 11/19/20 at 1215, Routine
Use approved by: [employer] medroxyPROG 2020- No [id number] 150mg Univers ESTERone 11-29 ity of (DEPO-PROVE 19:15: 19:14 [place] RA) 00 :00 Medical injection Branch 150 mg medroxyPROG 2020- No [id number] 150mg 150 mg, Univers ESTERone 11-29 Intramuscu ity of (DEPO-PROVE 19:15: 19:14 lar, [place] RA) 00 :00 [id number], Medical injection 4 doses, Branch 150 mg First dose on Thu11/30/19 at 1415, Last dose on Thu08/08/20 at 1415, Routine medroxyPROG No [id number] 150mg Univers ESTERone 11-29 ity of (DEPO-PROVE 19:15: 19:14 [place] RA) 00 :00 Medical injection Branch 150 mg medroxyPROG 2020- No [id number] 150mg 150 mg, Univers ESTERone 11-29 Intramuscu ity of (DEPO-PROVE 19:15: 19:14 lar, [place] RA) 00 :00 [id number], Medical injection 4 doses, Branch 150 mg First dose on Thu11/30/19 at 1415, Last dose on Thu08/08/20 at 1415, Routine medroxyPROG 2020- No [id number] 150mg Univers ESTERone 11-29 ity of (DEPO-PROVE 19:15: 19:14 [place] RA) 00 :00 Medical injection Branch 150 mg medroxyPROG 2020- No [id number] 150mg 150 mg, Univers ESTERone 11-29 Intramuscu ity of (DEPO-PROVE 19:15: 19:14 lar, [place] RA) 00 :00 [id number], Medical injection 4 doses, Branch 150 mg First dose on Thu11/30/19 at 1415, Last dose on Thu08/08/20 at 1415, Routine medroxyPROG 2020-0 2020- No [id number] 150mg Univers ESTERone 11-29 ity of (DEPO-PROVE 19:15: 19:14 [place] RA) 00 :00 Medical injection Branch 150 mg medroxyPROG 2020-0 2020- No [id number] 150mg 150 mg, Univers ESTERone 11-29 Intramuscu ity of (DEPO-PROVE 19:15: 19:14 [facility]) 00 :00 [id number], Medical injection 4 doses, Branch 150 mg First dose on Thu11/30/19 at 1415, Last dose on Thu08/08/20 at 1415, Routine medroxyPROG 2020-0 2020- No [id number] 150mg Univers ESTERone 11-29 ity of (DEPO-PROVE 19:15: 20:03 [facility]) 00 :00 Medical injection Branch 150 mg medroxyPROG 2019-0 2020- No [id number] 150mg 150 mg, Univers ESTERone 11-29 Intramuscu ity of (DEPO-PROVE 19:15: 20:03 [facility]) 00 :00 [id number], Medical injection 4 doses, Branch 150 mg First dose on Thu11/30/19 at 1415, Last dose on Thu08/08/20 at 1415, Routine famotidine Yes [id number] 40mg Take 1 U nivers (PEPCID) 40 1-30 tablet by ity of mg tablet 00:00: mouth daily. Medical Branch famotidine Yes [id number] 40mg Take 1 U nivers (PEPCID) 40 1-30 tablet by ity of mg tablet 00:00: mouth 00 daily. Medical Branch famotidine Yes [id number] 40mg Take 1 U nivers (PEPCID) 40 1-30 tablet by ity of mg tablet 00:00: mouth 00 daily. Medical Branch famotidine Yes [id number] 40mg Take 1 U nivers (PEPCID) 40 1-30 tablet by ity of mg tablet 00:00: mouth 00 daily. Medical Branch famotidine Yes [id number] 40mg Take 1 U nivers (PEPCID) 40 1-30 tablet by ity of mg tablet 00:00: mouth [place] 00 daily. [facility] Branch famotidine Yes [id number] 40mg Take 1 U nivers (PEPCID) 40 1-30 tablet by ity of mg tablet 00:00: mouth [place] 00 daily. [facility] Branch famotidine Yes [id number] 40mg Take 1 U nivers (PEPCID) 40 1-30 tablet by ity of mg tablet 00:00: mouth [place] 00 daily. [facility] Branch famotidine Yes [id number] 40mg Take 1 U nivers (PEPCID) 40 1-30 tablet by ity of mg tablet 00:00: mouth [place] 00 daily. [facility] Branch famotidine Yes [id number] 40mg Take 1 U nivers (PEPCID) 40 1-30 tablet by ity of mg tablet 00:00: mouth [place] 00 daily. [facility] Branch famotidine Yes [id number] 40mg Take 1 U nivers (PEPCID) 40 1-30 tablet by ity of mg tablet 00:00: mouth [place] 00 daily. [facility] Branch famotidine Yes [id number] 40mg Take 1 U nivers (PEPCID) 40 1-30 tablet by ity of mg tablet 00:00: mouth [place] 00 daily. [facility] Branch famotidine Yes [id number] 40mg Take 1 U nivers (PEPCID) 40 1-30 tablet by ity of mg tablet 00:00: mouth [place] 00 daily. [facility] Branch famotidine Yes [id number] 40mg Take 1 U nivers (PEPCID) 40 1-30 tablet by ity of mg tablet 00:00: mouth [place] 00 daily. [facility] Branch famotidine Yes [id number] 40mg Take 1 U nivers (PEPCID) 40 1-30 tablet by ity of mg tablet 00:00: mouth [place] 00 daily. [facility] Branch famotidine Yes [id number] 40mg Take 1 U nivers (PEPCID) 40 1-30 tablet by ity of mg tablet 00:00: mouth [place] 00 daily. [facility] Branch famotidine Yes [id number] 40mg Take 1 U nivers (PEPCID) 40 1-30 tablet by ity of mg tablet 00:00: mouth [place] 00 daily. Medical Branch famotidine Yes [id number] 40mg Take 1 U nivers (PEPCID) 40 1-30 tablet by ity of mg tablet 00:00: mouth [place] 00 daily. [facility] Branch famotidine Yes [id number] 40mg Take 1 U nivers (PEPCID) 40 1-30 tablet by ity of mg tablet 00:00: mouth [place] 00 daily. [facility] Branch famotidine 2020- No [id number] 40mg Take 1 Univers (PEPCID) 40 1-30 09-13 tablet by it y of mg tablet 00:00: 00:00 mouth [place] 00 :00 daily. [facility] Branch famotidine 2020- No [id number] 40mg Take 1 Univers (PEPCID) 40 1-30 09-13 tablet by it y of mg tablet 00:00: 00:00 mouth [place] 00 :00 daily. [facility] Branch famotidine 2020- No [id number] 40mg Take 1 Univers (PEPCID) 40 1-30 09-13 tablet by it y of mg tablet 00:00: 00:00 mouth [place] 00 :00 daily. [facility] Branch famotidine 2020- No [id number] 40mg Take 1 Univers (PEPCID) 40 1-30 09-13 tablet by it y of mg tablet 00:00: 00:00 mouth [place] 00 :00 daily. Medical Branch ibuprofen 2016-03 Yes 800mg Take 1 Unive rs 800 mg 0-19 tablet by ity of tablet 00:00: mouth [place] 00 every 8 Medical (eight) Branch hours as needed for Pain (scale 1-3). ibuprofen 2016-03 Yes 800mg Take 1 Unive rs 800 mg 0-19 tablet by ity of tablet 00:00: mouth [place] 00 every 8 Medical (eight) Branch hours as needed for Pain (scale 1-3). ibuprofen 2016-03 Yes 800mg Take 1 Unive rs 800 mg 0-19 tablet by ity of tablet 00:00: mouth [place] 00 every 8 Medical (eight) Branch hours as needed for Pain (scale 1-3). ibuprofen 2016-03 Yes 800mg Take 1 Unive rs 800 mg 0-19 tablet by ity of tablet 00:00: mouth [place] 00 every 8 Medical (eight) Branch hours as needed for Pain (scale 1-3). ibuprofen 2017- Yes 800mg Take 1 Unive rs 800 mg 0-19 tablet by ity of tablet 00:00: mouth [place] 00 every 8 Medical (eight) Branch hours as needed for Pain (scale 1-3). ibuprofen 2017- Yes 800mg Take 1 Unive rs 800 mg 0-19 tablet by ity of tablet 00:00: mouth [place] 00 every 8 Medical (eight) Branch hours as needed for Pain (scale 1-3). ibuprofen 2016- Yes 800mg Take 1 Unive rs 800 mg 0-19 tablet by ity of tablet 00:00: mouth [place] 00 every 8 Medical (eight) Branch hours as needed for Pain (scale 1-3). ibuprofen 2016- Yes 800mg Take 1 Unive rs 800 mg 0-19 tablet by ity of tablet 00:00: mouth [place] 00 every 8 Medical (eight) Branch hours as needed for Pain (scale 1-3). ibuprofen 2016- Yes 800mg Take 1 Unive rs 800 mg 0-19 tablet by ity of tablet 00:00: mouth [place] 00 every 8 Medical (eight) Branch hours as needed for Pain (scale 1-3). ibuprofen 2016- Yes 800mg Take 1 Unive rs 800 mg 0-19 tablet by ity of tablet 00:00: mouth [place] 00 every 8 Medical (eight) Branch hours as needed for Pain (scale 1-3). ibuprofen 2016- Yes 800mg Take 1 Unive rs 800 mg 0-19 tablet by ity of tablet 00:00: mouth [place] 00 every 8 Medical (eight) Branch hours as needed for Pain (scale 1-3). ibuprofen 2017-1 Yes 800mg Take 1 Unive rs 800 mg 0-19 tablet by ity of tablet 00:00: mouth [place] 00 every 8 Medical (eight) Branch hours as needed for Pain (scale 1-3). ibuprofen 2017-1 Yes 800mg Take 1 Unive rs 800 mg 0-19 tablet by ity of tablet 00:00: mouth [place] 00 every 8 Medical (eight) Branch hours as needed for Pain (scale 1-3). ibuprofen 2017-1 Yes 800mg Take 1 Unive rs 800 mg 0-19 tablet by ity of tablet 00:00: mouth [place] 00 every 8 Medical (eight) Branch hours as needed for Pain (scale 1-3). ibuprofen 2016-03 Yes 800mg Take 1 Unive rs 800 mg 0-19 tablet by ity of tablet 00:00: mouth [place] 00 every 8 Medical (eight) Branch hours as needed for Pain (scale 1-3). ibuprofen 2016-03 Yes 800mg Take 1 Unive rs 800 mg 0-19 tablet by ity of tablet 00:00: mouth [place] 00 every 8 Medical (eight) Branch hours as needed for Pain (scale 1-3). ibuprofen 2016-03 Yes 800mg Take 1 Unive rs 800 mg 0-19 tablet by ity of tablet 00:00: mouth [place] 00 every 8 Medical (eight) Branch hours as needed for Pain (scale 1-3). ibuprofen 2016-03 Yes 800mg Take 1 Unive rs 800 mg 0-19 tablet by ity of tablet 00:00: mouth [place] 00 every 8 Medical (eight) Branch hours as needed for Pain (scale 1-3). ibuprofen 2016-03 Yes 800mg Take 1 Unive rs 800 mg 0-19 tablet by ity of tablet 00:00: mouth [place] 00 every 8 Medical (eight) Branch hours as needed for Pain (scale 1-3). ibuprofen 2016-03 Yes 800mg Take 1 Unive rs 800 mg 0-19 tablet by ity of tablet 00:00: mouth [place] 00 every 8 Medical (eight) Branch hours as needed for Pain (scale 1-3). ibuprofen 2016-03 Yes 800mg Take 1 Unive rs 800 mg 0-19 tablet by ity of tablet 00:00: mouth [place] 00 every 8 Medical (eight) Branch hours as needed for Pain (scale 1-3). ibuprofen 2016-03 Yes 800mg Take 1 Unive rs 800 mg 0-19 tablet by ity of tablet 00:00: mouth [place] 00 every 8 Medical (eight) Branch hours as needed for Pain (scale 1-3). Immunizations Ordered Filled Immunization Date Status Comments [facility] e Immunization Name Name HPV9 2020-03-01 Completed University of 00:00:00 [facility] Branch Influenza Virus 2020-03-01 Completed Universit y of Vaccine Quad .5 mL 00:00:00 [facility] 6+ MO Branch HPV9 2020-03-01 Completed University of 00:00:00 [facility] Influenza Virus 2020-03-01 Completed Universit y of Vaccine Quad .5 mL 00:00:00 [place] [facility] IM 6+ MO Branch HPV9 2020-03-01 Completed University of 00:00:00 [place] [facility] Influenza Virus 2020-03-01 Completed Universit y of Vaccine Quad .5 mL 00:00:00 [place] [facility] IM 6+ MO Branch HPV9 2020-03-01 Completed University of 00:00:00 [place] [facility] Influenza Virus 2020-03-01 Completed Universit y of Vaccine Quad .5 mL 00:00:00 [place] [facility] IM 6+ MO Branch HPV9 2020-03-01 Completed University of 00:00:00 [place] [facility] [place] Influenza Virus 2020-03-01 Completed Universit y of Vaccine Quad .5 mL 00:00:00 [place] [facility] IM 6+ MO Branch HPV9 2020-03-01 Completed University of 00:00:00 [place] [facility] [place] Influenza Virus 2020-03-01 Completed Universit y of Vaccine Quad .5 mL 00:00:00 [place] [facility] IM 6+ MO Branch HPV9 2020-03-01 Completed University of 00:00:00 [place] [facility] [place] Influenza Virus 2020-03-01 Completed Universit y of Vaccine Quad .5 mL 00:00:00 [place] [facility] IM 6+ MO Branch HPV9 2020-03-01 Completed University of 00:00:00 [place] [facility] [place] Influenza Virus 2020-03-01 Completed Universit y of Vaccine Quad .5 mL 00:00:00 [place] [facility] IM 6+ MO Branch HPV9 2020-03-01 Completed University of 00:00:00 [place] [facility] [place] Influenza Virus 2020-03-01 Completed Universit y of Vaccine Quad .5 mL 00:00:00 [place] [facility] IM 6+ MO Branch HPV9 2020-03-01 Completed University of 00:00:00 [place] [facility] [place] Influenza Virus 2020-03-01 Completed Universit y of Vaccine Quad .5 mL 00:00:00 [place] [facility] IM 6+ MO Branch HPV9 2020-03-01 Completed University of 00:00:00 [place] [facility] [place] Influenza Virus 2020-03-01 Completed Universit y of Vaccine Quad .5 mL 00:00:00 [place] [facility] IM 6+ MO Branch HPV9 2020-03-01 Completed University of 00:00:00 [place] [facility] [place] Influenza Virus 2020-03-01 Completed Universit y of Vaccine Quad .5 mL 00:00:00 [place] [facility] IM 6+ MO Branch HPV9 2020-03-01 Completed University of 00:00:00 [facility] Influenza Virus 2020-03-01 Completed Universit y of Vaccine Quad .5 mL 00:00:00 [facility] IM 6+ MO Branch HPV9 2020-03-01 Completed University of 00:00:00 [facility] Influenza Virus 2020-03-01 Completed Universit y of Vaccine Quad .5 mL 00:00:00 [facility] IM 6+ MO Branch HPV9 2019-11-23 Completed University of 00:00:00 [facility] HPV9 2019-11-23 Completed University of 00:00:00 [facility] Branch HPV9 2019-11-23 Completed University of 00:00:00 [facility] HPV9 2019-11-23 Completed University of 00:00:00 [facility] Branch HPV9 2019-11-23 Completed University of 00:00:00 [facility] HPV9 2019-11-23 Completed University of 00:00:00 [facility] HPV9 2019-11-23 Completed University of 00:00:00 [facility] HPV9 2019-11-23 Completed University of 00:00:00 [facility] HPV9 2019-11-23 Completed University of 00:00:00 [facility] HPV9 2019-11-23 Completed University of 00:00:00 [facility] Branch HPV9 2019-11-23 Completed University of 00:00:00 [facility] Branch HPV9 2019-11-23 Completed University of 00:00:00 [facility] Branch HPV9 2019-11-23 Completed University of 00:00:00 [facility] HPV9 2019-11-23 Completed University of 00:00:00 [facility] HPV9 2019-11-23 Completed University of 00:00:00 [facility] Branch HPV9 2019-11-23 Completed University of 00:00:00 [facility] HPV9 2019-11-23 Completed University of 00:00:00 [facility] HPV9 2018-09-10 Completed University of 00:00:00 [facility] HPV9 2018-09-10 Completed University of 00:00:00 [facility] Branch HPV9 2018-09-10 Completed University of 00:00:00 [facility] Branch HPV9 2018-09-10 Completed University of 00:00:00 [facility] HPV9 2018-09-10 Completed University of 00:00:00 [facility] HPV9 2018-09-10 Completed University of 00:00:00 [facility] HPV9 2018-09-10 Completed University of 00:00:00 [facility] HPV9 2018-09-10 Completed University of 00:00:00 [facility] Branch HPV9 2018-09-10 Completed University of 00:00:00 [facility] Branch HPV9 2018-09-10 Completed University of 00:00:00 [facility] HPV9 2018-09-10 Completed University of 00:00:00 [facility] Branch HPV9 2018-09-10 Completed University of 00:00:00 [facility] Branch HPV9 2018-09-10 Completed University of 00:00:00 [facility] Branch HPV9 2018-09-10 Completed University of 00:00:00 [facility] Branch HPV9 2018-09-10 Completed University of 00:00:00 [facility] Branch HPV9 2018-09-10 Completed University of 00:00:00 [facility] HPV9 2018-09-10 Completed University of 00:00:00 [facility] HPV9 2018-09-10 Completed University of 00:00:00 [facility] HPV9 2018-09-10 Completed University of 00:00:00 [facility] HPV9 2018-09-10 Completed University of 00:00:00 [facility] HPV9 2018-09-10 Completed University of 00:00:00 [facility] HPV9 2018-09-10 Completed University of 00:00:00 [facility] Influenza Virus 2017-01-08 Completed Universit y of Vaccine Quad IM 3+ 00:00:00 [facility] Influenza Virus 2017-01-08 Completed Universit y of Vaccine Quad IM 3+ 00:00:00 [facility] Influenza Virus 2017-01-08 Completed Universit y of Vaccine Quad IM 3+ 00:00:00 [facility] Influenza Virus 2017-01-08 Completed Universit y of Vaccine [place] IM 3+ 00:00:00 [facility] Influenza Virus 2017-01-08 Completed Universit y of Vaccine [place] IM 3+ 00:00:00 [facility] Influenza Virus 2017-01-08 Completed Universit y of Vaccine Quad IM 3+ 00:00:00 [facility] Influenza Virus 2017-01-08 Completed Universit y of Vaccine Quad IM 3+ 00:00:00 [facility] Influenza Virus 2017-01-08 Completed Universit y of Vaccine Quad IM 3+ 00:00:00 [facility] Influenza Virus 2017-01-08 Completed Universit y of Vaccine Quad IM 3+ 00:00:00 [facility] Influenza Virus 2017-01-08 Completed Universit y of Vaccine Quad IM 3+ 00:00:00 [facility] Influenza Virus 2017-01-08 Completed Universit y of Vaccine Quad IM 3+ 00:00:00 [facility] Influenza Virus 2017-01-08 Completed Universit y of Vaccine Quad IM 3+ 00:00:00 [facility] Influenza Virus 2017-01-08 Completed Universit y of Vaccine Quad IM 3+ 00:00:00 [facility] Influenza Virus 2017-01-08 Completed Universit y of Vaccine Quad IM 3+ 00:00:00 [facility] Influenza Virus 2017-01-08 Completed Universit y of Vaccine Quad IM 3+ 00:00:00 [facility] Influenza Virus 2017-01-08 Completed Universit y of Vaccine Quad IM 3+ 00:00:00 [facility] Influenza Virus 2017-01-08 Completed Universit y of Vaccine Quad IM 3+ 00:00:00 [facility] Influenza Virus 2017-01-08 Completed Universit y of Vaccine Quad IM 3+ 00:00:00 [facility] Influenza Virus 2017-01-08 Completed Universit y of Vaccine Quad IM 3+ 00:00:00 [facility] Influenza Virus 2017-01-08 Completed Universit y of Vaccine Quad IM 3+ 00:00:00 [facility] Influenza Virus 2017-01-08 Completed Universit y of Vaccine Quad IM 3+ 00:00:00 [facility] Influenza Virus 2017-01-08 Completed Universit y of Vaccine Quad IM 3+ 00:00:00 [facility] Vital Signs Vital Name Observation Time Observation Value Comments Source Systolic blood 2020-12-03 18:17:00 107 mm[Hg] Univer sity of pressure [facility] Diastolic blood 2020-12-03 18:17:00 68 mm[Hg] Unive rsity of pressure [facility] Heart rate 2020-12-03 18:17:00 85 /min [facility] [place] Body temperature 2020-12-03 18:17:00 37.5 [facility] [place] [facility] 2020-12-03 18:17:00 16 /min [facility] Body height 2020-12-03 18:17:00 170.2 cm Universi ty of [place] [facility] Body weight 2020-12-03 18:17:00 74.503 kg Universi ty of [place] [facility] BMI 2020-12-03 18:17:00 25.73 kg/m2 Universi ty of [place] [facility] Systolic blood 2020-11-19 13:45:00 119 mm[Hg] Univer sity of pressure [place] [facility] Diastolic blood 2020-11-19 13:45:00 78 mm[Hg] Unive rsity of pressure [place] [facility] Heart rate 2020-11-19 13:45:00 52 /min Universi ty of [place] [facility] Body temperature 2020-11-19 13:45:00 37 [place] Univ ersity of [place] [facility] Respiratory rate 2020-11-19 13:45:00 16 /min Univ ersity of [place] [facility] Body height 2020-11-19 13:45:00 170.2 cm Universi ty of [place] [facility] Body weight 2020-11-19 13:45:00 74.163 kg Universi ty of [place] [facility] BMI 2020-11-19 13:45:00 25.61 kg/m2 Universi ty of [place] [facility] Systolic blood 2020-08-16 19:53:00 122 mm[Hg] Univer sity of pressure [place] [facility] Diastolic blood 2020-08-16 19:53:00 81 mm[Hg] Unive rsity of pressure [place] [facility] Heart rate 2020-08-16 19:53:00 77 /min Universi ty of [place] [facility] Body temperature 2020-08-16 19:53:00 36.89 [place] Univ ersity of [place] [facility] Respiratory rate 2020-08-16 19:53:00 18 /min Univ ersity of [place] [facility] Body height 2020-08-16 19:53:00 170.2 cm Universi ty of [place] [facility] Body weight 2020-08-16 19:53:00 72.213 kg Universi ty of [place] [facility] BMI 2020-08-16 19:53:00 24.93 kg/m2 Universi ty [facility] [place] [facility] Systolic blood 2020-05-24 21:05:00 123 mm[Hg] Univer sity of pressure [place] [facility] Diastolic blood 2020-05-24 21:05:00 76 mm[Hg] Unive rsity of pressure [place] [facility] Heart rate 2020-05-24 21:05:00 69 /min Universi ty of [place] [facility] Body temperature 2020-05-24 21:05:00 36.44 [place] Univ ersity of [place] [facility] Respiratory rate 2020-05-24 21:05:00 16 /min Univ ersity of [place] [facility] Body height 2020-05-24 21:05:00 172.7 cm Universi ty of [place] [facility] Body weight 2020-05-24 21:05:00 69.945 kg Universi ty of [place] [facility] BMI 2020-05-24 21:05:00 23.45 kg/m2 Universi ty of [place] [facility] Systolic blood 2020-05-24 21:05:00 123 mm[Hg] Univer sity of pressure [place] [facility] Diastolic blood 2020-05-24 21:05:00 76 mm[Hg] Unive rsity of pressure [place] [facility] Heart rate 2020-05-24 21:05:00 69 /min Universi ty of [place] [facility] Body temperature 2020-05-24 21:05:00 36.44 [place] Univ ersity of [place] [facility] Respiratory rate 2020-05-24 21:05:00 16 /min [facility] Body height 2020-05-24 21:05:00 172.7 cm [facility] Body weight 2020-05-24 21:05:00 69.945 kg [facility] BMI 2020-05-24 21:05:00 23.45 kg/m2 [facility] Systolic blood 2020-03-01 21:11:00 115 mm[Hg] [facility] Diastolic blood 2020-03-01 21:11:00 78 mm[Hg] [facility] Heart rate 2020-03-01 21:11:00 70 /min [facility] Body temperature 2020-03-01 21:11:00 37.33 Esther [facility] Respiratory rate 2020-03-01 21:11:00 16 /min [facility] Body height 2020-03-01 21:11:00 172.7 cm [facility] Body weight 2020-03-01 21:11:00 68.748 kg [facility] BMI 2020-03-01 21:11:00 23.04 kg/m2 [facility] Systolic blood 2020-03-01 21:11:00 115 mm[Hg] [facility] Diastolic blood 2020-03-01 21:11:00 78 mm[Hg] [facility] Heart rate 2020-03-01 21:11:00 70 /min [facility] Body temperature 2020-03-01 21:11:00 37.33 Esther [facility] Respiratory rate 2020-03-01 21:11:00 16 /min [facility] Body height 2020-03-01 21:11:00 172.7 cm [facility] Body weight 2020-03-01 21:11:00 68.748 kg [facility] BMI 2020-03-01 21:11:00 23.04 kg/m2 [facility] Systolic blood 2019-11-30 18:29:00 103 mm[Hg] [facility] Diastolic blood 2019-11-30 18:29:00 55 mm[Hg] [facility] Heart rate 2019-11-30 18:29:00 63 /min [facility] Body temperature 2019-11-30 18:29:00 36.61 Esther [facility] Respiratory rate 2019-11-30 18:29:00 16 /min [facility] Body height 2019-11-30 18:29:00 172.7 cm [facility] Body weight 2019-11-30 18:29:00 68.04 kg [facility] BMI 2019-11-30 18:29:00 22.81 kg/m2 [facility] Systolic blood 2019-11-30 18:29:00 103 mm[Hg] [facility] Diastolic blood 2019-11-30 18:29:00 55 mm[Hg] [facility] Heart rate 2019-11-30 18:29:00 63 /min [facility] Body temperature 2019-11-30 18:29:00 36.61 Esther [facility] Respiratory rate 2019-11-30 18:29:00 16 /min [facility] Body height 2019-11-30 18:29:00 172.7 cm [facility] Body weight 2019-11-30 18:29:00 68.04 kg [facility] BMI 2019-11-30 18:29:00 22.81 kg/m2 [facility] Systolic blood 2019-11-23 19:05:00 107 mm[Hg] [facility] Diastolic blood 2019-11-23 19:05:00 69 mm[Hg] [facility] Heart rate 2019-11-23 19:05:00 81 /min [facility] Body temperature 2019-11-23 19:05:00 37.33 Esther [facility] Res[facility] rate 2019-11-23 19:05:00 16 /min [facility] Body height 2019-11-23 19:05:00 172.7 cm [facility] Body weight 2019-11-23 19:05:00 68.578 kg [facility] BMI 2019-11-23 19:05:00 22.99 kg/m2 [facility] Procedures Procedure Date / Time Performing Clinician Source Performed ASSIGNMENT OF BENEFITS 2020-12-03 17:53:00 Doctor Unassigned, No [facility] POCT TEST 2020-11-19 13:47:00 Norma Valenzuela [facility] CONSENT FOR 2020-11-19 05:01:00 Doctor Unassigned, No [facility] FLU VACC ([id number]), 6+ 2020-03-01 21:35:46 Norma Valenzuela [facility] MONTHS, IM, [facility] GARDASIL 9 (HPV 9V) 2020-03-01 21:35:17 Norma Valenzuela [facility] GARDASIL 9 (HPV 9V) 2019-11-23 20:48:44 Norma Valenzuela [facility] ASSIGNMENT OF BENEFITS 2019-11-23 18:53:24 Doctor Unassigned, No [facility] Encounters Start End Encounter Admission Attending Care Care Encounter Source Date/Time Date/Time Type Type Clinicians Facility Department ID 2019-08-17 Inpatient [facility] [id number] [facility] 13:20:00 [id number] [facility] 2020-12-03 2020-12-03 Office DouglasRUST [id number] Univers 12:54:13 13:56:14 Visit Noram Marquez [employer] 350.1.13.10 ity of [facility] [id number] Nico as MATERNAL [phone] [facility] & CHILD [address] [place] [address] 2020-12-03 2020-12-03 Outpatient R DOUGLAS, [facility] [id number] Univers 13:15:00 13:15:[address] [facility] 2020-12-03 2020-12-03 Orders Doctor RAHEL [id number] Univers 00:00:00 00:00:00 Only Unassigned, BIBI 350.1.13.10 ity of [place] [facility] 4.2.7.2.686 Nico as [phone] [address] 2020-11-19 2020-11-19 Office DouglasRUST [id number] Univers 08:28:15 09:04:26 Visit Norma Marquez [employer] [id number] ity of [facility] [id number] Nico as MATERNAL [phone] [facility] & CHILD [address] [place] [address] 2020-11-19 2020-11-19 Outpatient R DOUGLAS, [facility] [id number] Univers 08:30:00 08:30:00 NORMA [id number] gómez ernst [facility] 2020-11-19 2020-11-19 Outpatient R DOUGLAS, [facility] [id number] Univers 08:30:00 08:30:[address] [facility] 2020-11-19 2020-11-19 Outpatient R AKINSIPE, [facility] [id number] Univers 08:30:00 08:30:[address] [facility] 2020-11-19 2020-11-19 Orders Doctor RAHEL [id number] Univers 00:00:00 00:00:00 Only Unassigned, BIBI 350.1.13.10 ity of [place] [facility] [id number] Nico as [phone] [address] 2020-11-08 2020-11-08 Outpatient R [facility] [id number] Univers 15:30:00 15:30:00 [id number] ity [facility] 2020-11-08 2020-11-08 Outpatient R [facility] [id number] Univers 15:30:00 15:30:00 ity [facility] 2020-11-07 2020-11-07 [facility] [id number] Univers 10:00:00 10:00:00 NORMA [id number] ity o [facility] 2020-11-07 2020-11-07 [facility] [id number] Univers 10:00:00 10:00:[address] [facility] 2020-11-07 2020-11-07 Telephone [facility] [id number] Univers 00:00:00 00:00:00 Norma Marquez [employer] 350.1.13.10 ity of [facility] [id number] Nico as MATERNAL [phone] [facility] ical & CHILD [address] [place] [address] 2020-10-30 2020-10-30 Telephone [facility] [id number] Univers 00:00:00 00:00:00 Norma Marquez [employer] [id number] ity of [facility] [id number] Nico as MATERNAL [phone] [facility] [address] [place] [address] 2020-08-21 2020-08-21 [facility] [id number] Univers 16:00:00 16:00:[id number] ity o [facility] 2020-08-21 2020-08-21 [facility] [id number] Univers 16:00:00 16:00:[address] [facility] 2020-08-16 2020-08-16 Nurse Visit, [place] Nurse [facility] 1.2 .840.114 [id number] Univers 14:46:36 15:01:36 Visit Norma Valenzuela [employer] 350.1.13. 10 ity of REGIONAL 4.2.7.2.686 Nico as MATERNAL [phone] [facility] & CHILD [address] [place] [address] 2020-08-16 2020-08-16 [facility] [id number] Univers 15:00:00 15:00:[address] [facility] 2020-08-16 2020-08-16 Outpatient R [facility] [id number] Univers 14:30:00 14:30:00 [id number] ity [facility] 2020-08-16 2020-08-16 Outpatient R [facility] [id number] Univers 14:30:00 14:30:00 [facility] 2020-05-24 2020-05-24 Nurse Visit, [facility] [id number] [id number] 14:58:09 15:06:57 Visit Rizwana [employer] 350.1.13.10 Nurse REGIONAL 4.2.7.2.686 MATERNAL [phone] & CHILD [address] [place] [address] 2020-05-24 2020-05-24 Nurse Visit, [place] Nurse [facility] 1.2 .840.114 [id number] Univers 14:58:09 15:06:57 Visit Norma Valenzuela [employer] 350.1.13. 10 ity of REGIONAL [id number] Nico as MATERNAL [phone] [facility] & CHILD [address] [place] [address] 2020-05-24 2020-05-24 Outpatient R [facility] [id number] Univers 15:00:00 15:00:00 [id number] ity [facility] 2020-05-24 2020-05-24 Outpatient R [facility] [id number] Univers 15:00:00 15:00:00 ity [facility] 2020-03-01 2020-03-01 Nurse Visit, [facility] 1.2.840.114 [id number] 15:03:57 15:34:52 Visit Romulo-Lola [employer] 350.1.13.10 Nurse [facility] 4.2.7.2.686 MATERNAL [phone] & CHILD [address] [place] [address] 2020-03-01 2020-03-01 Nurse Visit, [facility] Nurse [facility] 1.2 .840.114 [id number] Univers 15:03:57 15:34:52 Visit Norma Valenzuela [employer] 350.1.13. 10 [facility] [id number] Nico as MATERNAL [phone] Med ical & CHILD [address] [place] [address] 2020-03-01 2020-03-01 Outpatient R [facility] [id number] Univers 15:00:00 15:00:00 [id number] ity [facility] 2020-03-01 2020-03-01 Outpatient R [facility] [id number] Univers 15:00:00 15:00:00 ity [facility] 2020-03-01 2020-03-01 [facility] [id number] Univers 15:00:00 15:00:00 NORMA magaña o f [facility] 2020-02-22 2020-02-22 Outpatient R [facility] [id number] Univers 13:30:00 13:30:00 ity [facility] 2020-02-22 2020-02-22 Outpatient R [facility] [id number] Univers 13:30:00 13:30:00 [facility] 2019-11-30 2019-11-30 Office Douglas [facility] [id number] 13:20:31 14:15:04 Visit Norma Marquez [employer] 350.1.13.10 [facility] 4.2.7.2.686 MATERNAL [phone] & CHILD [address] [place] [address] 2019-11-30 2019-11-30 Office Akinsipe, [facility] [id number] Univers 13:20:31 14:15:04 Visit Norma C [employer] ASSEM[employer]ER 350.1.13.10 ity of [facility] [id number] Nico as MATERNAL [phone] [facility] ical & CHILD [address] [place] [address] 2019-11-30 2019-11-30 Outpatient R AKINSIPE, [facility] [id number] Univers 13:30:00 13:30:[address] [facility] 2019-11-30 2019-11-30 Outpatient R AKINSIPE, [facility] [id number] Univers 13:30:00 13:30:[address] [facility] 2019-11-23 2019-11-23 [facility] [id number] Univers 13:50:16 15:50:06 Visit Norma Marquez [employer]ER 350.1.13.10 ity of [facility] [id number] Nico as MATERNAL [phone] [facility] & CHILD [address] [place] [address] 2019-11-23 2019-11-23 Outpatient R AKINSIPE, [facility] [id number] Univers 13:45:00 13:45:[address] [facility] 2019-11-23 2019-11-23 Outpatient R AKINSIPE, [facility] [id number] Univers 13:45:00 13:45:[address] [facility] 2019-11-23 2019-11-23 Orders Doctor MCGINNIS 1.2.840.114 [id number] Univers 00:00:00 00:00:00 Only Unassigned, BIBI 350.1.13.10 ity of [facility] 4.2.7.2.686 Nico as [phone] [address] 2019-11-22 2019-11-22 Outpatient R AKINSIPE, [facility] [id number] Univers 15:45:00 15:45:00 NORMA ity o jaqueline [facility] 2019-11-22 2019-11-22 Outpatient R DOUGLAS [facility] [id number] [facility] 15:45:00 15:45:00 NORMA jensentawny o f [facility] 2019-11-21 2019-11-21 Telephone Douglas [facility] [id number] [id number] [facility] 00:00:00 00:00:00 Norma Marquez [employer] AS[employer] 350.1.13.10 ity of [facility] 4.2.7.2.686 Nico as MATERNAL [phone] Med ical & CHILD [address] [place] [address] Results Test Description Test Time Test Comments Results Result Comments Source POCT TEST 2020-11-19 13:47:00 Test Item Value Reference Range Interpretation Comme nts POCT PREG (test code = 1605) Negative On board controls acceptable with C Line (test code = 3574) Yes POCT PREG LOT # (test code = 3575) POCT PREG TEST DATE (test code = 3576) [id number] 13:47:00 Test Item Value Reference Range Interpretation Comments POCT PREG (test code = 1605) Negative On board controls acceptable with C Yes Line (test code = 3574) POCT PREG LOT # (test code = 3575) POCT PREG TEST DATE (test code = 3576) [facility]- US ABDOMEN [id number] 15:38:00 Patient Name: IVIS WADE Unit No: [id number] EXAMS: CPT CODE: [id number] ABDOMEN LTD 48153 EXAM: Right upper quadrant ultrasound. EXAM DATE: August 17, 2019. CLINICAL HISTORY: Epigastric pain and vomiting.. Real-time imaging of the abdomen demonstrated a normal appearing liver, pancreas, gallbladder, and biliary ductal system. Renal fusion anomaly is noted. Theliver measures 15.6 cm. The common bile duct measures 0.2 cm. The visualized portions of the IVC and aorta are within normal limits. IMPRESSION: Renal fusion anomaly (horseshoe kidney) noted.No other significant findings identified. at 1538 Reported and signed by: Shahida Carmichael MD CC: Eduardo Jaramillo MD Technologist: Emily Abreu RDMS Probe: Trnscrbd D/ (153) t.FERNANDARJasperCER Orig Print D/T: S: 08/17/2019 (2515) [facility] NAME: IVIS WADE Radiology Department PHYS: SARA JaramilloEduardo [address] : 1995 AGE: 24 SEX: F [place] [address] LOC: ElenaERS PHONE #: [phone] EXAM DATE: 08/17/2019 STATUS: REG ER FAX #: [phone] RAD NO: Page 1 Signed Report Patient Name: IVIS WADE Unit No: [id number] EXAMS: CPT CODE: [id number] US ABDOMEN LTD 18562 <Continued> [facility] NAME: IVIS WADE Radiology Department PHYS: Eduardo Le [address] : 1995 AGE: 24 SEX: F [place] [address] LOC: F.ERS PHONE #: [phone] EXAM DATE: 08/17/2019 STATUS: REG ER FAX #: [phone] RAD NO: Page 2 Signed ReportCOMPREHENSIVE METABOLIC [id number] 14:13:00 Test Item Value Reference Range Interpretation Comments SODIUM (test code = NA) 141 mEq/L 135-145 N POTASSIUM (test code = K) 3.9 mEq/L 3.5-5.0 N CHLORIDE (test code = CL) 101 mEq/L 100-115 N CARBON DIOXIDE (test code = CO2) 30 mEq/L 22-31 N ANION GAP (test code = GAP) 14.30 10-20 N GLUCOSE (test code = GLU) 95 mg/dL 65-110 N BLOOD UREA NITROGEN (test code = 9 mg/dL 7-18 N BUN) GLOMERULAR FILTRATION RATE (test 78 ml/min >60 N code = GFR) CREATININE (test code = CREAT) 0.9 mg/dL [...] units/L 12-78 N ALKALINE PHOSPHATASE TOTAL (test 79 units/L 46-116 N code = ALKP) [id number] 14:13:00 Test Item Value Reference Range Interpretation Comments LIPASE (test code = LIP) 57 units/L 73-393 L UA RFLX MICR CULT IF [id number] 13:55:00 Test Item Value Reference Range Interpretation [...] SEEN Indication for culture: Suprapubic PainUR HCG [id number] 13:55:00 Test Item Value Reference Range Interpretation [...] Indication for culture: Suprapubic PainDRUGS OF ABUSE [id number] 13:54:00 Test Item Value Reference Range Interpretation Comments UR COCAINE (test code = NEGATIVE NEGATIVE DETE CTION CUT OFF: COCAU) 150 ng/mL UR CANNABINOIDS (test POSITIVE NEGATIVE A RESULT S CALLED TO code = CANU) ANAI/ER.READ BACK & CONFIRMED? Y. BY ELEANOR 3603. DETECTION CUT OFF: 50 ng/mL UR AMPHETAMINE [...] ng/m L UA RFLX MICR CULT IF [id number] 13:53:00 Test Item Value Reference Range Interpretation [...] RARE-FEW Indication for culture: Suprapubic PainUR HCG [id number] 13:53:00 Test Item Value Reference Range Interpretation [...] tested. Indication for culture: Suprapubic PainCBC W/AUTO [id number] 13:52:00 Test Item Value Reference Range Interpretation [...]
--- NOTE | 2021-05-02 12:23 | RAD REPORT ---
EXAM DESCRIPTION: RAD - Chest Single View - 05/02/2021 11:52 am CLINICAL HISTORY: COUGH COMPARISON: No comparisonsNo comparisons FINDINGS: Lines: None. Lungs: Bronchial wall thickening and interstitial prominence is present bilaterally. No consolidation . No edema. Pleural: No significant pleural effusions or pneumothorax. Cardiac: The heart size is within normal limits. Bones: No acute fractures. Other: IMPRESSION: Nonspecific bronchial wall interstitial could reflect a mild infectious or inflammatory process
[2021-05-02 12:24] LABS: Urine Blood 1+ (Negative); Urine Glucose Negative (Negative); Urine Protein Negative (Negative); Urine Specific Gravity 1.015 (1.005-1.030); Urine pH 6.5 (5.0-7.0)
[2021-05-02 13:10] LABS: SARS-COV-2 RT PCR NEGATIVE (NEGATIVE)
[2021-05-02] MEDS ORDERED: IBUPROFEN 400 MG TAB ONE (13:17)
[2021-05-02] MEDS ORDERED: OSELTAMIVIR 75 MG CAP ONE (13:19)
--- NOTE | 2021-05-02 13:21 | ER ---
Nurse's Notes [facility] Name: Dylan Lopes Age: 25 yrs Sex: Female : 1995 Arrival Date: 05/02/2021 Time: 11:28 Bed 17 Private MD: Diagnosis: Influenza due to other identified influenza virus with pneumonia Presentation: 05/02 11:28 Chief complaint: Patient states: "I have had a cough, sinus congestion and fatigue ab2 since yesterday. This morning I felt SOB and couldn't manage it at home any more so i came in.". Coronavirus screen: Vaccine status: Patient reports receiving the 2nd dose of the covid vaccine. Client denies travel out of the [place] in the last 14 days. chills, congestion, cough unrelated to allergies, difficulty breathing, fatigue, shortness of breath, Client presents with at least one sign or symptom that may indicate coronavirus-19. Standard/surgical mask placed on the client. Provider contacted for isolation considerations. Ebola Screen: Patient negative for fever greater than or equal to 101.5 degrees Fahrenheit, and additional compatible Ebola Virus Disease symptoms Patient denies exposure to infectious person. Patient denies travel to an Ebola-affected area in the 21 days before illness onset. No symptoms or risks identified at this time. Initial Sepsis Screen: Does the patient meet any 2 criteria? No. Patient's initial sepsis screen is negative. Does the patient have a suspected source of infection? No. Patient's initial sepsis screen is negative. Risk Assessment: Do you want to hurt yourself or someone else? Patient reports no desire to harm self or others. Onset of symptoms is unknown. 11:28 Method Of Arrival: EMS: [facility] ab2 11:34 Acuity: CORONA 4 ab2 Historical: - Allergies: 11:32 No Known Allergies; ab2 - Home Meds: 11:32 None [Active]; ab2 - PMHx: 11:32 None; ab2 - PSHx: 11:32 None; ab2 - Immunization history:: Adult Immunizations up to date, Client reports receiving the 2nd dose of the Covid vaccine. - Social history:: Smoking status: Patient denies any tobacco usage or history of. Patient uses street drugs, marijuana. Screenin:34 Abuse screen: Denies threats or abuse. Denies injuries from another. Nutritional ab2 screening: No deficits noted. Tuberculosis screening: No symptoms or risk factors identified. Fall Risk None identified. Assessment: 11:32 General: Appears in no apparent distress. comfortable, Behavior is calm, cooperative, ab2 appropriate for age. Pain: Complains of pain in back. Neuro: Level of Consciousness is awake, alert, obeys commands, Oriented to person, place, time, situation, Appropriate for age Automatic Lathe Operator are equal bilaterally Moves all extremities. Gait is steady, Speech is normal, Facial symmetry appears normal. Cardiovascular: No deficits noted. Reports fatigue, shortness of breath, Denies chest pain, Heart tones S1 S2 present Capillary refill < 3 seconds Rhythm is sinus rhythm. Respiratory: Reports shortness of breath cough that is Airway is patent Respiratory effort is even, unlabored, Respiratory pattern is regular, symmetrical, Breath sounds are clear bilaterally. GI: No deficits noted. No signs and/or symptoms were reported involving the gastrointestinal system. Abdomen is round non-distended. : No deficits noted. No signs and/or symptoms were reported regarding the genitourinary system. EENT: No deficits noted. No signs and/or symptoms were reported regarding the EENT system. Derm: No deficits noted. No signs and/or symptoms reported regarding the dermatologic system. Skin is intact, is healthy with good turgor. Musculoskeletal: Reports pain in back. Vital Signs: 11:28 BP 122 / 80; Pulse 88; Resp 16; Temp 98.4(O); Pulse Ox 98% on R/A; Weight 65.77 kg; ab2 Height 5 ft. 8 in. (172.72 cm); Pain 3/10; 13:20 BP 117 / 81; Pulse 81; Resp 16; Pulse Ox 99% on R/A; ab2 11:28 Body Mass Index 22.05 (65.77 kg, 172.72 cm) ab2 ED Course: 11:28 Patient arrived in ED. ab2 11:28 Olegario Todd PA is PHCP. cp 11:28 Carlene Pabon MD is Attending Physician. cp 11:33 Placed in gown. Bed in low position. Call light in reach. Side rails up X2. tp1 11:34 Triage completed. ab2 11:34 Arm band placed on right wrist. ab2 11:34 No provider procedures requiring assistance completed. ab2 11:35 Dylan Barnett is Primary Nurse. ab2 11:35 COVID-19/FLU A+B (Document "Date of Onset" if Symptomatic) Sent. ab2 11:52 XRAY Chest (1 view) In Process Unspecified. EDMS 13:35 Patient did not have IV access during this emergency room visit. ab2 Administered Medications: 13:20 Drug: Ibuprofen 800 mg Route: PO; ab2 13:20 Drug: Tamiflu (oseltamivir) 75 mg Route: PO; ab2 Outcome: 13:20 Discharge ordered by . farrah 13:35 Discharged to home ambulatory. ab2 13:35 Condition: good 13:35 Discharge instructions given to patient, Instructed on discharge instructions, follow up and referral plans. medication usage, Demonstrated understanding of instructions, follow-up care, medications, Prescriptions given X 4. 13:35 Patient left the ED. ab2 Signatures: Dispatcher [employer] EDIL Olegario Todd PA PA cp Parker, Tiffany tp1 Dylan Barnett ab2
--- NOTE | 2021-05-02 13:21 | EDPHYS ---
Physician Documentation [facility] Name: Dylan Lopes Age: 25 yrs Sex: Female : 1995 Arrival Date: 05/02/2021 Time: 11:28 Bed 17 Private MD: ED Physician Carlene Pabon HPI: 05/02 11:35 This 25 yrs old Black Female presents to ER via EMS with complaints of Cough. cp Historical: - Allergies: 11:32 No Known Allergies; ab2 - Home Meds: 11:32 None [Active]; ab2 - PMHx: 11:32 None; ab2 - PSHx: 11:32 None; ab2 - Immunization history:: Adult Immunizations up to date, Client reports receiving the 2nd dose of the Covid vaccine. - Social history:: Smoking status: Patient denies any tobacco usage or history of. Patient uses street drugs, marijuana. ROS: 11:40 Constitutional: Positive for body aches, Negative for fever, poor PO intake. cp 11:40 Eyes: Negative for injury, pain, redness, and discharge. cp 11:40 ENT: Positive for sinus congestion, Negative for ear pain, sore throat, difficulty swallowing, difficulty handling secretions. 11:40 Cardiovascular: Negative for chest pain, palpitations. 11:40 Respiratory: Positive for cough, shortness of breath. 11:40 Abdomen/GI: Negative for abdominal pain, nausea, vomiting, and diarrhea. 11:40 Skin: Negative for rash. 11:40 Neuro: Negative for altered mental status, dizziness, headache, weakness. 11:40 All other systems are negative. Exam: 11:45 Constitutional: The patient appears in no acute distress, alert, awake, non-toxic, well cp developed, well nourished. 11:45 Head/Face: Normocephalic, atraumatic. cp 11:45 Eyes: Periorbital structures: appear normal, Conjunctiva: normal, no exudate, no injection, Lids and lashes: appear normal, bilaterally. 11:45 ENT: External ear(s): are unremarkable, Nose: is normal, Mouth: Lips: moist, Oral mucosa: moist, Posterior pharynx: Airway: no evidence of obstruction, patent, erythema, that is mild, exudate, is not appreciated. 11:45 Neck: ROM/movement: is normal, is supple, without pain, no range of motions limitations. 11:45 Chest/axilla: Inspection: normal, Palpation: is normal, no crepitus, no tenderness. 11:45 Cardiovascular: Rate: normal, Rhythm: regular. 11:45 Respiratory: the patient does not display signs of respiratory distress, Respirations: normal, no use of accessory muscles, no retractions, labored breathing, is not present, Breath sounds: bronchial sounds, that are mild, are heard diffusely. 11:45 Abdomen/GI: Exam negative for discomfort, distension, guarding, Inspection: abdomen cp appears normal. 11:45 Neuro: Orientation: to person, place \\T\\ time. Mentation: is normal. cp Vital Signs: 11:28 BP 122 / 80; Pulse 88; Resp 16; Temp 98.4(O); Pulse Ox 98% on R/A; Weight 65.77 kg; ab2 Height 5 ft. 8 in. (172.72 cm); Pain 3/10; 13:20 BP 117 / 81; Pulse 81; Resp 16; Pulse Ox 99% on R/A; ab2 11:28 Body Mass Index 22.05 (65.77 kg, 172.72 cm) ab2 MDM: 11:30 Patient medically screened. cp 12:00 Differential Diagnosis: Influenza Viral Syndrome Pneumonia Other COVID-19. cp 13:20 Data reviewed: vital signs, nurses notes, lab test result(s), radiologic studies, plain cp films. 13:20 Test interpretation: by ED physician or midlevel provider: plain radiologic studies. cp Counseling: I had a detailed discussion with the patient and/or guardian regarding: the historical points, exam findings, and any diagnostic results supporting the discharge/admit diagnosis, lab results, radiology results, to return to the emergency department if symptoms worsen or persist or if there are any questions or concerns that arise at home. Response to treatment: the patient's symptoms have mildly improved after treatment, and as a result, I will discharge patient. ED course: VSS. Patient appears non-toxic and no signs of respiratory distress. Will discharge to home for continued monitoring. 05/02 11:30 Order name: COVID-19/FLU A+B (Document "Date of Onset" if Symptomatic); Complete Time: cp 13:13 05/02 12:24 Order name: Urine Dipstick-Ancillary; Complete Time: 13:13 EDMS 05/02 11:30 Order name: XRAY Chest (1 view); Complete Time: 13:13 cp 05/02 12:24 Order name: Urine --Ancillary (enter results) em1 05/02 11:30 Order name: Urine Dipstick-Ancillary (obtain specimen); Complete Time: 12:23 cp 05/02 11:30 Order name: Urine Test (obtain specimen); Complete Time: 12:23 cp Administered Medications: 13:20 Drug: Ibuprofen 800 mg Route: PO; ab2 13:20 Drug: Tamiflu (oseltamivir) 75 mg Route: PO; ab2 Disposition: 13:55 Co-signature as Attending Physician, Carlene Pabon MD I agree with the assessment and sp3 plan of care. Disposition Summary: 05/02/21 13:20 Discharge Ordered Location: Home cp Problem: new cp Symptoms: have improved cp Condition: Stable cp Diagnosis - Influenza due to other identified influenza virus with pneumonia cp Followup: cp - With: Private Physician - When: 2 - 3 days - Reason: Worsening of condition Discharge Instructions: - Discharge Summary Sheet cp - Influenza, Adult cp Forms: - Medication Reconciliation Form cp - Thank You Letter cp - Antibiotic Education cp - Prescription Opioid Use cp Prescriptions: - Bromfed DM 2-30-10 mg/5 mL Oral syrup - take 10 milliliter by ORAL route every 6 hours; 200 milliliter; Refills: 0, cp Product Selection Permitted - Ibuprofen 800 mg Oral Tablet - take 1 tablet by ORAL route every 8 hours As needed take with food; 30 tablet; cp Refills: 0, Product Selection Permitted - Zithromax Z-Markus 250 mg Oral Tablet - take 1 tablet by ORAL route as directed for 5 days Day 1 - take two (2) tablets cp one time. Day 2, 3, 4 , 5 take one (1) tablet once daily.; 6 tablet; Refills: 0, Product Selection Permitted - Tamiflu 75 mg Oral Capsule - take 1 tablet by ORAL route every 12 hours for 5 days; 10 tablet; Refills: 0, cp Product Selection Permitted Signatures: Dispatcher [facility] Olegario Todd PA PA cp Carlene Pabon MD MD sp3 Dylan Barnett ab2
[2021-05-02 13:38] LABS: Urine Specific Gravity/Preg 1.015 (1.005-1.030)
[2021-05-02 13:41] VITALS: TEMP 98.4
[2021-05-02 13:42] VITALS: BP 117/81; O2SAT 99
[2021-05-02] MEDS ORDERED: INFLUENZA VACCINE (for 6+ mo) 0.5 ML DOSE IMVAC ONE (20:00)
== END 2021-05-02 13:35 | disposition home or self-care (01) ==
LOC: ER 11:25
DX: J10.00 Influenza due to other identified influenza virus with unspecified type of pneumonia (principal); Z20.822 Contact with and (suspected) exposure to COVID-19
CPT/HCPCS: 0240U; 71045; 81003; 81025; 99284

== ENCOUNTER 2021-08-08 13:21 | Emergency (ER) | payer SELFPAY ==
--- OUTSIDE RECORDS SUMMARY | 2021-08-08 13:24 | XMS REPORT | Continuity of Care Document ---
:1995 Author Organization [facility] t Address [address] [place] [address] Care Team Providers Name Role Phone Unavailable Unavailable Unavailable Payers Payer Name Policy Type Policy Number Effective Date Expiration Date S ource Problems This patient has no known problems. Allergies, Adverse Reactions, Alerts Allergy Allergy Status Severity Reaction(s) Onset Inactive Treating Comm ents Source Name Type Date Date Clinician No Known DA Active U 2019-0 [facility]ergie 08-16 [facility] [address] [facility] [place], [place] No Known DA Active U 0 [facility]ie 08[facility]16 [facility] [place] [place] Medications This patient has no known medications. Procedures This patient has no known procedures. Encounters Start End Encounter Admission Attending Care Care Encounter Source Date/Time Date/Time Type Type Clinicians Facility Department ID 2019-08-17 Inpatient [facility] [id number] [facility] 13:20:00 [id number] [facility] Results Test Description Test Time Test Comments Results Result Comments Source - [facility] 2019-08-17 Patient Name: 15:38:00 IVIS WADE Unit No: [id number] EXAMS: CPT CODE: [id number] [facility] [id number] EXAM: Right upper quadrant ultrasound. EXAM DATE: [...] (1538) t.SDR.CER Orig Print D/T: S: 08/17/2019 (1541) [facility] NAME: IVIS WADE Radiology Department PHYS: Matthew Leir klever [address] : 1995 AGE: 24 SEX: F [place] [address] LOC: [place] PHONE #: [phone] EXAM DATE: 08/17/2019 STATUS: REG ER FAX #: [phone] RAD NO: Page 1 Signed Report Patient Name: IVIS WADE Unit No: [id number] EXAMS: CPT CODE: [id number] ABDOMEN LTD [id number] <Continued> [facility] NAME: IVIS WADE Radiology Department PHYS: Mauri Le [address] : 1995 AGE: 24 SEX: F [place] [address] LOC: [place] PHONE #: [phone] EXAM DATE: 08/17/2019 STATUS: REG ER FAX #: [phone] RAD NO: Page 2 Signed Report COMPREHENSIVE [...] code = ALKP) 79 units/L 46-116 N [id number] 14:13:00 Test Item Value Reference Range Interpretation Comments LIPASE (test code = LIP) 57 units/L 73-393 L UA RFLX MICR CULT IF [id number] 13:55:00 Test Item Value Reference Range Interpretation [...] SEEN Indication for culture: Suprapubic PainUR HCG [id number] 13:55:00 Test Item Value Reference Range Interpretation [...] Indication for culture: Suprapubic PainDRUGS OF ABUSE [id number] 13:54:00 Test Item Value Reference Range Interpretation Comments UR COCAINE (test code = NEGATIVE NEGATIVE DETE CTION CUT OFF: COCAU) 150 ng/mL UR CANNABINOIDS (test POSITIVE NEGATIVE A RESULT S CALLED TO code = CANU) ANAI/ER.READ BACK & CONFIRMED? Y. BY VIMAL 0923. DETECTION CUT OFF: 50 ng/mL UR AMPHETAMINE [...] ng/m L UA RFLX MICR CULT IF [id number] 13:53:00 Test Item Value Reference Range Interpretation [...] RARE-FEW Indication for culture: Suprapubic PainUR HCG [id number] 13:53:00 Test Item Value Reference Range Interpretation [...] tested. Indication for culture: Suprapubic PainCBC W/AUTO [id number] 13:52:00 Test Item Value Reference Range Interpretation [...]
[2021-08-08 14:26] LABS: Absolute Lymphocytes (CBC) 0.8 K/uL (0.7-4.9); Hematocrit 41.8 % (36.0-45.0); Lymphocytes % 15.2 % (15.3-44.8); RBC Red Blood Cell Count 4.81 M/uL (3.86-4.86)
[2021-08-08] MEDS ORDERED: MORPHINE 4 MG/ML SYR ONE (14:30)
[2021-08-08] MEDS ORDERED: ONDANSETRON 4 MG/2 ML VIAL ONE (14:30)
[2021-08-08] MEDS ORDERED: NA CHLORIDE 0.9% 1,000 ML ONE (14:30)
[2021-08-08 14:41] LABS: Potassium 3.2 mmol/L (3.5-5.1)
[2021-08-08 15:15] LABS: Urine Blood Trace-lysed (Negative); Urine Glucose Negative (Negative); Urine Protein Negative (Negative); Urine Specific Gravity 1.015 (1.005-1.030)
[2021-08-08 15:31] LABS: Blood Morphology Comment NOT SEEN (NOT SEEN); Platelet Estimate ADEQ
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
[2021-08-08 17:11] VITALS: TEMP 98.9; O2SAT 100
[2021-08-08 17:13] VITALS: BP 128/86
== END 2021-08-08 17:07 | disposition home or self-care (01) ==
LOC: ER 13:21
DX: S22.41XA Multiple fractures of ribs, right side, initial encounter for closed fracture (principal); V49.59XA Passenger injured in collision with other motor vehicles in traffic accident, initial encounter
CPT/HCPCS: 36415; 70450; 71260; 72125; 74177; 80048; 81003; 85025; 96361; 96374; 96375; 99284; J2405; J7030; Q9967

== ENCOUNTER 2022-09-26 10:16 | Emergency (ER) | payer OTHER, SELFPAY ==
--- OUTSIDE RECORDS SUMMARY | 2022-09-26 10:21 | XMS REPORT | Continuity of Care Document ---
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 Clinicians Facility Department ID 2019-08-17 Inpatient [facility] [id number] [facility] 13:20:00 30 [facility] 2023-02-20 2023-02-20 Outpatient R DOUGLAS [facility] [id number] Univers 13:00:00 13:00:00 NORMA parsons [facility] 2022-08-22 2022-08-22 Outpatient R FAYE [facility] [id number] Univers 16:00:00 16:00:00 SAMY magaña [facility] 2022-07-30 2022-07-30 Outpatient R ELYSE SERRANO [facility] [id number] Univers 16:30:00 17:41:36 ELYSE SERRANO [facility] 2022-07-30 2022-07-30 [facility] 1.2.840.114 [id number] Univers 16:30:00 17:41:36 Visit Elyse [employer]ENT[employer] 350.1.13.10 it [facility] 4.2.7.2.686 Nico as MATERNAL [id number] [facility] & CHILD [address] [place] [address] 2022-07-29 2022-07-29 Telephone Douglas [facility] 1.2.840.114 [id number] Univers 00:00:00 00:00:00 Norma Marquez [employer] REPRESENTATIVE 350.1.13.10 ity [facility] 4.2.7.2.686 Nico as MATERNAL [id number] Med ical & CHILD [address] [place] [address] 2022-02-20 2022-02-20 Outpatient R DOUGLAS [facility] [id number] Univers 13:00:00 14:41:13 NORMA ity o f [facility] 2022-02-20 2022-02-20 Office Douglas [facility] 1.2.448.659 [id number] Univers 13:00:00 14:41:13 Visit Norma Marquez [employer] REPRESENTATIVE 350.1.13.10 ity of [facility] 4.2.7.2.686 Nico as MATERNAL [id number] Med ical & CHILD [address] [place] [address] 2022-02-20 2022-02-20 Orders Doctor RAHEL 1.2.840.114 [id number] Univers 00:00:00 00:00:00 Only Unassigned, BIBI 350.1.13.10 ity of [place] [facility] 4.2.7.2.686 Nico as [phone] [address] 2022-01-13 2022-01-13 Emergency X SINDHU, K [facility] ERT [id number] Univers 20:47:00 22:09:00 ity of [facility] 2022-01-13 2022-01-13 Emergency Luís Manley [facility] 1.2.840.114 [id number] Univers 20:47:00 22:09:00 Elicia TAM 350.1.13.10 i ty [facility] 4.2.7.2.686 [facility] [id number] [address] 2021-08-14 2021-08-15 Emergency X FORREST [facility] ERT [id number] Univers 21:38:00 02:10:00 PRABHAKAR ity [facility] 2021-08-14 2021-08-15 Emergency [facility] 1.2.673.238 [id number] Univers 21:38:00 02:10:00 Prabhakar TAM 350.1.13.10 ity of [place] 4.2.7.2.686 [facility] [id number] [address] 2021-08-08 2021-08-08 Emergency [facility] E[facility] [id number] Univers 12:24:00 12:59:00 PADMA ity [facility] 2021-08-08 2021-08-08 Emergency [facility] 1.2.840.114 [id number] Univers 12:24:00 12:59:00 Padma David TAM 350.1.13.10 it[place] [id number] [facility] 084 Branch 2021-08-08 2021-08-08 Transition ANITHA Hunter 1.2.840.114 [id number] Univers 00:00:00 00:00:00 of Care [place] HERRON 350.1.13.10 it y of [place]2.[place] [id number] [facility] 403 Branch 2021-08-03 2021-08-07 [facility] Prabhakar Gupta 1.2.840. 114 [id number] Univers 00:30:00 17:00:00 Encounter Estefani Leslie 350.1.13.10 ity [facility] 4.2.7.2.686 Nico [id number] [facility] 087 Branch 2021-08-03 2021-08-07 Inpatient X ESTEFANI LESLIE [facility] STR [id number] Univers 00:30:00 17:00:00 ity of [facility] 2021-08-03 2021-08-03 Outpatient R FORREST [facility] STR [id number] Univers 00:29:16 00:29:16 PRABHAKAR ity [facility] 2021-05-02 2021-05-02 Emergency [facility] ERT [id number] Univers 16:54:00 18:55:00 ANN magaña [facility] 2021-05-02 2021-05-02 Emergency [facility] 1.2.617.879 [id number] Univers 16:54:00 18:55:00 Ann TAM 350.1.13.10 ity of [place] [id number] [facility] 084 Branch 2020-12-03 2020-12-03 Office [facility] 1.2.993.620 [id number] Univers 12:54:13 13:56:14 Visit Norma C [employer] REPRESENTATIVE 350.1.13.10 ity of [facility] 4.2.7.2.686 Nico as MATERNAL [phone] [facility] ical & CHILD [address] [place] [address] 2020-12-03 2020-12-03 Outpatient R DOUGLAS [facility] [id number] Univers 13:15:00 13:15:00 NORMA ity o f [facility] 2020-12-03 2020-12-03 Orders Doctor RAHEL 1.2.840.114 [id number] Univers 00:00:00 00:00:00 Only Unassigned, BIBI 350.1.13.10 ity of [place] [facility] 4.2.7.2.686 Nico as [id number] [address] 2020-12-03 2020-12-03 Orders Doctor RAHEL 1.2.840.114 [id number] Univers 00:00:00 00:00:00 Only Unassigned, BIBI 350.1.13.10 ity of [place] [facility] 4.2.7.2.686 Nico as [id number] [address] 2020-11-19 2020-11-19 Office [facility] 1.2.340.240 [id number] Univers 08:28:15 09:04:26 Visit Norma C [employer] REPRESENTATIVE 350.1.13.10 ity of REG[facility] 4.2.7.2.686 Nico as MATERNAL [id number] [facility] & CHILD [address] [place] [address] 2020-11-19 2020-11-19 Office [facility] 1.2.988.115 [id number] Univers 08:28:15 09:04:26 Visit Norma C [employer] REPRESENTATIVE 350.1.13.10 ity of REGION[facility] 4.2.7.2.686 Nico as MATERNAL [id number] [facility] CHILD [address] [place] [address] 2020-11-19 2020-11-19 Outpatient R DOUGLAS [facility] [id number] Univers 08:30:00 08:30:00 NORMA jenseny o f [facility] 2020-11-19 2020-11-19 Outpatient R [facility] [id number] Univers 08:30:00 08:30:00 NORMA ity o f [facility] 2020-11-19 2020-11-19 Orders Doctor MCGINNIS 1.2.840.114 [id number] Univers 00:00:00 00:00:00 Only Unassigned, BIBI 350.1.13.10 ity of [place] [facility] 4.2.7.2.686 Nico as [id number] [address] 2020-11-19 2020-11-19 Orders Doctor RAHEL 1.2.840.114 [id number] Univers 00:00:00 00:00:00 Only Unassigned, BIBI 350.1.13.10 ity of [place] [facility] 4.2.7.2.686 Nico as [id number] [address] 2020-11-08 2020-11-08 Outpatient R [facility] [id number] Univers 15:30:00 15:30:00 ity of [facility] 2020-11-07 2020-11-07 Outpatient R [facility] [id number] Univers 10:00:00 10:00:00 NORMA jenseny o f [facility] 2020-11-07 2020-11-07 Telephone [facility] 1.2.840.114 [id number] Univers 00:00:00 00:00:00 Norma C [employer] REPRESENTATIVE 350.1.13.10 ity of [facility] 4.2.7.2.686 Nico as MATERNAL [id number] [facility] & CHILD [address] [place] [address] 2020-10-30 2020-10-30 Telephone [facility] 1.2.840.114 [id number] Univers 00:00:00 00:00:00 Nomra C [employer] REPRESENTATIVE 350.1.13.10 ity of [facility] 4.2.7.2.686 Nico as MATERNAL [id number] [facility] ical & CHILD [address] [place] [address] 2020-08-21 2020-08-21 Outpatient R DOUGLAS [facility] [id number] Univers 16:00:00 16:00:00 NORMA ernst jaqueline [facility] 2020-08-16 2020-08-16 Nurse Visit, Lorichnicholas Nurse [facility] 1.2 .840.114 [id number] Univers 14:46:36 15:01:36 Visit Norma Cole [employer] REPRESENTATIVE 350.1.13. 10 [facility] 4.2.7.2.686 Nico as MATERNAL [id number] [facility] ical & CHILD [address] [place] [address] 2020-08-16 2020-08-16 Outpatient R PAULINEALPA [facility] [id number] Univers 15:00:00 15:00:00 NORMA gómez klever parsons [facility] 2020-08-16 2020-08-16 Outpatient R [facility] [id number] Univers 14:30:00 14:30:00 [facility] 2020-05-24 2020-05-24 Nurse Visit, [facility] 1.2.840.114 [id number] 14:58:09 15:06:57 Visit Romulo-Rmchp [employer] REPRESENTATIVE 350.1.13.10 Nurse [facility] 4.2.7.2.686 MATERNAL [id number] & [address] 2020-05-24 2020-05-24 Nurse Visit, Rizwana Nurse [facility] 1.2 .840.114 [id number] Univers 14:58:09 15:06:57 Visit Norma Cole [employer] REPRESENTATIVE 350.1.13. 10 [facility] 4.2.7.2.686 Nico as MATERNAL [phone] [facility] & CHILD [address] [place] [address] 2020-05-24 2020-05-24 Outpatient R [facility] [id number] Univers 15:00:00 15:00:00 [facility] 2020-03-01 2020-03-01 Nurse Visit, [facility] 1.2.840.114 [id number] 15:03:57 15:34:52 Visit Ang-Rmchp [employer] REPRESENTATIVE 350.1.13.10 Nurse [facility] 4.2.7.2.686 MATERNAL [id number] & CHILD [address] [facility] 2020-03-01 2020-03-01 Nurse Visit, Romulo-Rmchp Nurse [facility] 1.2 .840.114 [id number] Univers 15:03:57 15:34:52 Visit Norma Cole [employer] REPRESENTATIVE 350.1.13. 10 [facility] 4.2.7.2.686 Nico as MATERNAL [id number] Med ical & CHILD [address] [place] [address] 2020-03-01 2020-03-01 Outpatient R [facility] [id number] Univers 15:00:00 15:00:00 ity [facility] 2020-03-01 2020-03-01 Outpatient R DOUGLAS [facility] [id number] Univers 15:00:00 15:00:00 NORMA magaña o [facility] 2020-02-22 2020-02-22 Outpatient R [facility] [id number] Univers 13:30:00 13:30:00 ity [facility] 2019-11-30 2019-11-30 Office Douglas, [facility] 1.2.140.341 [id number] 13:20:31 14:15:04 Visit Norma Marquez [employer] REPRESENTATIVE 350.1.13.10 [facility] 4.2.7.2.686 MATERNAL [id number] & CHILD [address] [facility] 2019-11-30 2019-11-30 Office Douglas, [facility] 1.2.399.300 [id number] Univers 13:20:31 14:15:04 Visit Norma C [employer] REPRESENTATIVE 350.1.13.10 ity of [facility] 4.2.7.2.686 Nico as MATERNAL [id number] Med ical & CHILD [address] [place] [address] 2019-11-30 2019-11-30 Outpatient R DOUGLAS [facility] [id number] Univers 13:30:00 13:30:00 NORMA magaña o f [facility] 2019-11-23 2019-11-23 Office Douglas, [facility] 1.2.544.660 [id number] Univers 13:50:16 15:50:06 Visit Norma C [employer] REPRESENTATIVE 350.1.13.10 ity of [facility] 4.2.7.2.686 Nico as MATERNAL [id number] [facility] ical & CHILD [address] [place] [address] 2019-11-23 2019-11-23 Outpatient R [facility] [id number] Univers 13:45:00 13:45:00 NORMA magaña o f [facility] 2019-11-23 2019-11-23 Orders Doctor RAHEL 1.2.840.114 [id number] Univers 00:00:00 00:00:00 Only Unassigned, BIBI 350.1.13.10 ity of [place] [facility] 4.2.7.2.686 Nico as [id number] [address] 2019-11-22 2019-11-22 Outpatient R [facility] [id number] Univers 15:45:00 15:45:00 NORMA magaña o f [facility] 2019-11-21 2019-11-21 [facility] 1.2.840.114 [id number] Univers 00:00:00 00:00:00 Norma Marquez [employer] REPRESENTATIVE 350.1.13.10 ity of [facility] 4.2.7.2.686 Nico as MATERNAL [id number] [facility] & CHILD [address] [place] [address] Results Test Description Test Time Test Comments Results Result Comments Source HIV 1/2 AG-AB WITH REFLEX 2022-02-21 09:03:00 Test Item Value Reference Range Interpretation Comme nts HIV Semi-quantitative (test code = Negative Negative 00390-4) CYNTHIA (test code = CYNTHIA) Non-reactive for HIV-1 antigen and HIV-1/HIV-2 antibodies. ?No laboratory evidence of HIV infection. ?Repeat in 2-4 weeks if acute HIV infection is suspected. [facility] WITH [id number] 09:03:00 Test Item Value Reference Range Interpretation Comments HIV Negative Negative Semi-quantitative (test code = 33836-8) CYNTHIA (test code = Non-reactive for HIV-1 CYNTHIA) antigen and HIV-1/HIV-2 antibodies. ?No laboratory evidence of HIV infection. ?Repeat in 2-4 weeks if acute HIV infection is suspected. [facility] [id number] 04:30:00 Test Item Value Reference Range Interpretation Comments POCT PREG (test code = 1605) Negative On board controls acceptable with Positive C Line (test code = 3574) POCT PREG LOT # (test code = 3575) [id number] POCT PREG TEST DATE (test 01/20/23 code = 3576) Lab Interpretation (test code = Normal 68971-8) [facility]. METABOLIC PANEL (54925)2021-08-15 04:03:36 Test Item Value Reference Range Interpretation Comments NA (test code = 139 mmol/L 135-145 9771214486) K (test code = 3.9 mmol/L 3.5-5.0 3471418854) CL (test code = 102 mmol/L 98-108 4333255184) CO2 TOTAL (test code = 28 mmol/L -31 1277213689) AGAP (test code = 2-16 0210045415) BUN (test code = 8 mg/dL 7-23 7131772462) GLUCOSE (test code = 113 mg/dL 70-110 H 6296666882) CREATININE (test code = 0.50 mg/dL 0.50-1.04 1803679377) TOTAL BILI (test code = 0.5 mg/dL 0.1-1.2 0856972123) CALCIUM (test code = 9.0 mg/dL 8.6-10.6 7468332127) T PROTEIN (test code = 7.4 g/dL 6.3-8.2 5568756247) ALBUMIN (test code = 4.4 g/dL 3.5-5.0 8777115816) ALK PHOS (test code = 103 U/L 34-122 3480836053) ALTv (test code = 28 U/L 5-35 1742-6) AST(SGOT) (test code = 40 U/L 13-40 4497063316) eGFR (test code = mL/min/1.73m2 8539535620) CYNTHIA (test code = CYNTHIA) Association of Glomerular Filtration Rate (GFR) and Staging of Kidney Disease* + --+ --+ ------+| GFR (mL/min/1.73 m2) ?| With Kidney Damage ?| ?Without Kidney Damage+ --------+ --------+ +| ?>90 ?| ?Stage one ?| ? Normal ?+ ---+ ---+ -------+| ?60-89 ?| ?Stage two ?| ? Decreased GFR ? + --+ --+ ------+| ?30-59 ?| ?Stage three ?| ? Stage three ? + --+ --+ ------+| ?15-29 ?| ?Stage four ? | ? Stage four ?+ ---+ ---+ -------+| ?<15 (or dialysis) ? ?| ?Stage five ? | ? Stage five ?+ ---+ ---+ -------+ *Each stage assumes the associated GFR level has been in effect for at least three months. ?Stages 1 to 5, with or without kidney disease, indicate chronic kidney disease. Notes: Determination of stages one and two (with eGFR >59mL/min/1.73 m2) requires estimation of kidney damage for at least three months as defined by structural or functional abnormalities of the kidney, manifested by either:Pathological abnormalities or Markers of kidney damage (including abnormalities in the composition of the blood or urine or abnormalities in imaging tests). Lab Interpretation Abnormal (test code = 85179-0) [facility] 04:02:56 Test Item Value Reference Range Interpretation Comments LIPASE (test code = 4911941192) 48 U/L 0-220 Lab Interpretation (test code = Normal 27196-7) [facility]th[facility] Time (PTT) / [id number] 03:56:57 Test Item Value Reference Range Interpretation Comments PROTIME PATIENT (test See_Comment [Auto mated message] code = 5964-2) The system [employer] generated this result transmitted ref erence range: 12.0 - 1 4.7 Seconds. The re ference range was not u sed to interpret this result as normal/abnor mal. INR (test code = 6301-6) Nor mal INR <1.1; Warfarin Therap eutic range 2.0 to 3. 0 or 2.5 to 3.5, dep ending upon the indica tions. Lab Interpretation (test Normal code = 27084-6) [facility] WITH [id number] 03:52:36 Test Item Value Reference Range Interpretation Comments WBC (test code = See_Comment [Automated 6690-2) message] The sy stem which generated this result transmitted reference range : 4.30 - 11.10 10*3/?L. The reference range was not used to interpret this result as normal/abnormal . RBC (test code = See_Comment [Automated 789-8) message] The sy stem which generated this result transmitted reference range : 3.93 - 5.25 10*6/?L. The reference range was not used to interpret this result as normal/abnormal . HGB (test code = 13.2 g/dL 11.6-15.0 718-7) HCT (test code = 38.7 % 35.7-45.2 4544-3) MCV (test code = 88.0 fL 80.6-95.5 787-2) MCH (test code = 30.0 pg 25.9-32.8 785-6) MCHC (test code = 34.1 g/dL 31.6-35.1 786-4) RDW-SD (test code = 38.3 fL 39.0-49.9 L 46397-6) RDW-CV (test code = 11.9 % 12.0-15.5 L 788-0) PLT (test code = See_Comment [Automated 777-3) message] The sy stem which generated this result transmitted reference range : 166 - 358 10*3/ ?L. The reference r oh was not used to interpret this result as normal/abnormal . MPV (test code = 9.4 fL 9.5-12.9 L 84082-2) NRBC/100 WBC (test See_Comment [Automat ed code = 8273441729) message] The system which generated this result transmitted reference range : 0.0 - 10.0 /100 WBCs. The refer ence range was not u sed to interpret th is result as normal/abnormal . NRBC x10^3 (test code <0.01 See_Comment [Auto mated = 5849129686) message] The s ystem which generated this result transmitted reference range : 10*3/?L. The reference range was not used to interpret this result as normal/abnormal . GRAN MAT (NEUT) % 65.9 % (test code = 770-8) IMM GRAN % (test code 0.30 % = 3224417025) LYMPH % (test code = 21.9 % 736-9) MONO % (test code = 8.2 % 5905-5) EOS % (test code = 2.9 % 713-8) BASO % (test code = 0.8 % 706-2) GRAN MAT x10^3(ANC) 4.02 10*3/uL 1.88-7.09 (test code = 4290742251) IMM GRAN x10^3 (test <0.03 0.00-0.06 code = 6290266887) LYMPH x10^3 (test code 1.34 10*3/uL 1.32-3.29 = 731-0) MONO x10^3 (test code 0.50 10*3/uL 0.33-0.92 = 742-7) EOS x10^3 (test code = 0.18 10*3/uL 0.03-0.39 711-2) BASO x10^3 (test code 0.05 10*3/uL 0.01-0.07 = 704-7) Lab Interpretation Abnormal (test code = 78206-2) [facility] ABDOMEN [id number] 15:38:00 Patient Name: IVIS WADE Unit No: [id number] EXAMS: CPT CODE: [id number] ABDOMEN LTD 70968 EXAM: Right upper quadrant ultrasound. EXAM DATE: [...] Emily Abreu RDMS Probe: Trnscrbd D/ (1538) Redd.CER Orig Print D/T: S: 08/17/2019 (1541) [facility] NAME: IVIS WADE Radiology Department PHYS: Eduardo Le [address] : 1995 AGE: 24 SEX: F [place] [address] LOC: ElenaERS PHONE #: [phone] EXAM DATE: 08/17/2019 STATUS: REG ER FAX #: [phone] RAD NO: Page 1 Signed Report Patient Name: IVIS WADE UnitNo: [id number] EXAMS: CPT CODE: [id number] ABDOMEN LTD 14852 (Continued) [facility] NAME: IVIS WADE Radiology Department PHYS: Eduardo Le [address] : 1995 AGE: 24 SEX: F [place], [place] [address] LOC: ElenaERS PHONE #: [phone] EXAM DATE: 08/17/2019 STATUS: REG ER FAX #: [phone] RAD NO: Page 2 Signed ReportCOMPREHENSIVE METABOLIC PANEL 2019-08-17 14:13:00 Test Item Value [...] 79 units/L 46-116 N code = ALKP) [id number] 14:13:00 Test Item Value Reference Range Interpretation Comments LIPASE (test code = LIP) 57 units/L 73-393 L UA RFLX MICR CULT IF [id number] 13:55:00 Test Item Value Reference Range Interpretation [...] SEEN Indication for culture: Suprapubic PainUR HCG [id number] 13:55:00 Test Item Value Reference Range Interpretation [...] Indication for culture: Suprapubic PainDRUGS OF ABUSE [id number] 13:54:00 Test Item Value Reference Range Interpretation Comments UR COCAINE (test code = NEGATIVE NEGATIVE DETE CTION CUT OFF: COCAU) 150 ng/mL UR CANNABINOIDS (test POSITIVE NEGATIVE A RESULT S CALLED TO code = CANU) ANAI/ER.READ BACK & CONFIRMED? Y. BY VIMAL 8223. DETECTION CUT OFF: 50 ng/mL UR AMPHETAMINE [...] ng/m L UA RFLX MICR CULT IF [id number] 13:53:00 Test Item Value Reference Range Interpretation [...] RARE-FEW Indication for culture: Suprapubic PainUR HCG [id number] 13:53:00 Test Item Value Reference Range Interpretation [...] tested. Indication for culture: Suprapubic PainCBC W/AUTO [id number] 13:52:00 Test Item Value Reference Range Interpretation [...] REQUIRED (test NORMAL NORMAL code = PLTMR) Notes Date/Time Note Provider Source 2019-08-17 13:47:00-00:00 [facility] ([facility]) EMERGENCY PROVIDER REPORT REPORT#:[id number] REPORT STATUS: Signed DATE:08/17/19 TIME: 134 PATIENT: IVIS WADE UNIT #: [id number] ROOM/BED: AGE: 24 SEX: F PCP PHYS: No Primary or Family P hysician SERVICE AUTHOR: Matthew Jaramillo MD * ALL edits or amendments must be made on the [employer] document * HPI-General Illness General Initial Greet Date/Time 08/17/19 1322 Presentation Chief Complaint Abdominal pain Context Additional Context 35 years old patient no past medical history aft er eating yesterday started having intense epigastric pain followed by multiple episodes of emesis, denies radiation of the pain, pain is 8 out of 10 when present, denies any vaginal bleeding fever diarrhea leakage of fluid contact with sick people or any other complaints. Review of Systems ROS Statements All systems rev neg except as marked. Free Text ROS Notes Free Text ROS Notes CONSTITUTIONAL: Normal; negative for fev er, weight change, fatigue, or aching. HEENT: Eyes normal; negative for, irritation, or visual field defects. Ears normal; Negative for pain . Nose normal; Negative for runny nose, sinus problems , or nosebleeds. Mouth normal; Negative for dent al problems,. Throat normal; Negative for hoarseness, difficulty swallowing, or sore throat. CARDIOVASCULAR: Normal; Negative for chest pain or, high blood pressure, orthopnea, PULMONARY: Normal; Negative for cough, sputum, shortness of breath or wheezing, SKIN: Normal; Negative for rashes. MUSCULOSKELETAL: Normal; Negative for back pain, joint pain. NEUROLOGIC: Normal; Negative for blackouts, head aches, seizures or dizziness. PSYCHIATRIC: Normal; Negative for anxiety, depre ssion, or phobias. ENDOCRINE: Normal; Negative for diabetes, thyroid.HEMATOLOGIC/LYMPHATIC: Normal; Negative for anemia, swollen glands, or blood di sorders. IMMUNOLOGIC: Negative; Negative for steroids, ch emotherapy, or cancer. VASCULAR: Normal; Negative for varicose veins, b lood clots, or leg ulcers. Past Medical History - Adult Stated Complaint VOMITING NON STOP SINCE YESTERD AY,SEVERE ABD PAIN Allergies Coded Allergies: No Known Allergies (08/17/19) Home Medications Reported Medications No Known Home Medications Review of Nursing Notes Rev avail, and agree Physical Exam Vital Signs Vital Signs First Documented: Result Date Time Pulse Ox 100 08/16 1336 B/P 145/73 08/16 1336 B/P Mean 97 08/16 1336 O2 Delivery Room air 08/16 133 Temp 36.7 08/16 1336 Pulse 90 08/16 1336 Resp 16 08/17 1335 Last Documented: Result Date Time Pulse Ox 100 08/16 1336 B/P 145/73 08/16 1336 B/P Mean 97 08/16 1336 O2 Delivery Room air 08/16 133 Temp 36.7 08/16 1336 Pulse 90 08/16 1336 Resp 16 08/17 1335 Review of Vital Signs Reviewed, Vital signs norm al Basic Physical Exam Basic PE GEN: Well appearing /NAD, EYES: PERRL, conj clear, ENT: Membranes moist, RESP: No resp distress, CV: Reg rate rhy thm, SKIN: No rashes, warm/dry, NEURO: alert oriented, NEURO: gross movement NL Physical Exam Abdomen/GI Tenderness/Guarding/Rebound Tender RUQ, Tender epigastric. Interpretation Diagnostics Lab Results Interpretation Results Laboratory Tests 08/17/19 1330: [Embedded Image Not Available] Laboratory Tests: 08/16 1329 Chemistry Sodium (135 - 145 mEq/L) 141 Potassium (3.5 - 5.0 mEq/L) 3.9 Chloride (100 - 115 mEq/L) 101 Carbon Dioxide (22 - 31 mEq/L) 30 Anion Gap (10 - 20) 14.30 BUN (7 - 18 mg/dL) 9 Creatinine (0.5 - 1.0 mg/dL) 0.9 Glomerular Filtr Rate (>60 ml/min) 78 Glucose (65 - 110 mg/dL) 95 Calcium (8.4 - 10.2 mg/dL) 9.0 Total Bilirubin (0.2 - 1.0 mg/dL) 0.6 AST (15 - 37 units/L) 24 ALT (12 - 78 units/L) 17 Total Alk Phosphatase (46 - 116 units/L) 79 Total Protein (6.3 - 8.2 gm/dL) 8.9 H Albumin (3.4 - 4.8 gm/dL) 4.7 Lipase (73 - 393 units/L) 57 L Hematology WBC (6.6 - 12.1 K/mm3) 7.2 RBC (3.45 - 5.01 M/mm3) 4.96 Hgb (10.7 - 13.9 g/dL) 15.3 H Hct (32.1 - 42.1 %) 45.4 H MCV (84.1 - 94.8 fL) 92 MCH (27 - 35 pg) 30.8 MCHC (32.2 - 34.1 gm/dL) 33.7 RDW (12.4 - 16.5 %) 12.0 L Plt Count (133 - 385 K/mm3) 263 MPV (9.1 - 12.7 fl) 11.0 Neut % (Auto) (56.5 - 79.4 %) 72.5 Lymph % (Auto) (14.3 - 34.3 %) 19.5 [place] % (Auto) (5.1 - 10.4 %) 6.5 Eos % (Auto) (0.1 - 3.0 %) 0.6 Baso % (Auto) (0.1 - 1.0 %) 0.8 Neut # (Auto) (K/mm3) 5.3 Lymph # (Auto) (K/mm3) 1.4 [place] # (Auto) (K/mm3) 0.5 Eos # (Auto) (K/mm3) 0.04 Baso # (Auto) (K/mm3) 0.1 Toxicology Urine Opiates Screen (NEGATIVE) NEGATIVE Ur Barbiturates, Qual (NEGATIVE) NEGATIVE Ur Phencyclidine Scrn (NEGATIVE) NEGATIVE Ur Amphetamines Screen (NEGATIVE) NEGATIVE U Benzodiazepines Scrn (NEGATIVE) NEGATIVE Urine Cocaine Screen (NEGATIVE) NEGATIVE Urine Cannabinoids (NEGATIVE) POSITIVE H Urines Urine Color (YELLOW) YELLOW Urine Appearance (CLEAR) Slightly-Cloudy Urine pH (5 - 9) 8.0 Ur Specific [place] (1.001 - 1.035) 1.025 Urine Protein (NEG) 1+ H Urine Glucose (UA) (NEG) NEGATIVE Urine Ketones (NEG) NEGATIVE Urine Blood (NEG) NEG Urine Nitrite (NEG) NEG Urine Bilirubin (NEG) NEGATIVE Urine Urobilinogen (NEG mg/dL) NEGATIVE Ur Leukocyte Esterase (NEG) TRACE H Urine RBC (NONE SEEN #/hpf) 0-2 Urine WBC (NONE SEEN #/hpf) 6-10 H Ur Epithelial Cells (RARE - FEW #/HPF) MODERATE H Urine Bacteria (RARE - FEW /HPF) FEW Urine Mucus (NONE SEEN) 2+ Urine HCG, Qual NEGATIVE Microbiology: Date/Time Procedure - Status Source Growth 08/16 135 Urine Culture - RECD URINE Recent Impressions: ULTRASOUND - US ABDOMEN LTD 08/16 1505 Report Impression - Status: SIGNED Entered: 08/17/2019 1541 IMPRESSION: Renal fusion anomaly (horseshoe kidn ey) noted. No other significant findings identified. Impression By: Pavel Carmichael MD Re-Evaluation MDM ED Course Medication(s) Ordered Medication(s) Ordered: Central Nervous System Agents Sig/Anshul Start time Last Medication Dose Route Stop Time Status Admin Promethazine HCl 25 MG X1ED STA 08/16 1453 DC 0 08/16 IM 08/16 1454 1458 Morphine Sulfate 4 MG X1ED STA 08/16 1346 DC IV 08/16 1347 1349 Electrolytic, Caloric, And Akash Sig/Anshul Start time Last Medication Dose Route Stop Time Status Admin Sodium Chloride 1,000 ML X1ED STA 08/16 1332 DC 08/16 IV 08/16 1333 1350 Gastrointestinal Drugs Sig/Anshul Start time Last Medication Dose Route Stop Time Status Admin Famotidine 20 MG X1ED STA 08/16 1346 DC 08/16 IV 08/16 1347 1350 Ondansetron HCl 4 MG X1ED STA 08/16 1332 DC IV 08/16 1333 1350 Patient Discharge Departure Vital Signs/Condition Vital Signs First Documented: Result Date Time Pulse Ox 100 08/16 1336 B/P 145/73 08/16 1336 B/P Mean 97 08/16 1336 O2 Delivery Room air 08/16 1336 Temp 36.7 08/16 1336 Pulse 90 08/16 1336 Resp 16 08/16 1336 Last Documented: Result Date Time Pulse Ox 100 08/16 1336 B/P 145/73 08/16 1336 B/P Mean 97 08/16 1336 O2 Delivery Room air 08/16 1336 Temp 36.7 08/16 1336 Pulse 90 08/16 1336 Resp 16 08/16 1336 All vital signs available at the time of this en try have been reviewed. Condition Stable Clinical Impression Clinical Impression Primary Impression: Epigastric pain Time of Impression 1553 Disposition Decision Discharge )( Discharged to Home Yes )( Time 1553 )( Date 08/17/19 Discharge/Care Plan (Auto) Prescriptions Current Visit Scripts No Known Home Medications Free Text Depart Notes Free Text Depart Notes 24 years old patient presents complaining of epi gastric pain after eating, possible episode gastritis will discharge and sy mptomatic treatment warning signs and ER precautions given. at 1551 RPT #:[id number] END OF REPORT"
[2022-09-26 10:50] LABS: Specific Gravity 1.022 (1.005-1.030)
[2022-09-26 10:51] LABS: Specific Gravity 1.022 (1.005-1.030); Urine Bacteria None Seen /HPF (<20); Urine Bilirubin NEGATIVE (Negative); Urine Blood Negative (Negative); Urine Clarity Turbid (Clear); Urine Color Yellow (Yellow); Urine Glucose NEGATIVE (Negative); Urine Mucus 1+ /HPF (None Seen); Urine Protein NEGATIVE (Negative); Urine RBC <5 /HPF (None Seen); Urine Urobilinogen 1+ (Normal)
--- NOTE | 2022-09-26 11:01 | RAD REPORT ---
EXAM DESCRIPTION: RAD - Humerus Right - 09/26/2022 10:50 am CLINICAL HISTORY: blunt trauma, possible implant fracture COMPARISON: No comparisons FINDINGS/IMPRESSION: No acute fracture. No malalignment. No significant focal degenerative changes. Subpleural contraceptive implant in place and which appears intact.
--- NOTE | 2022-09-26 11:49 | RAD REPORT ---
EXAM DESCRIPTION: US - Transvaginal Study Probe - 09/26/2022 11:32 am CLINICAL HISTORY: vaginal bleeding;Abd pain Pelvic pain. COMPARISON: No comparisons FINDINGS: The uterus is normal in size, shape and echotexture. The uterus measures 7.4 x 4.4 x 5.2 c m The endometrial stripe measures 4 mm, normal. The right ovary measures 2.8 x 2.2 x 2.2 cm with volume of 7.4 cc. No left over identified. No ovar laura or parovarian lesions. No adnexal masses. The right ovary has vascular flow. No significant pelvic ascites. IMPRESSION: Unremarkable right ovary with vascular flow. Left ovary not visualized. Endometrial stri pe within normal limits.
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
--- NOTE | 2022-09-26 12:21 | ER ---
Nurse's Notes [facility] Name: Dylan Lopes Age: 27 yrs Sex: Female : 1995 Arrival Date: 09/26/2022 Time: 10:16 Bed 13 Private MD: Diagnosis: Abnormal uterine and vaginal bleeding, unspecified Presentation: 09/26 10:23 Chief complaint: Patient states: Vaginal bleeding for the past 5 days \T\ right arm os uncomfortable. Coronavirus screen: Vaccine status: At this time, the client does not indicate any symptoms associated with coronavirus-19. Ebola Screen: Patient negative for fever greater than or equal to 101.5 degrees Fahrenheit, and additional compatible Ebola Virus Disease symptoms. Initial Sepsis Screen: Does the patient meet any 2 criteria? No. Patient's initial sepsis screen is negative. Initial Sepsis Screen: Does the patient have a suspected source of infection? No. Patient's initial sepsis screen is negative. Risk Assessment: Do you want to hurt yourself or someone else? Patient reports no desire to harm self or others. Onset of symptoms was September 21, 2022. 10:23 Method Of Arrival: Ambulatory os 10:23 Acuity: CORONA 3 os Triage Assessment: 10:27 General: Appears in no apparent distress. Behavior is calm, cooperative, appropriate os for age. Pain: Denies pain. GI: Reports cramping. Historical: - Allergies: 10:26 No Known Allergies; os - PSHx: 10:26 ; os - Immunization history:: Adult Immunizations up to date, Client reports receiving the 1st dose of the Covid vaccine, 03/12. - Social history:: Smoking status: Patient reports the use of cigarette tobacco products, denies chronic smoking, but will smoke occasionally. - Family history:: not pertinent. - Hospitalizations: : No recent hospitalization is reported. Screenin:28 [facility] ED Fall Risk Assessment (Adult) Score/Fall Risk Level 0 - 2 = Low Risk. Abuse eh3 screen: Denies threats or abuse. Denies injuries from another. Nutritional screening: No deficits noted. Tuberculosis screening: No symptoms or risk factors identified. Assessment: 10:28 General: Appears in no apparent distress. uncomfortable, Behavior is calm, cooperative, eh3 appropriate for age. Pain: Complains of pain in abdomen and right arm. Neuro: Level of Consciousness is awake, alert, obeys commands, Oriented to person, place, time, situation. Cardiovascular: Capillary refill < 3 seconds Patient's skin is warm and dry. Respiratory: Airway is patent Respiratory effort is even, unlabored, Respiratory pattern is regular, symmetrical. GI: Abdomen is round non-distended, Bowel sounds present X 4 quads. Abd is soft and non tender X 4 quads. Derm: Skin is pink, warm \T\ dry. Musculoskeletal: Circulation, motion, and sensation intact. 11:12 Reassessment: Patient appears in no apparent distress at this time. Patient and/or eh3 family updated on plan of care and expected duration. Pain level reassessed. Patient is alert, oriented x 3, equal unlabored respirations, skin warm/dry/pink. 11:45 Reassessment: Patient appears in no apparent distress at this time. Patient and/or eh3 family updated on plan of care and expected duration. Pain level reassessed. Patient is alert, oriented x 3, equal unlabored respirations, skin warm/dry/pink. Vital Signs: 10:23 BP 125 / 79; Pulse 86; Resp 17; Temp 98; Pulse Ox 100% on R/A; Weight 77.11 kg; os 11:45 BP 119 / 73; Pulse 82; Resp 20; Pulse Ox 100% ; aw1 ED Course: 10:19 Patient arrived in ED. im 10:19 Abdirashid Chappell MD is Attending Physician. rn 10:26 Triage completed. os 10:28 Patient has correct armband on for positive identification. Pulse ox on. NIBP on. Door eh3 closed. Noise minimized. Warm blanket given. 10:32 Laura Mcmahan, RN is Primary Nurse. eh3 10:51 XRAY Humerus RIGHT In Process Unspecified. EDMS 11:34 Transvaginal Study Probe In Process Unspecified. EDMS 12:27 No provider procedures requiring assistance completed. Patient did not have IV access eh3 during this emergency room visit. 12:28 Arm band placed on. eh3 Administered Medications: No medications were administered Medication: 12:28 VIS not applicable for this client. eh3 Outcome: 12:20 Discharge ordered by . rn 12:28 Discharged to home ambulatory. eh3 12:28 Condition: stable 12:28 Discharge instructions given to patient, Instructed on discharge instructions, follow up and referral plans. Demonstrated understanding of instructions, follow-up care. 12:28 Patient left the ED. eh3 Signatures: Dispatcher [employer] EDAbdirashid Connor MD MD rn Hall, Erin, RN RN eh3 Ashley Hutchins RN RN os Gloria Leos Alyssa aw1 Corrections: (The following items were deleted from the chart) 10:27 10:26 PSHx: section; os os 11:25 11:23 Reassessment: Patient appears in no apparent distress at this time. Patient eh3 and/or family updated on plan of care and expected duration. Pain level reassessed. Patient is alert, oriented x 3, equal unlabored respirations, skin warm/dry/pink. eh3
[2022-09-26 12:33] VITALS: TEMP 98; O2SAT 100
[2022-09-26 12:35] VITALS: BP 119/73
== END 2022-09-26 12:28 | disposition home or self-care (01) ==
LOC: ER 10:16
DX: N93.9 Abnormal uterine and vaginal bleeding, unspecified (principal); F17.210 Nicotine dependence, cigarettes, uncomplicated
CPT/HCPCS: 76830; 81001; 81025; 99283

== ENCOUNTER 2022-10-28 16:11 | Emergency (ER) | payer OTHER ==
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
--- NOTE | 2022-10-28 16:50 | ER ---
Nurse's Notes [facility] Name: Dylan Lopes Age: 27 yrs Sex: Female : 1995 Arrival Date: 10/28/2022 Time: 16:11 Bed IW6 Private MD: Diagnosis: Cellulitis of left upper limb Presentation: 10/28 16:34 Chief complaint: Patient states: Left upper arm pain, swelling. Pt thought she had a nj1 mosquito bite on Thursday night but has worsen, Thursday it was getting warm to touch and painful, so she is concerned it may have been a spider bite. Coronavirus screen: Vaccine status: Patient reports receiving the 1st dose of the Covid vaccine. Ebola Screen: Patient denies travel to an Ebola-affected area in the 21 days before illness onset. Initial Sepsis Screen: Does the patient meet any 2 criteria? No. Patient's initial sepsis screen is negative. Does the patient have a suspected source of infection? No. Patient's initial sepsis screen is negative. Risk Assessment: Do you want to hurt yourself or someone else? Patient reports no desire to harm self or others. Onset of symptoms was October 26, 2022. 16:34 Method Of Arrival: Ambulatory [facility] 16:34 Acuity: CORONA 4 nj1 Triage Assessment: 16:40 General: Appears in no apparent distress. comfortable, Behavior is calm, cooperative, nj1 appropriate for age. 16:40 Pain: Complains of pain in left tricep Pain currently is 8 out of 10 on a pain scale. nj1 Neuro: Level of Consciousness is awake, alert, obeys commands, Oriented to person, place, time, situation. Cardiovascular: Patient's skin is warm and dry. Respiratory: Airway is patent Respiratory effort is even, unlabored. Derm: Lesion to left upper arm, warm to touch. No drainage noted. Historical: - Allergies: 16:37 No Known Allergies; nj1 - PMHx: 16:37 None; nj1 - PSHx: 16:37 section; nj1 - Immunization history:: Client reports receiving the 1st dose of the Covid vaccine. - Social history:: Smoking status: Patient reports the use of cigarette tobacco products, denies chronic smoking, but will smoke occasionally, Reported history of juuling and/or vaping. Screenin:57 [facility] ED Fall Risk Assessment (Adult) History of falling in the last 3 months, nj1 including since admission Score/Fall Risk Level 0 - 2 = Low Risk Oriented to surroundings, Maintained a safe environment. Abuse screen: Denies threats or abuse. Denies injuries from another. Nutritional screening: No deficits noted. Tuberculosis screening: No symptoms or risk factors identified. Vital Signs: 16:34 BP 113 / 69; Pulse 64; Resp 18; Temp 98.4(TE); Pulse Ox 100% ; Weight 78.93 kg; Height nj1 5 ft. 8 in. ; Pain 8/10; 16:34 Body Mass Index 26.46 (78.93 kg, 172.72 cm) nj1 16:34 Pain Scale: Adult nj1 ED Course: 16:16 Patient arrived in ED. kj1 16:37 Triage completed. nj1 16:38 Olegario Todd PA is PHCP. cp 16:38 Fadi Patel MD is Attending Physician. cp 16:38 Arm band placed on right wrist. nj1 16:56 No provider procedures requiring assistance completed. Patient did not have IV access nj1 during this emergency room visit. 16:57 Patient has correct armband on for positive identification. nj1 Administered Medications: No medications were administered Medication: 16:58 VIS not applicable for this client. nj1 Outcome: 16:49 Discharge ordered by . cp 16:56 Discharged to home ambulatory. nj1 16:56 Condition: stable 16:56 Discharge instructions given to patient, Instructed on discharge instructions, follow up and referral plans. medication usage, Demonstrated understanding of instructions, follow-up care, medications, Prescriptions given X 2. 16:58 Patient left the ED. nj1 Signatures: Olegario Todd PA PA cp Jackson, Kandis kj1 Karely Chavarria RN RN nj1 Corrections: (The following items were deleted from the chart) 16:38 16:37 PSHx: ; nj1 nj1
--- NOTE | 2022-10-28 16:50 | EDPHYS ---
Physician Documentation [facility] Name: Dylan Lopes Age: 27 yrs Sex: Female : 1995 Arrival Date: 10/28/2022 Time: 16:11 Bed IW6 Private MD: ED Physician Fadi Patel HPI: 10/28 16:42 This 27 yrs old Black Female presents to ER via Ambulatory with complaints of SPIDER cp BITE. 16:42 The patient or guardian complains of a bite, by an insect. The complaints affect the cp lateral side of left upper arm. Onset: The symptoms/episode began/occurred bitten this past weekend. Associated signs and symptoms: Pertinent positives: increased pain, warm to touch, swelling, Pertinent negatives: decreased range of motion, fever, numbness, vomiting, weakness. Historical: - Allergies: 16:37 No Known Allergies; nj1 - PMHx: 16:37 None; nj1 - PSHx: 16:37 section; nj1 - Immunization history:: Client reports receiving the 1st dose of the Covid vaccine. - Social history:: Smoking status: Patient reports the use of cigarette tobacco products, denies chronic smoking, but will smoke occasionally, Reported history of juuling and/or vaping. ROS: 16:43 Constitutional: Negative for body aches, chills, fever, poor PO intake. cp 16:43 Cardiovascular: Negative for chest pain. 16:43 Respiratory: Negative for cough, shortness of breath, wheezing. Exam: 16:45 Constitutional: The patient appears in no acute distress, alert, awake, comfortable, cp non-toxic, well developed, well nourished. 16:45 Head/Face: Normocephalic, atraumatic. cp 16:45 Eyes: Periorbital structures: appear normal, Conjunctiva: normal, no exudate, no cp injection, Sclera: no appreciated abnormality, Lids and lashes: appear normal, bilaterally. 16:45 ENT: External ear(s): are unremarkable, Nose: is normal, Mouth: Lips: moist, Oral mucosa: pink and intact, moist, Posterior pharynx: is normal, airway is patent. 16:45 Chest/axilla: Inspection: normal. 16:45 Cardiovascular: Rate: normal, Rhythm: regular. cp 16:45 Respiratory: the patient does not display signs of respiratory distress, Respirations: normal, no use of accessory muscles, no retractions, labored breathing, is not present. 16:45 Abdomen/GI: Exam negative for discomfort, distension, guarding, Inspection: abdomen appears normal. 16:45 Back: pain, is absent, ROM is normal. 16:45 Skin: mild erythema and swelling noted lateral side left upper arm, tenderness to palpation extending proximally to left shoulder. Vital Signs: 16:34 BP 113 / 69; Pulse 64; Resp 18; Temp 98.4(TE); Pulse Ox 100% ; Weight 78.93 kg; Height nj1 5 ft. 8 in. ; Pain 8/10; 16:34 Body Mass Index 26.46 (78.93 kg, 172.72 cm) nj 16:34 Pain Scale: Adult nj1 MDM: 16:42 Patient medically screened. cp 16:42 Differential diagnosis: cellulitis, abscess, localized allergic reaction. cp 16:48 Data reviewed: vital signs, nurses notes, and as a result, I will discharge patient. cp 16:48 Counseling: I had a detailed discussion with the patient and/or guardian regarding: the cp historical points, exam findings, and any diagnostic results supporting the discharge/admit diagnosis, to return to the emergency department if symptoms worsen or persist or if there are any questions or concerns that arise at home. Administered Medications: No medications were administered Disposition: 18:42 Co-signature as Attending Physician, Fadi Patel MD I agree with the assessment and kdr plan of care. Disposition Summary: 10/28/22 16:49 Discharge Ordered Location: Home cp Problem: new cp Symptoms: are unchanged cp Condition: Stable cp Diagnosis - Cellulitis of left upper limb cp Followup: cp - With: Private Physician - When: 2 - 3 days - Reason: Worsening of condition Discharge Instructions: - Discharge Summary Sheet cp - Cellulitis, Adult cp Forms: - Medication Reconciliation Form cp - Thank You Letter cp - Antibiotic Education cp - Prescription Opioid Use cp - Patient Portal Instructions cp Prescriptions: - Clindamycin HCl 300 mg Oral Capsule - take 1 capsule by ORAL route every 6 hours for 10 days; 40 capsule; Refills: 0, cp Product Selection Permitted - Ibuprofen 800 mg Oral Tablet - take 1 tablet by ORAL route every 8 hours As needed take with food; 30 tablet; cp Refills: 0, Product Selection Permitted Signatures: Fadi Patel MD MD kdr Olegario Todd PA PA cp Jaco, Norma RN RN nj1 Corrections: (The following items were deleted from the chart) 16:38 16:37 PSHx: ; nj1 nj1
[2022-10-28 17:10] VITALS: BP 113/69; TEMP 98.4; O2SAT 100
== END 2022-10-28 16:58 | disposition home or self-care (01) ==
LOC: ER 16:11
DX: L03.114 Cellulitis of left upper limb (principal); Z72.0 Tobacco use
CPT/HCPCS: 99283

== ENCOUNTER 2023-01-16 16:07 | Emergency (ER) | payer OTHER ==
--- OUTSIDE RECORDS SUMMARY | 2023-01-16 16:13 | XMS REPORT | Continuity of Care Document ---
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 ity of [facility] 4.2.7.2.686 [place]ico as MATERNAL [id number] Med ical & CHILD [address] [place] [address] 2020-11-19 2020-11-19 Outpatient R AKINPE, [facility] [id number] Univers 08:30:00 08:30:00 NORMA magaña o f [facility] 2020-11-19 2020-11-19 Outpatient R [facility] [id number] Univers 08:30:00 08:30:00 NORMA gómez o f [facility] 2020-11-19 2020-11-19 Orders Doctor MCGINNIS 1.2.840.114 [id number] Univers 00:00:00 00:00:00 Only Unassigned, BIBI 350.1.13.10 ity of [place] [facility] 4.2.7.2.686 [place] [phone] [address] 2020-11-19 2020-11-19 Orders Doctor MCGINNIS 1.2.840.114 [id number] Univers 00:00:00 00:00:00 Only Unassigned, BIBI 350.1.13.10 ity of [place] [facility] 4.2.7.2.686 [place] as [phone] [address] 2020-11-08 2020-11-08 Outpatient R [facility] [id number] Univers 15:30:00 15:30:00 ity of [facility] 2020-11-07 2020-11-07 [facility] [id number] Univers 10:00:00 10:00:00 NORMA mikeyy o [facility] 2020-11-07 2020-11-07 Telephone [facility] 1.2.840.114 [id number] Univers 00:00:00 00:00:00 Norma C 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 350.1.13.10 ity of [facility] 4.2.7.2.686 [place]ico as MATERNAL [phone] [facility] ical & CHILD [address] [place] [address] 2020-10-30 2020-10-30 Telephone [facility] 1.2.840.114 [id number] Univers 00:00:00 00:00:00 Norma C 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 350.1.13.10 ity of [facility] 4.2.7.2.686 Nico as MATERNAL [phone] [facility] & CHILD [address] [place] [address] 2020-08-21 2020-08-21 [facility] [id number] Univers 16:00:00 16:00:00 NORMA ernst jaqueline [facility] 2020-08-16 2020-08-16 Nurse Visit, Lorinicholas Nurse [facility] 1.2 .840.114 [id number] Univers 14:46:36 15:01:36 Visit Norma Cole 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 350.1.13. 10 ity of [facility] 4.2.7.2.686 [place] as MATERNAL [id number] [address] 2020-08-16 2020-08-16 [facility] [id number] Univers 15:00:00 15:00:00 NORMA ernst [facility] 2020-08-16 2020-08-16 Outpatient R [facility] [id number] Univers 14:30:00 14:30:00 ity [facility] 2020-05-24 2020-05-24 Nurse Visit, [facility] 1.2.840.114 [id number] 14:58:09 15:06:57 Visit Lorinicholas 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 350.1.13.10 Nurse [facility] 4.2.7.2.686 MATERNAL [phone] & [address] 2020-05-24 2020-05-24 [facility] 1.2 .840.114 [id number] Univers 14:58:09 15:06:57 Visit Norma Cole 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 350.1.13. 10 ity [facility] 4.2.7.2.686 [place] MATERNAL [phone] [address] 2020-05-24 2020-05-24 Outpatient R [facility] [id number] Univers 15:00:00 15:00:00 ity [facility] 2020-03-01 2020-03-01 Nurse Visit, [facility] 1.2.840.114 [id number] 15:03:57 15:34:52 [facility] 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 350.1.13.10 Nurse [facility] 4.2.7.2.686 MATERNAL [phone] & CHILD [address] [facility] 2020-03-01 2020-03-01 Nurse Visit, Romulo-Edwarchnicholas Nurse [facility] 1.2 .840.114 [id number] Univers 15:03:57 15:34:52 Visit Norma Cole 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 350.1.13. 10 ity [facility] 4.2.7.2.686 [place]ico as MATERNAL [phone] [facility] & CHILD [address] [place] [address] 2020-03-01 2020-03-01 Outpatient R [facility] [id number] Univers 15:00:00 15:00:00 ity [facility] 2020-03-01 2020-03-01 [facility] [id number] Univers 15:00:00 15:00:00 NORMA parsons [facility] 2020-02-22 2020-02-22 Outpatient R [facility] [id number] Univers 13:30:00 13:30:00 ity [facility] 2019-11-30 2019-11-30 Office Douglas [facility] 1.2.826.167 [id number] 13:20:31 14:15:04 Visit Norma Marquez 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 350.1.13.10 [place] 4.2.7.2.686 MATERNAL [phone] & CHILD [address] [place] [address] 2019-11-30 2019-11-30 Office Douglas [facility] 1.2.929.031 [id number] Univers 13:20:31 14:15:04 Visit Norma C 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 350.1.13.10 ity [facility] 4.2.7.2.686 Nico as MATERNAL [phone] [facility] & CHILD [address] [place] [address] 2019-11-30 2019-11-30 Outpatient R DOUGLAS [facility] [id number] Univers 13:30:00 13:30:00 NORMA parsons [facility] 2019-11-23 2019-11-23 Office [facility] 1.2.886.832 [id number] Univers 13:50:16 15:50:06 Visit Norma Marquez 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 350.1.13.10 ity of [address]686 [place]ico as MATERNAL [phone] [facility] & [address] 2019-11-23 2019-11-23 Outpatient R [facility] [id number] Univers 13:45:00 13:45:00 NORMA magaña o f [facility] 2019-11-23 2019-11-23 Orders Doctor RAHEL 1.2.840.114 [id number] Univers 00:00:00 00:00:00 Only Unassigned, BIBI 350.1.13.10 ity of [place] [address].2.7.2.686 Nico as [phone] [address] 2019-11-22 2019-11-22 Outpatient R [facility] [id number] Univers 15:45:00 15:45:00 NORMA ernst f [facility] 2019-11-21 2019-11-21 Telephone [facility] 1.2.840.114 [id number] Univers 00:00:00 00:00:00 Norma Marquez 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 350.1.13.10 ity [place] [address].2.7.2.686 Nico as MATERNAL [phone] [facility] & [address] Results Test Description Test Time Test Comments Results Result Comments Source HIV 1/2 AG-AB WITH REFLEX 2022-02-21 09:03:00 Test Item Value Reference Range Interpretation Comme nts HIV Semi-quantitative (test code = Negative Negative 73191-7) CYNTHIA (test code = CYNTHIA) Non-reactive for HIV-1 antigen and HIV-1/HIV-2 antibodies. ?No laboratory evidence of HIV infection. ?Repeat in 2-4 weeks if acute HIV infection is suspected. [facility] WITH [id number] 09:03:00 Test Item Value Reference Range Interpretation Comments HIV Negative Negative Semi-quantitative (test code = 73580-5) CYNTHIA (test code = Non-reactive for HIV-1 CYNTHIA) antigen and HIV-1/HIV-2 antibodies. ?No laboratory evidence of HIV infection. ?Repeat in 2-4 weeks if acute HIV infection is suspected. [facility] [id number] 04:30:00 Test Item Value Reference Range Interpretation Comments POCT PREG (test code = 1605) Negative On board controls acceptable with Positive C Line (test code = 3574) POCT PREG LOT # (test code = 3575) [id number] POCT PREG TEST DATE (test 01/20/23 code = 3576) Lab Interpretation (test code = Normal 33219-6) [facility]. METABOLIC PANEL (13699)2021-08-15 04:03:36 Test Item Value Reference Range Interpretation Comments NA (test code = 139 mmol/L 135-145 2951100672) K (test code = 3.9 mmol/L 3.5-5.0 0559979262) CL (test code = 102 mmol/L 98-108 5830858495) CO2 TOTAL (test code = 28 mmol/L 23-31 2037410811) AGAP (test code = 2-16 1560793751) BUN (test code = 8 mg/dL 7-23 9346011820) GLUCOSE (test code = 113 mg/dL 70-110 H 9117763939) CREATININE (test code = 0.50 mg/dL 0.50-1.04 6752909896) TOTAL BILI (test code = 0.5 mg/dL 0.1-1.2 0698622031) CALCIUM (test code = 9.0 mg/dL 8.6-10.6 0916066676) T PROTEIN (test code = 7.4 g/dL 6.3-8.2 1386166551) ALBUMIN (test code = 4.4 g/dL 3.5-5.0 4249225619) ALK PHOS (test code = 103 U/L 34-122 9463901185) ALTv (test code = 28 U/L 5-35 1742-6) AST(SGOT) (test code = 40 U/L 13-40 9663689997) eGFR (test code = mL/min/1.73m2 0417828051) CYNTHIA (test code = CYNTHIA) Association of [...] tests). Lab Interpretation Abnormal (test code = 89862-2) [facility] 04:02:56 Test Item Value Reference Range Interpretation Comments LIPASE (test code = 5055345070) 48 U/L 0-220 Lab Interpretation (test code = Normal 69139-3) [facility]th[facility] (PTT) / [id number] 03:56:57 Test Item Value Reference Range Interpretation Comments PROTIME PATIENT (test See_Comment [Auto mated message] code = 5964-2) The system 123people generated this result transmitted ref erence range: 12.0 - 1 4.7 Seconds. The re ference range was not u sed to interpret this result as normal/abnor mal. INR (test code = 6301-6) Nor mal INR <1.1; Warfarin Therap eutic range 2.0 to 3. 0 or 2.5 to 3.5, dep ending upon the indica tions. Lab Interpretation (test Normal code = 11712-1) [facility] WITH [id number] 03:52:36 Test Item Value Reference Range Interpretation [...] (test code = 38.3 fL 39.0-49.9 L 18941-8) RDW-CV (test code = 11.9 % 12.0-15.5 L 788-0) PLT (test code = See_Comment [Automated 777-3) message] The sy stem which generated this result transmitted reference range : 166 - 358 10*3/ ?L. The reference r oh was not used to interpret this result as normal/abnormal . MPV (test code = 9.4 fL 9.5-12.9 L 76604-3) NRBC/100 WBC (test See_Comment [Automat ed code = 6780963344) message] The system which generated this result transmitted reference range : 0.0 - 10.0 /100 WBCs. The refer ence range was not u sed to interpret th is result as normal/abnormal . NRBC x10^3 (test code <0.01 See_Comment [Auto mated = 3871573813) message] The s ystem which generated this result transmitted reference range : 10*3/?L. The reference range was not used to interpret this result as normal/abnormal . GRAN MAT (NEUT) % 65.9 % (test code = 770-8) IMM GRAN % (test code 0.30 % = 8725735733) LYMPH % (test code = 21.9 % 736-9) MONO % (test code = 8.2 % 5905-5) EOS % (test code = 2.9 % 713-8) BASO % (test code = 0.8 % 706-2) GRAN MAT x10^3(ANC) 4.02 10*3/uL 1.88-7.09 (test code = 7520925994) IMM GRAN x10^3 (test <0.03 0.00-0.06 code = 0257233021) LYMPH x10^3 (test code 1.34 10*3/uL 1.32-3.29 = 731-0) MONO x10^3 (test code 0.50 10*3/uL 0.33-0.92 = 742-7) EOS x10^3 (test code = 0.18 10*3/uL 0.03-0.39 711-2) BASO x10^3 (test code 0.05 10*3/uL 0.01-0.07 = 704-7) Lab Interpretation Abnormal (test code = 07368-8) [facility] ABDOMEN [id number] 15:38:00 Patient Name: IVIS WADE Unit No: [id number] EXAMS: CPT CODE: [id number] ABDOMEN LTD 85895 EXAM: Right upper quadrant ultrasound. EXAM DATE: [...] Technologist: Emily Abreu RDMS Probe: Trnscrbd D/ (1537) [email or web address] Orig Print D/T: S: 08/17/2019 (1545) [facility] NAME: IVIS WADE Radiology Department PHYS: [facility] [address] : 1995 AGE: 24 SEX: F [place] [address] LOC: ElenaERS PHONE #: [phone] EXAM DATE: 08/17/19 20 STATUS: REG ER FAX #: [phone] RAD NO: Page 1 Signed Report Patient Name: IVIS WADE Unit No: [id number] EXAMS: CPT CODE: [id number] ABDOMEN LTD 82851 (Continued) [facility] NAME: IVIS WADE Radiology Department PHYS: [facility] [address] : 1995 AGE: 24 SEX: F [place] [address] LOC: ElenaERS PHONE #: [phone] EXAM DATE: 08/17/2019 STATUS: REG ER FAX #: [phone] RAD NO: Page 2 Signed ReportCOMPREHENSIVE METABOLIC [id number] 14:13:00 Test Item Value Reference Range Interpretation [...] 79 units/L 46-116 N code = ALKP) [id number] 14:13:00 Test Item Value Reference Range Interpretation Comments LIPASE (test code = LIP) 57 units/L 73-393 L UA RFLX MICR CULT IF [id number] 13:55:00 Test Item Value Reference Range Interpretation [...] SEEN Indication for culture: Suprapubic PainUR HCG [id number] 13:55:00 Test Item Value Reference Range Interpretation [...] Indication for culture: Suprapubic PainDRUGS OF ABUSE [id number] 13:54:00 Test Item Value Reference Range Interpretation Comments UR COCAINE (test code = NEGATIVE NEGATIVE DETE CTION CUT OFF: COCAU) 150 ng/mL UR CANNABINOIDS (test POSITIVE NEGATIVE A RESULT S CALLED TO code = CANU) NAAI/ER.READ BACK & CONFIRMED? Y. BY FJasperLAB. 3923. DETECTION CUT OFF: 50 ng/mL UR AMPHETAMINE [...] ng/m L UA RFLX MICR CULT IF [id number] 13:53:00 Test Item Value Reference Range Interpretation [...] RARE-FEW Indication for culture: Suprapubic PainUR HCG [id number] 13:53:00 Test Item Value Reference Range Interpretation [...] tested. Indication for culture: Suprapubic PainCBC W/AUTO [id number] 13:52:00 Test Item Value Reference Range Interpretation [...] MORPHOLOGY REQUIRED (test NORMAL NORMAL code = PLTMR)"
[2023-01-16] MEDS ORDERED: FAMOTIDINE 20 MG/2 ML VIAL IV ONE (16:56)
[2023-01-16] MEDS ORDERED: METOCLOPRAMIDE 10 MG/2mL INJ ONE (16:56)
[2023-01-16] MEDS ORDERED: NA CHLORIDE 0.9% 50 ML ONE (16:57)
[2023-01-16] MEDS ORDERED: NA CHLORIDE 0.9% 1,000 ML ONE (16:57)
[2023-01-16 17:23] LABS: Absolute Lymphocytes (CBC) 1.1 K/uL (0.7-4.9); Hematocrit 43.8 % (36.0-45.0); Lymphocytes % 18.2 % (15.3-44.8); MCV 93.2 fL (80-100); MPV 9.6 fL (7.6-11.3); Platelets 159 thou/uL (152-406)
[2023-01-16 17:31] LABS: Benzodiazepines POSITIVE (NEGATIVE); Cocaine POSITIVE (NEGATIVE); METHAMPHETAM NEGATIVE (NEGATIVE); Methadone ND (NEGATIVE); Opiates NEGATIVE (NEGATIVE); Phencyclidine NEGATIVE (NEGATIVE); THC Cannibis POSITIVE (NEGATIVE)
[2023-01-16 17:32] LABS: Barbiturates NEGATIVE (NEGATIVE)
[2023-01-16 17:33] LABS: Phosphorus 3.8 mg/dL (2.5-4.9)
[2023-01-16 17:34] LABS: Magnesium 1.8 mg/dL (1.6-2.4)
[2023-01-16 17:38] LABS: Urine Bacteria None Seen /HPF (<20); Urine Bilirubin NEGATIVE (Negative); Urine Blood Negative (Negative); Urine Clarity Turbid (Clear); Urine Color Light-Yellow (Yellow); Urine Glucose NEGATIVE (Negative); Urine Mucus Slight /HPF (None Seen); Urine Protein 1+ (Negative); Urine Urobilinogen Normal (Normal); Urine pH 8.5 (5.0-7.0)
[2023-01-16 18:14] LABS: Blood Morphology Comment NOT SEEN (NOT SEEN); Platelet Estimate ADEQ
[2023-01-16 18:15] LABS: Albumin 4.3 g/dL (3.4-5.0); Bilirubin Total 0.4 mg/dL (0.2-1.0); Potassium 3.6 mEq/L (3.5-5.1); Protein, Total 8.3 g/dL (6.4-8.2)
[2023-01-16 18:16] LABS: White Blood Cell Scan OK (OK)
--- NOTE | 2023-01-16 18:32 | ER ---
Nurse's Notes [facility] Name: Dylan Lopes Age: 27 yrs Sex: Female : 1995 Arrival Date: 01/16/2023 Time: 16:07 Bed Treatment Private MD: Diagnosis: Nausea with vomiting, unspecified;Abdominal pain, unspecified Presentation: 01/16 16:20 Chief complaint: Patient states: Abd pain, N/V since this morning. Coronavirus screen: ld1 At this time, the client does not indicate any symptoms associated with coronavirus-19. Ebola Screen: No symptoms or risks identified at this time. Initial Sepsis Screen: Does the patient meet any 2 criteria? No. Patient's initial sepsis screen is negative. Does the patient have a suspected source of infection? No. Patient's initial sepsis screen is negative. Risk Assessment: Do you want to hurt yourself or someone else? Patient reports no desire to harm self or others. Onset of symptoms was January 16, 2023 at 16:21. 16:20 Method Of Arrival: Ambulatory ld1 16:20 Acuity: CORONA 3 ld1 Triage Assessment: 16:21 General: Appears in no apparent distress. uncomfortable, Behavior is anxious, crying. ld1 Pain: Complains of pain in abdomen Pain does not radiate. Pain currently is 10 out of 10 on a pain scale. Quality of pain is described as throbbing, Pain began suddenly, Is continuous. EENT: No signs and/or symptoms were reported regarding the EENT system. Neuro: Level of Consciousness is awake, alert, obeys commands, Oriented to person, place, time, situation. Cardiovascular: Capillary refill < 3 seconds Patient's skin is warm and dry. Respiratory: Airway is patent Respiratory effort is even, unlabored. GI: Abdomen is flat, non-distended, Reports lower abdominal pain, upper abdominal pain, nausea, vomiting. : No signs and/or symptoms were reported regarding the genitourinary system. Derm: No signs and/or symptoms reported regarding the dermatologic system. Musculoskeletal: No signs and/or symptoms reported regarding the musculoskeletal system. Historical: - Allergies: 16:21 No Known Allergies; ld1 - Home Meds: 16:21 None [Active]; ld1 - PMHx: 16:21 None; ld1 - PSHx: 16:21 section; ld1 - Immunization history:: Adult Immunizations up to date. - Social history:: Smoking status: Patient denies any tobacco usage or history of. Patient/guardian denies using alcohol. Screenin:46 [facility] ED Fall Risk Assessment (Adult) History of falling in the last 3 months, kd3 including since admission No falls in past 3 months (0 pts) Confusion or Disorientation No (0 pts) Intoxicated or Sedated No (0 pts) Impaired Gait No (0 pts) Mobility Assist Device Used No (0 pt) Altered Elimination No (0 pt) Score/Fall Risk Level 0 - 2 = Low Risk Maintained a safe environment. Abuse screen: Denies threats or abuse. Denies injuries from another. Nutritional screening: No deficits noted. Tuberculosis screening: No symptoms or risk factors identified. Assessment: 17:43 General: Appears in no apparent distress. Behavior is calm, cooperative. Neuro: Level kd3 of Consciousness is awake, alert, obeys commands, Oriented to person, place, time, situation. Respiratory: Airway is patent Trachea midline Respiratory effort is even, unlabored, Respiratory pattern is regular, symmetrical. 18:47 GI: Bowel sounds present X 4 quads. Abdomen is tender to palpation in right lower kd3 quadrant and left lower quadrant. Vital Signs: 16:20 Pulse 119; Resp 20; Temp 97.6(O); Weight 71.67 kg; Height 5 ft. 8 in. ; Pain 10/10; ld1 16:20 BP 148 / 91; Pulse Ox 100% on R/A; ld1 17:42 BP 118 / 74; Pulse 67; Resp 16; Pulse Ox 100% on R/A; kd3 18:45 BP 119 / 73; Pulse 71; Resp 19; Pulse Ox 100% on R/A; kd3 16:20 Body Mass Index 24.02 (71.67 kg, 172.72 cm) ld1 16:20 Pain Scale: Adult ld1 ED Course: 16:11 Patient arrived in ED. im 16:17 Olegario Todd PA is PHCP. cp 16:17 Olegario Peck MD is Attending Physician. cp 16:21 Triage completed. ld1 16:21 Arm band placed on right wrist. ld1 16:40 Eryn Isbell RN is Primary Nurse. kd3 17:30 Inserted saline lock: 20 gauge in right antecubital area, using aseptic technique. kd3 Blood collected. 18:31 Gian Villalba MD is Referral Physician. cp 18:47 Patient has correct armband on for positive identification. Provided Education on: kd3 abdominal pain. 18:47 No provider procedures requiring assistance completed. IV discontinued, intact, kd3 bleeding controlled, No redness/swelling at site. Pressure dressing applied. Administered Medications: 17:43 Drug: metoCLOPramide IVP 10 mg IVP once; over 1 to 2 minutes Route: IVP; Site: right kd3 antecubital; 18:46 Follow up: Response: No adverse reaction kd3 17:44 Drug: NS 0.9% IV 1000 ml IV at 1 bolus Per protocol; 1000 mL bolus Route: IV; Rate: 1 kd3 bolus; Site: right antecubital; 18:46 Follow up: IV Status: Completed infusion; IV Intake: 1000ml kd3 17:44 Drug: Famotidine IVP 20 mg IVP once; dilute with 10 mL 0.9% NaCl; give over 2 minutes kd3 Route: IVP; Site: right antecubital; 18:45 Follow up: Response: No adverse reaction kd3 18:33 Drug: Dicyclomine IM 20 mg IM once Route: IM; Site: right gluteus; kd3 18:45 Follow up: Response: No adverse reaction kd3 Medication: 18:47 VIS not applicable for this client. kd3 Intake: 18:46 IV: 1000ml; Total: 1000ml. kd3 Outcome: 18:32 Discharge ordered by MD. cp 18:47 Discharged to home ambulatory, kd3 18:47 Condition: stable 18:47 Discharge instructions given to patient, Instructed on discharge instructions, follow up and referral plans. Demonstrated understanding of instructions, follow-up care, medications, Prescriptions given X 1, 18:48 Patient left the ED. kd3 Signatures: Olegario Todd PA PA cp Sims, Lauren, RN RN ld1 Eryn Isbell RN RN kd3 Gloria Leos im Corrections: (The following items were deleted from the chart) 16:21 16:21 PMHx: Unable to Obtain; ld1 ld1
--- NOTE | 2023-01-16 18:32 | EDPHYS ---
Physician Documentation [facility] Name: Dylan Lopes Age: 27 yrs Sex: Female : 1995 Arrival Date: 01/16/2023 Time: 16:07 Bed Treatment Private MD: ED Physician Olegario Peck HPI: 01/16 16:20 This 27 yrs old Black Female presents to ER via Ambulatory with complaints of Abdominal cp Pain, General Weakness, Vomiting. 16:20 The patient presents with abdominal pain. Associated signs and symptoms: Pertinent cp positives: nausea and vomiting. The patient has experienced similar episodes in the past, multiple times. 16:20 Severity of pain: in the emergency department the pain is unchanged despite home cp interventions. Historical: - Allergies: 16:21 No Known Allergies; ld1 - Home Meds: 16:21 None [Active]; ld1 - PMHx: 16:21 None; ld1 - PSHx: 16:21 section; ld1 - Immunization history:: Adult Immunizations up to date. - Social history:: Smoking status: Patient denies any tobacco usage or history of. Patient/guardian denies using alcohol. ROS: 16:25 Constitutional: Positive for poor PO intake, Negative for fever, cp 16:25 Eyes: Negative for injury, pain, redness, and discharge, cp 16:25 ENT: Negative for drainage from ear(s), ear pain, sore throat, difficulty swallowing, difficulty handling secretions, 16:25 Cardiovascular: Negative for chest pain, palpitations, 16:25 Respiratory: Negative for cough, shortness of breath, wheezing, 16:25 Abdomen/GI: Positive for abdominal pain, nausea and vomiting, Negative for diarrhea, constipation, hematemesis, black/tarry stool, rectal bleeding, 16:25 Back: Negative for pain at rest, pain with movement, 16:25 : Negative for urinary symptoms, vaginal bleeding, 16:25 Neuro: Positive for weakness, Negative for altered mental status, headache, 16:25 All other systems are negative, Exam: 16:30 Constitutional: The patient appears in no acute distress, alert, awake, non-toxic, well cp developed, well nourished, uncomfortable, 16:30 Head/Face: Normocephalic, atraumatic. cp 16:30 Eyes: Periorbital structures: appear normal, Conjunctiva: normal, no exudate, no injection, Sclera: no appreciated abnormality, Lids and lashes: appear normal, bilaterally, 16:30 ENT: External ear(s): are unremarkable, Nose: is normal, Mouth: Lips: moist, Oral mucosa: pink and intact, moist, Posterior pharynx: Airway: no evidence of obstruction, patent, 16:30 Chest/axilla: Inspection: normal, 16:30 Cardiovascular: Rate: tachycardic, Rhythm: regular, 16:30 Respiratory: the patient does not display signs of respiratory distress, Respirations: normal, no use of accessory muscles, no retractions, labored breathing, is not present, Breath sounds: are clear throughout, no decreased breath sounds, no stridor, no wheezing, 16:30 Abdomen/GI: Inspection: abdomen appears normal, Bowel sounds: active, all quadrants, cp Palpation: soft, in all quadrants, moderate abdominal tenderness, in the right lower quadrant and left lower quadrant, rebound tenderness, is not appreciated, voluntary guarding, is elicited in the right lower quadrant and left lower quadrant, 16:30 Back: CVA tenderness, is absent, 16:30 Neuro: Orientation: to person, place \T\ time. Mentation: is normal, Motor: moves all fours, strength is normal, Sensation: is normal, Vital Signs: 16:20 Pulse 119; Resp 20; Temp 97.6(O); Weight 71.67 kg; Height 5 ft. 8 in. ; Pain 10/10; ld1 16:20 BP 148 / 91; Pulse Ox 100% on R/A; ld1 17:42 BP 118 / 74; Pulse 67; Resp 16; Pulse Ox 100% on R/A; kd3 18:45 BP 119 / 73; Pulse 71; Resp 19; Pulse Ox 100% on R/A; kd3 16:20 Body Mass Index 24.02 (71.67 kg, 172.72 cm) ld1 16:20 Pain Scale: Adult ld1 MDM: 16:33 Patient medically screened. eliazar 17:00 Differential diagnosis: appendicitis, bowel obstruction, gastritis, non-specific abd cp pain, Ovarian Torsion, pancreatitis, Pyelonephritis, Ureterolithiasis, urinary tract infection. 18:32 Data reviewed: vital signs, nurses notes, lab test result(s). 18:32 I considered the following discharge prescriptions or medication management in the emergency department Medications were administered in the Emergency Department. See MAR. Counseling: I had a detailed discussion with the patient and/or guardian regarding the historical points, exam findings, and any diagnostic results supporting the discharge/admit diagnosis, lab results, radiology results, the need for outpatient follow up, a background investigator, to return to the emergency department if symptoms worsen or persist or if there are any questions or concerns that arise at home. Response to treatment: the patient's symptoms have markedly improved after treatment, and as a result, I will discharge patient. Special discussion: Based on the patient's Hx, exam, and Dx evaluation, there is no indication for emergent surgery or inpatient Tx. It is understood by the patient/guardian that if the Sx's persist or worsen they need to return immediately for re-evaluation. 01/16 16:13 Order name: CBC with Diff; Complete Time: 18:29 ld1 01/16 18:29 Interpretation: Reviewed. 01/16 16:13 Order name: CMP; Complete Time: 18:16 ld1 01/16 18:16 Interpretation: Normal except: BUN 5; TP 8.3; GLOB 4.0. 01/16 16:13 Order name: Lipase; Complete Time: 18:16 ld1 01/16 16:13 Order name: Test, Urine; Complete Time: 17:52 ld1 01/16 16:13 Order name: Urinalysis w/ reflexes; Complete Time: 17:52 ld1 01/16 17:53 Interpretation: Normal except: UCLA Turbid; UPH 8.5; UPROT 1+; URBC 11-20. 01/16 16:21 Order name: UDS; Complete Time: 17:52 01/16 17:53 Interpretation: Normal except: BZO POSITIVE; VARUN POSITIVE; THC POSITIVE. 01/16 16:23 Order name: Magnesium; Complete Time: 17:52 01/16 16:23 Order name: Phosphorus; Complete Time: 17:52 01/16 17:30 Order name: Manual Differential; Complete Time: 18:29 EDMS 01/16 18:29 Interpretation: Reviewed. 01/16 18:16 Order name: CBC Smear Scan; Complete Time: 18:29 EDMS 01/16 18:30 Interpretation: Reviewed. 01/16 16:13 Order name: IV Saline Lock; Complete Time: 17:44 ld1 01/16 16:13 Order name: Labs collected and sent; Complete Time: 17:44 ld1 01/16 17:23 Order name: Labs - recollect needed: recollect chemistries/ hemolyzed; Complete Time: eb 17:44 01/16 18:21 Order name: PO challenge; Complete Time: 18:34 cp Administered Medications: 17:43 Drug: metoCLOPramide IVP 10 mg IVP once; over 1 to 2 minutes Route: IVP; Site: right kd3 antecubital; 18:46 Follow up: Response: No adverse reaction kd3 17:44 Drug: NS 0.9% IV 1000 ml IV at 1 bolus Per protocol; 1000 mL bolus Route: IV; Rate: 1 kd3 bolus; Site: right antecubital; 18:46 Follow up: IV Status: Completed infusion; IV Intake: 1000ml kd3 17:44 Drug: Famotidine IVP 20 mg IVP once; dilute with 10 mL 0.9% NaCl; give over 2 minutes kd3 Route: IVP; Site: right antecubital; 18:45 Follow up: Response: No adverse reaction kd3 18:33 Drug: Dicyclomine IM 20 mg IM once Route: IM; Site: right gluteus; kd3 18:45 Follow up: Response: No adverse reaction kd3 Disposition Summary: 01/16/23 18:32 Discharge Ordered Notes: Location: Home cp Problem: an ongoing problem cp Symptoms: have improved cp Condition: Stable cp Diagnosis - Nausea with vomiting, unspecified cp - Abdominal pain, unspecified cp Followup: cp - With: Gian Villalba MD - When: 2 - 3 days - Reason: Recheck today's complaints Discharge Instructions: - Discharge Summary Sheet cp - Abdominal Pain, Adult cp - Nausea and Vomiting, Adult cp Forms: - Medication Reconciliation Form cp - Thank You Letter cp - Antibiotic Education cp - Prescription Opioid Use cp - Patient Portal Instructions cp - Leadership Thank You Letter cp Prescriptions: - Zofran 4 mg Oral Tablet - take 1 tablet ORAL route every 12 hours As needed; 20 tablet; Refills: 0, cp Product Selection Permitted - dicyclomine 20 mg Oral tablet - take 1 tablet ORAL route 4 times per day; 30 tablet; Refills: 0, Product cp Selection Permitted Signatures: Dispatcher [employer]aa[employer]urance Olegario Odonnell MD MD cha Page, Corey, PA PA cp Botello, Elizabeth eb Sims, Lauren RN RN ld1 Eryn Isbell RN RN kd3 Corrections: (The following items were deleted from the chart) 16:21 16:21 PMHx: Unable to Obtain; ld1 ld1
[2023-01-16] MEDS ORDERED: DICYCLOMINE HCL 20 MG/2 ML AMP IM ONE (18:43)
[2023-01-16 19:14] VITALS: TEMP 97.6; O2SAT 100
[2023-01-16 19:22] VITALS: BP 119/73
== END 2023-01-16 18:48 | disposition home or self-care (01) ==
LOC: ER 16:07
DX: R10.9 Unspecified abdominal pain (principal); R11.2 Nausea with vomiting, unspecified
CPT/HCPCS: 36415; 80053; 80307; 81001; 81025; 83690; 83735; 84100; 85025; 96361; 96372; 96374; 96375; 99284; J0500; J2765; J7030

== ENCOUNTER 2023-03-01 10:07 | Emergency (ER) | payer OTHER ==
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
[2023-03-01] MEDS ORDERED: ONDANSETRON 4 MG (ODT) TAB ONE (10:41)
[2023-03-01 10:57] LABS: Specific Gravity 1.019 (1.005-1.030)
--- NOTE | 2023-03-01 11:29 | EDPHYS ---
Physician Documentation [facility] Name: Dylan Lopes Age: 27 yrs Sex: Female : 1995 Arrival Date: 03/01/2023 Time: 10:07 Bed IW1 Private MD: ED Physician Deon Boswell HPI: 03/01 10:23 This 27 yrs old Black Female presents to ER via Ambulatory with complaints of Vomiting. ms3 10:23 27-year-old female with no past medical history presents to the emergency department ms3 for nausea that began last night. Patient states she began vomiting this morning on her way to work. Patient is unaware if she is . Patient states she is having generalized abdominal/nausea feelings. Patient states this discomfort is a 7/10. Patient denies alleviating or inciting factors. Historical: - Allergies: 10:22 No Known Allergies; iw - PMHx: 10:22 None; iw - PSHx: 10:22 section; iw - Immunization history:: Client reports receiving the 2nd dose of the Covid vaccine. - Social history:: Smoking status: Patient reports the use of cigarette tobacco products, smokes one-half pack cigarettes per day. ROS: 10:23 Constitutional: Negative for fever, and chills. Neck: Negative for injury, pain, and ms3 swelling, Cardiovascular: Negative for chest pain, and palpitations. Respiratory: Negative for shortness of breath, cough, wheezing, and pleuritic chest pain, MS/Extremity: Negative for injury and deformity, Skin: Negative for injury, rash, and discoloration, 10:23 Abdomen/GI: Positive for nausea and vomiting, 10:23 All other systems are negative, Exam: 10:23 Constitutional: This is a well developed, well nourished patient who is awake, alert, ms3 and in no acute distress. Head/Face: Normocephalic, atraumatic. Chest/axilla: Normal chest wall appearance and motion. Nontender with no deformity. Cardiovascular: Regular rate and rhythm with a normal S1 and S2. No gallops, murmurs, or rubs. Normal PMI, no JVD. No pulse deficits. Respiratory: Lungs have equal breath sounds bilaterally, clear to auscultation and percussion. No rales, rhonchi or wheezes noted. No increased work of breathing, no retractions or nasal flaring. Abdomen/GI: Soft, non-tender, with normal bowel sounds. No distension or tympany. No guarding or rebound. No evidence of tenderness throughout. Skin: Warm, dry with normal turgor. Normal color with no rashes, no lesions, and no evidence of cellulitis. MS/ Extremity: Pulses equal, no cyanosis. Neurovascular intact. Full, normal range of motion. Vital Signs: 10:19 BP 112 / 70; Pulse 62; Resp 16; Temp 98.2(O); Pulse Ox 100% ; Weight 58.97 kg; Height 5 iw ft. 8 in. ; 10:19 Body Mass Index 19.77 (58.97 kg, 172.72 cm) iw MDM: 10:23 Differential diagnosis: Nonspecific abd pain, gastritis, . ms3 10:26 Patient medically screened. ms3 11:28 Data reviewed: vital signs, nurses notes, lab test result(s). I considered the ms3 following discharge prescriptions or medication management in the emergency department Medications were administered in the Emergency Department. See MAR. Counseling: I had a detailed discussion with the patient and/or guardian regarding the historical points, exam findings, and any diagnostic results supporting the discharge/admit diagnosis, lab results, the need for outpatient follow up, to return to the emergency department if symptoms worsen or persist or if there are any questions or concerns that arise at home. Special discussion: I discussed with the patient/guardian in detail that at this point there is no indication for admission to the hospital. It is understood, however, that if the symptoms persist or worsen the patient needs to return immediately for re-evaluation. ED course: Discussed negative test with patient. Patient tolerating p.o. after Zofran. Patient to follow-up with primary care physician 2 to 3 days. Patient understands and agrees with plan. All questions were answered. Return precautions discussed include worsening symptoms, or any other concerns. 03/01 10:22 Order name: Test, Urine; Complete Time: 11:19 ms3 Administered Medications: 10:27 Drug: Ondansetron PO 4 mg PO once Route: PO; iw 11:00 Follow up: Response: No adverse reaction iw Disposition Summary: 03/01/23 11:28 Discharge Ordered Notes: Location: Home ms3 Condition: Stable ms3 Diagnosis - Nausea with vomiting, unspecified ms3 Followup: ms3 - With: Private Physician - When: 2 - 3 days - Reason: Recheck today's complaints Discharge Instructions: - Discharge Summary Sheet ms3 - Nausea and Vomiting, Adult ms3 Forms: - Work release form iw - Medication Reconciliation Form ms3 - Thank You Letter ms3 - Antibiotic Education ms3 - Prescription Opioid Use ms3 - Patient Portal Instructions ms3 - Leadership Thank You Letter ms3 Prescriptions: - ondansetron HCl 4 mg Oral tablet - take 1 tablet ORAL route every 8 hours; 15 tablet; Refills: 0, Product ms3 Selection Permitted Signatures: Dispatcher [employer] Ana Pretty RN RN iw Deon Boswell DO DO ms3
--- NOTE | 2023-03-01 11:29 | ER ---
Nurse's Notes [facility] Name: Dylan Lopes Age: 27 yrs Sex: Female : 1995 Arrival Date: 03/01/2023 Time: 10:07 Bed IW1 Private MD: Diagnosis: Nausea with vomiting, unspecified Presentation: 03/01 10:19 Chief complaint: Patient states: Nauseous since last night, vomited once this morning. iw Denies fever/diarrhea. Coronavirus screen: Vaccine status: Patient reports receiving the 2nd dose of the covid vaccine. Ebola Screen: Patient denies travel to an Ebola-affected area in the 21 days before illness onset. Risk Assessment: Do you want to hurt yourself or someone else? Patient reports no desire to harm self or others. Onset of symptoms was February 28, 2023. 10:19 Method Of Arrival: Ambulatory iw 10:19 Acuity: CORONA 3 iw 10:19 Initial Sepsis Screen: Does the patient meet any 2 criteria? No. Patient's initial iw sepsis screen is negative. Does the patient have a suspected source of infection? No. Patient's initial sepsis screen is negative. Triage Assessment: 10:27 General: Appears in no apparent distress. comfortable, Behavior is calm, cooperative, iw appropriate for age. Pain: Denies pain. Neuro: Level of Consciousness is awake, alert, obeys commands, Oriented to person, place, time, situation. Cardiovascular: Patient's skin is warm and dry. Respiratory: Airway is patent Respiratory effort is even, unlabored. GI: Reports nausea. Historical: - Allergies: 10:22 No Known Allergies; iw - PMHx: 10:22 None; iw - PSHx: 10:22 section; iw - Immunization history:: Client reports receiving the 2nd dose of the Covid vaccine. - Social history:: Smoking status: Patient reports the use of cigarette tobacco products, smokes one-half pack cigarettes per day. Vital Signs: 10:19 BP 112 / 70; Pulse 62; Resp 16; Temp 98.2(O); Pulse Ox 100% ; Weight 58.97 kg; Height 5 iw ft. 8 in. ; 10:19 Body Mass Index 19.77 (58.97 kg, 172.72 cm) iw ED Course: 10:09 Patient arrived in ED. mg5 10:12 Deon oBswell DO is Attending Physician. ms3 10:22 Triage completed. iw 10:22 Arm band placed on left wrist. iw 11:48 Ana Beckwith RN is Primary Nurse. iw Administered Medications: 10:27 Drug: Ondansetron PO 4 mg PO once Route: PO; iw 11:00 Follow up: Response: No adverse reaction iw Outcome: 11:28 Discharge ordered by MD. ms3 11:48 Patient left the ED. iw Signatures: Ana Beckwith RN RN iw Deon Boswell DO DO ms3 Solitario Caitlin mg5 Corrections: (The following items were deleted from the chart) 10:22 10:19 Chief complaint: Patient states: Nauseous since last night, vomited once this iw morning. iw 10:24 10:19 58.97 kg; Height 5 ft. 8 in.; BMI: 19.7; iw iw
[2023-03-01 11:53] VITALS: BP 112/70; TEMP 98.2; O2SAT 100
== END 2023-03-01 11:48 | disposition home or self-care (01) ==
LOC: ER 10:07
DX: R11.2 Nausea with vomiting, unspecified (principal); Z72.0 Tobacco use
CPT/HCPCS: 81025; 99282; Q0162

== ENCOUNTER → 2023-03-12 | Emergency (ER) | payer OTHER ==
[~2023-03-12] MED LIST: ACETAMINOPHEN 500 MG TAB ONE; GUAIFENESIN/DM 5 ML UCUP ONE; IBUPROFEN 400 MG TAB ONE; PROMETHAZINE 25 MG TABLET ONE
--- OUTSIDE RECORDS SUMMARY | 2023-03-12 00:50 | XMS REPORT | Continuity of Care Document ---
Author Name Unknown Address [address] [place] [address] [facility] thconnect Address 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 Name Role Phone Visit, [place] Nurse Attending Clinician Norma Patterson Attending Clinician + Encounters Start Date/Time End Date/Time Encounter Type Admission Type Attending Clinicians Care Facility Care Department Encounter ID Source 2020-05-24 14:58:09 2020-05-24 15:06:57 Nurse Visit Visit, [place] Nurse [employer]TEGR[employer]INE[employer] [facility] [id number] 2020-03-01 15:03:57 2020-03-01 15:34:52 Nurse Visit Visit, [place] Nurse [employer] [facility] [id number] 2019-11-30 13:20:31 2019-11-30 14:15:04 Office Visit Norma Cole [employer] [facility] [id number]
[2023-03-12 01:57] LABS: SARS-CoV-2 Antigen Rapid Res Negative (Negative)
[2023-03-12 02:13] LABS: Specific Gravity 1.028 (1.005-1.030)
--- NOTE | 2023-03-12 02:54 | EDPHYS ---
Physician Documentation [facility] Name: Dylan Lopes Age: 27 yrs Sex: Female : 1995 Arrival Date: 03/12/2023 Time: 00:47 Bed 11 Private MD: ED Physician Raul Banks HPI: 03/12 00:56 This 27 yrs old Black Female presents to ER via Unassigned with complaints of sp4 Congestion, Sinus Pain, Nausea. 01:11 Patient presents with 3 days of cough, sore throat, earaches, also chills, subjective sp4 fever, feeling unwell, nasal congestion. Historical: - Allergies: 01:09 No Known Allergies; jb4 - Home Meds: 01:09 None [Active]; jb4 - PMHx: 01:09 None; jb4 - PSHx: 01:09 section; jb4 - Immunization history:: Adult Immunizations not up to date. - Social history:: Smoking status: Patient denies any tobacco usage or history of. Patient uses street drugs, marijuana. - Family history:: not pertinent. ROS: 01:12 Constitutional: Positive subjective fever, chills, sore throat, earaches, sinus pain, sp4 nausea, nasal congestion 01:12 All other systems are negative, Exam: 01:12 Constitutional: This is a well developed, well nourished patient who is awake, alert, sp4 and in no acute distress. Head/Face: Normocephalic, atraumatic. Eyes: Pupils equal round and reactive to light, extra-ocular motions intact. Lids and lashes normal. Conjunctiva and sclera are not injected. Cornea within normal limits. Periorbital areas with no swelling, redness, or edema. ENT: Nares patent. No nasal congestion, positive nasal discharge, positive right tympanic membrane redness, positive left tympanic membrane redness erythema and opacification, positive bilateral pharyngeal erythema, positive posterior pharyngeal erythema Neck: Trachea midline, no thyromegaly or masses palpated, and no cervical lymphadenopathy. Supple, full range of motion without nuchal rigidity, or vertebral point tenderness. Chest/axilla: Normal chest wall appearance and motion. Nontender with no deformity. No lesions are appreciated. Cardiovascular: Regular rate and rhythm with a normal S1 and S2. No gallops, murmurs, or rubs. Normal PMI, no JVD. No pulse deficits. Respiratory: Lungs have equal breath sounds bilaterally, clear to auscultation and percussion. No rales, rhonchi or wheezes noted. No increased work of breathing, no retractions or nasal flaring. Abdomen/GI: Soft, non-tender, with normal bowel sounds. No distension or tympany. No guarding or rebound. No evidence of tenderness throughout. Back: No spinal tenderness. No costovertebral tenderness. Skin: Warm, dry with normal turgor. Normal color with no rashes, no lesions, and no evidence of cellulitis. MS/ Extremity: Pulses equal, no cyanosis. Neurovascular intact. Full, normal range of motion. Neuro: Awake and alert, GCS 15, oriented to person, place, time, and situation. Cranial nerves II-XII grossly intact. Motor strength 5/5 in all extremities. Sensory grossly intact. Psych: Awake, alert, with orientation to person, place and time. Behavior, mood, and affect are within normal limits Vital Signs: 01:06 BP 132 / 94; Pulse 78; Resp 16; Temp 98.4(TE); Pulse Ox 97% on R/A; Weight 59.87 kg; jb4 Height 5 ft. 8 in. (R); 01:06 Body Mass Index 20.07 (59.87 kg, 172.72 cm) jb4 MDM: 00:57 Patient medically screened. sp4 02:52 Differential Diagnosis: Bronchitis Influenza Upper Respiratory Infection Sinusitis sp4 Pharyngitis Otitis Media. Data reviewed: vital signs, nurses notes, lab test result(s), Flu: negative UPT: negative. Consideration of Admission/Observation Escalation of care including admission/observation considered. ED course: Patient has signs of pharyngitis and bilateral otitis also sinusitis. Will prescribe Zithromax for the next 5 days. Dextromethorphan for cough, also ibuprofen for sore throat, also Phenergan as needed for nausea. 03/12 00:57 Order name: SARS RAPID; Complete Time: 02:49 sp4 03/12 00:57 Order name: Influenza Screen (a \T\ B); Complete Time: :49 sp4 03/12 01:11 Order name: Test, Urine; Complete Time: 02:49 sp4 Administered Medications: 01:32 Drug: Ibuprofen PO 800 mg PO once Route: PO; jb4 01:32 Drug: Dextromethorphan-Guaifenesin PO Liquid 10 mg-100 mg/5 mL 10 ml PO once Route: PO; jb4 01:32 Drug: Promethazine PO 25 mg PO once Route: PO; jb4 01:32 Drug: Acetaminophen PO 1000 mg PO once Route: PO; jb4 Disposition Summary: 03/12/23 02:54 Discharge Ordered Notes: Location: Home sp4 Problem: new sp4 Symptoms: have improved sp4 Condition: Stable sp4 Diagnosis - Acute pharyngitis, unspecified sp4 - Acute suppurative otitis media sp4 - Acute upper respiratory infection, unspecified sp4 Followup: sp4 - With: Private Physician - When: 7 - 10 days - Reason: Recheck today's complaints Discharge Instructions: - Discharge Summary Sheet sp4 - Upper Respiratory Infection, Adult, [id number] sp4 Forms: - Patient Portal Instructions sp4 Prescriptions: - dextromethorphan-guaifenesin 10-200 mg Oral capsule - take 2 capsule ORAL route every 6 hours PRN cough; 60 capsule; Refills: 0, sp4 Product Selection Permitted - Ibuprofen 600 mg Oral Tablet - take 1 tablet ORAL route every 6 hours As needed take with food; 30 tablet; sp4 Refills: 0, Product Selection Permitted - Zithromax Z-Markus 250 mg Oral Tablet - take 1 tablet ORAL route as directed for 5 days Day 1 - take two (2) tablets sp4 one time. Day 2, 3, 4 , 5 take one (1) tablet once daily.; 6 tablet; Refills: 0, Product Selection Permitted - promethazine 25 mg Oral Tablet - take 1 tablet ORAL route every 6 hours As needed; 20 tablet; Refills: 0, sp4 Product Selection Permitted Signatures: Dispatcher [employer] Sid Buckner RN RN jb4 Raul Banks MD MD sp4
--- NOTE | 2023-03-12 02:54 | ER ---
Nurse's Notes [facility] Name: Dylan Lopes Age: 27 yrs Sex: Female : 1995 Arrival Date: 03/12/2023 Time: 00:47 Bed 11 Private MD: Diagnosis: Acute pharyngitis, unspecified;Acute suppurative otitis media;Acute upper respiratory infection, unspecified Presentation: 03/12 01:06 Chief complaint: Patient states: I have been feeling sick for the past few days with jb4 congestion, sinus pain, N/V and my body feels sore. Coronavirus screen: At this time, the client does not indicate any symptoms associated with coronavirus-19. Ebola Screen: No symptoms or risks identified at this time. Initial Sepsis Screen: Does the patient meet any 2 criteria? No. Patient's initial sepsis screen is negative. Does the patient have a suspected source of infection? No. Patient's initial sepsis screen is negative. Risk Assessment: Do you want to hurt yourself or someone else? Patient reports no desire to harm self or others. Onset of symptoms was March 12, 2023. Transition of care: patient was not received from another setting of care. 01:06 Method Of Arrival: Ambulatory jb4 01:06 Acuity: CORONA 4 jb4 Historical: - Allergies: 01:09 No Known Allergies; jb4 - Home Meds: 01:09 None [Active]; jb4 - PMHx: 01:09 None; jb4 - PSHx: 01:09 section; jb4 - Immunization history:: Adult Immunizations not up to date. - Social history:: Smoking status: Patient denies any tobacco usage or history of. Patient uses street drugs, marijuana. - Family history:: not pertinent. Screenin:10 [facility] ED Fall Risk Assessment (Adult) History of falling in the last 3 months, jb4 including since admission No falls in past 3 months (0 pts) Confusion or Disorientation No (0 pts). Abuse screen: Denies threats or abuse. Nutritional screening: No deficits noted. Tuberculosis screening: No symptoms or risk factors identified. Assessment: 01:10 General: Appears in no apparent distress. comfortable, Behavior is calm, cooperative, jb4 appropriate for age. Pain: Complains of pain in face Pain does not radiate. Pain currently is 9 out of 10 on a pain scale. Neuro: Level of Consciousness is awake, alert, obeys commands, Oriented to person, place, time, situation. Cardiovascular: Patient's skin is warm and dry. Respiratory: Airway is patent Respiratory effort is even, unlabored, Respiratory pattern is regular, symmetrical. GI: No signs and/or symptoms were reported involving the gastrointestinal system. : No signs and/or symptoms were reported regarding the genitourinary system. EENT: No signs and/or symptoms were reported regarding the EENT system. Derm: Skin is intact, Skin is dry, Skin is normal, Skin temperature is warm. Musculoskeletal: Circulation, motion, and sensation intact. Range of motion: intact in all extremities. 03:11 Reassessment: Patient appears in no apparent distress at this time. Patient and/or jb4 family updated on plan of care and expected duration. Pain level reassessed. Patient is alert, oriented x 3, equal unlabored respirations, skin warm/dry/pink. Vital Signs: 01:06 BP 132 / 94; Pulse 78; Resp 16; Temp 98.4(TE); Pulse Ox 97% on R/A; Weight 59.87 kg; jb4 Height 5 ft. 8 in. (R); 01:06 Body Mass Index 20.07 (59.87 kg, 172.72 cm) jb4 ED Course: 00:49 Patient arrived in ED. jj6 00:56 Raul Banks MD is Attending Physician. sp4 01:09 Triage completed. jb4 01:09 Arm band placed on right wrist. jb4 01:10 Patient has correct armband on for positive identification. Bed in low position. Call jb4 light in reach. Side rails up X 1. 03:11 No provider procedures requiring assistance completed. Patient did not have IV access jb4 during this emergency room visit. Administered Medications: 01:32 Drug: Ibuprofen PO 800 mg PO once Route: PO; jb4 01:32 Drug: Dextromethorphan-Guaifenesin PO Liquid 10 mg-100 mg/5 mL 10 ml PO once Route: PO; jb4 01:32 Drug: Promethazine PO 25 mg PO once Route: PO; jb4 01:32 Drug: Acetaminophen PO 1000 mg PO once Route: PO; jb4 Medication: 01:10 VIS not applicable for this client. jb4 Outcome: 02:54 Discharge ordered by . sp4 03:11 Discharged to home ambulatory, jb4 03:11 Condition: stable 03:11 Discharge instructions given to patient, Instructed on discharge instructions, follow up and referral plans. medication usage, Demonstrated understanding of instructions, follow-up care, medications, Prescriptions given X 4, 03:11 Patient left the ED. jb4 Signatures: Sid Najera RN RN jb4 Aishwarya Urrutia jj6 Raul Banks MD MD sp4
[2023-03-12 04:04] VITALS: BP 132/94; TEMP 98.4; O2SAT 97
== END ==
LOC: ER 00:47
DX: J06.9 Acute upper respiratory infection, unspecified (principal); H66.003 Acute suppurative otitis media without spontaneous rupture of ear drum, bilateral; Z11.52 Encounter for screening for COVID-19
CPT/HCPCS: 36415; 81025; 87804 ×2; 99283; 87811; Q0169

== ENCOUNTER 2023-07-11 16:17 | Emergency (ER) | payer OTHER ==
--- OUTSIDE RECORDS SUMMARY | 2023-07-11 16:23 | XMS REPORT | Continuity of Care Document ---
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 Unknown Completed [facility] Varicella (varivax)(chicken pox) Unknown Completed [facility] Varicella (varivax)(chicken pox) Unknown Completed [facility] SARS-COV-2 COVID-19 PFIZER VACCINE Unknown Completed [facility] Influenza Virus Vaccine Quad IM 3+ YRS Unknown Completed [facility] HPV9 Unknown Completed [facility] HPV9 Unknown Completed [facility] HPV9 Unknown Completed [facility] Influenza Virus Vaccine Quad .5 mL IM 6+ MO (FLUZONE/FLULAVAL/FL UARIX) Unknown Completed [facility] TD, NOS Unknown Completed [facility] Influenza Virus Vaccine Quad IM, Preserv and ABX Free 6 MO-64 YRS (FLUCELVAX) Unknown Completed [facility] DTaP, Unspecified Formulation Unknown Completed [facility] DTaP, Unspecified Formulation Unknown Completed [facility] DTaP, Unspecified Formulation Unknown Completed [facility] DTaP, Unspecified Formulation Unknown Completed [facility] DTaP, Unspecified Formulation Unknown Completed [facility] Hep B, Adol or Pedi Dosage Unknown Completed [facility] Hep B, Adol or Pedi Dosage Unknown Completed [facility] Hep B, Adol or Pedi Dosage Unknown Completed [facility] Haemophilus influenzae type b vaccine, conjugate unspecified formulation Unknown Completed [facility] Haemophilus influenzae type b vaccine, conjugate unspecified formulation Unknown Completed [facility] Haemophilus influenzae type b vaccine, conjugate unspecified formulation Unknown Completed [facility] HIB 4 Dose Schedule Unknown Completed [facility] Meningococcal Polysaccharide (groups A, C, Y and W-135) conjugate vaccine (MCV4P) Unknown Completed [facility] MMR Unknown Completed [facility] MMR Unknown Completed [facility] IPV Unknown Completed [facility] IPV Unknown Completed [facility] IPV Unknown Completed [facility] IPV Unknown Completed [facility] TDAP Unknown Completed [facility] Varicella (varivax)(chicken pox) Unknown Completed [facility] Varicella (varivax)(chicken pox) Unknown Completed [facility] SARS-COV-2 COVID-19 PFIZER VACCINE Unknown Completed [facility] Influenza Virus Vaccine Quad IM 3+ YRS Unknown Completed [facility] HPV9 Unknown Completed [facility] HPV9 Unknown Completed [facility] HPV9 Unknown Completed [facility] Influenza Virus Vaccine Quad .5 mL IM 6+ MO (FLUZONE/FLULAVAL/FL UARIX) Unknown Completed [facility] TD, NOS Unknown Completed [facility] Influenza Virus Vaccine Quad IM, Preserv and ABX Free 6 MO-64 YRS (FLUCELVAX) Unknown Completed [facility] DTaP, Unspecified Formulation Unknown Completed [facility] DTaP, Unspecified Formulation Unknown Completed [facility] DTaP, Unspecified Formulation Unknown Completed [facility] DTaP, Unspecified Formulation Unknown Completed [facility] DTaP, Unspecified Formulation Unknown Completed [facility] Hep B, Adol or Pedi Dosage Unknown Completed [facility] Hep B, Adol or Pedi Dosage Unknown Completed [facility] Hep B, Adol or Pedi Dosage Unknown Completed [facility] Haemophilus influenzae type b vaccine, conjugate unspecified formulation Unknown Completed [facility] Haemophilus influenzae type b vaccine, conjugate unspecified formulation Unknown Completed [facility] Haemophilus influenzae type b vaccine, conjugate unspecified formulation Unknown Completed [facility] HIB 4 Dose Schedule Unknown Completed [facility] Meningococcal Polysaccharide (groups A, C, Y and W-135) conjugate vaccine (MCV4P) Unknown Completed [facility] MMR Unknown Completed [facility] MMR Unknown Completed [facility] IPV Unknown Completed [facility] IPV Unknown Completed [facility] IPV Unknown Completed [facility] IPV Unknown Completed [facility] TDAP Unknown Completed [facility] Varicella (varivax)(chicken pox) Unknown Completed [facility] Varicella (varivax)(chicken pox) Unknown Completed [facility] SARS-COV-2 COVID-19 PFIZER VACCINE Unknown Completed [facility] Influenza Virus Vaccine Quad IM 3+ YRS Unknown Completed [facility] HPV9 Unknown Completed [facility] HPV9 Unknown Completed [facility] HPV9 Unknown Completed [facility] Influenza Virus Vaccine Quad .5 mL IM 6+ MO (FLUZONE/FLULAVAL/FL UARIX) Unknown Completed [facility] TD, NOS Unknown Completed [facility] Influenza Virus Vaccine Quad IM, Preserv and ABX Free 6 MO-64 YRS (FLUCELVAX) Unknown Completed [facility] DTaP, Unspecified Formulation Unknown Completed [facility] DTaP, Unspecified Formulation Unknown Completed [facility] DTaP, Unspecified Formulation Unknown Completed [facility] DTaP, Unspecified Formulation Unknown Completed [facility] DTaP, Unspecified Formulation Unknown Completed [facility] Hep B, Adol or Pedi Dosage Unknown Completed [facility] Hep B, Adol or Pedi Dosage Unknown Completed [facility] Hep B, Adol or Pedi Dosage Unknown Completed [facility] Haemophilus influenzae type b vaccine, conjugate unspecified formulation Unknown Completed [facility] Haemophilus influenzae type b vaccine, conjugate unspecified formulation Unknown Completed [facility] Haemophilus influenzae type b vaccine, conjugate unspecified formulation Unknown Completed [facility] HIB 4 Dose Schedule Unknown Completed [facility] Meningococcal Polysaccharide (groups A, C, Y and W-135) conjugate vaccine (MCV4P) Unknown Completed [facility] MMR Unknown Completed [facility] MMR Unknown Completed [facility] IPV Unknown Completed [facility] IPV Unknown Completed [facility] IPV Unknown Completed [facility] IPV Unknown Completed [facility] TDAP Unknown Completed [facility] Varicella (varivax)(chicken pox) Unknown Completed [facility] Varicella (varivax)(chicken pox) Unknown Completed [facility] SARS-COV-2 COVID-19 PFIZER VACCINE Unknown Completed [facility] Vital Signs Vital Name Observation Time Observation Value Comments S ource Systolic blood pressure 2023-06-03 20:16:00 133 mm[Hg] [facility] Diastolic blood pressure 2023-06-03 20:16:00 79 mm[Hg] [facility] Heart rate 2023-06-03 20:16:00 79 [facility] Body temperature 2023-06-03 20:16:00 36.72 Esther [facility] Respiratory rate 2023-06-03 20:16:00 17 /min [facility] Body height 2023-06-03 20:16:00 172.7 cm [facility] Body weight 2023-06-03 20:16:00 73.846 kg [facility] BMI 2023-06-03 20:16:00 24.75 kg/m2 [facility] Systolic blood pressure 2023-05-22 13:51:00 117 mm[Hg] [place] [facility] Diastolic blood pressure 2023-05-22 13:51:00 66 mm[Hg] [facility] Heart rate 2023-05-22 13:51:00 66 /min [facility] Body temperature 2023-05-22 13:51:00 36.33 Esther [facility] Respiratory rate 2023-05-22 13:51:00 17 /min [facility] Body height 2023-05-22 13:51:00 172.7 cm [facility] Body weight 2023-05-22 13:51:00 67.722 kg [facility] BMI 2023-05-22 13:51:00 22.70 kg/m2 [facility] Systolic blood pressure 2023-05-04 20:02:00 115 mm[Hg] [facility] Diastolic blood pressure 2023-05-04 20:02:00 71 mm[Hg] [facility] Heart rate 2023-05-04 20:02:00 72 /min [facility] Body temperature 2023-05-04 20:02:00 36.28 Esther [facility] Respiratory rate 2023-05-04 20:02:00 19 /min [facility] Body height 2023-05-04 20:02:00 172.7 cm [facility] Body weight 2023-05-04 20:02:00 70.489 kg [facility] BMI 2023-05-04 20:02:00 23.63 kg/m2 [facility] Systolic blood pressure 2022-10-10 19:28:00 124 mm[Hg] [facility] Diastolic blood pressure 2022-10-10 19:28:00 68 mm[Hg] [facility] Heart rate 2022-10-10 19:28:00 60 /min [facility] Body temperature 2022-10-10 19:28:00 35.72 Esther [facility] Respiratory rate 2022-10-10 19:28:00 18 /min [facility] Body height 2022-10-10 19:28:00 172.7 cm [facility] Body weight 2022-10-10 19:28:00 77.61 kg [facility] BMI 2022-10-10 19:28:00 26.02 kg/m2 [facility] Systolic blood pressure 2022-07-30 21:35:00 111 mm[Hg] [facility] Diastolic blood pressure 2022-07-30 21:35:00 71 mm[Hg] [facility] Heart rate 2022-07-30 21:35:00 75 /min [facility] Body temperature 2022-07-30 21:35:00 37 Esther [facility] Respiratory rate 2022-07-30 21:35:00 18 /min [facility] Body height 2022-07-30 21:35:00 172.7 cm [facility] Body weight 2022-07-30 21:35:00 79.062 kg [facility] BMI 2022-07-30 21:35:00 26.50 kg/m2 [facility] Systolic blood pressure 2022-02-20 19:11:00 123 mm[Hg] [facility] Diastolic blood pressure 2022-02-20 19:11:00 84 mm[Hg] [facility] Heart rate 2022-02-20 19:11:00 66 /min [facility] Body temperature 2022-02-20 19:11:00 36.83 Esther [facility] Respiratory rate 2022-02-20 19:11:00 18 /min [facility] Body height 2022-02-20 19:11:00 172.7 cm [facility] Body weight 2022-02-20 19:11:00 74.163 kg [facility] BMI 2022-02-20 19:11:00 24.86 kg/m2 [facility] Systolic blood pressure 2022-01-14 02:52:52 116 mm[Hg] [facility] Diastolic blood pressure 2022-01-14 02:52:52 80 mm[Hg] [facility] Heart rate 2022-01-14 02:52:52 84 /min [facility] Respiratory rate 2022-01-14 02:52:52 18 /min [facility] Oxygen saturation in Arterial blood by Pulse oximetry 2022-01-14 02:52:52 99 /min [facility] Body temperature 2022-01-14 01:44:00 37.28 Esther [facility] Body height 2022-01-14 01:44:00 172.7 cm [facility] Body weight 2022-01-14 01:44:00 72.576 kg [facility] BMI 2022-01-14 01:44:00 24.33 kg/m2 [facility] Systolic blood pressure 2021-08-15 04:30:12 124 mm[Hg] [facility] Diastolic blood pressure 2021-08-15 04:30:12 75 mm[Hg] [facility] Heart rate 2021-08-15 04:30:12 92 /min [facility] Respiratory rate 2021-08-15 04:30:12 16 /min [facility] Oxygen saturation in Arterial blood by Pulse oximetry 2021-08-15 04:30:12 100 /min [facility] Body temperature 2021-08-15 02:47:00 36.94 Esther [facility] Body height 2021-08-15 02:47:00 172.7 cm [facility] Body weight 2021-08-15 02:47:00 65.772 kg [facility] BMI 2021-08-15 02:47:00 22.05 kg/m2 [facility] Procedures Procedure Date / Time Performed Performing Clinician Source POCT URINALYSIS 2023-06-03 20:21:00 Norma Cole [facility] SCANNED LAB RESULTS 2023-05-22 06:01:00 Doctor U nassigned, [place] [facility] FIRST TRIMESTER ULTRASOUND 2023-05-05 18:02:00 Norma Cole [facility] GC & CHLAMYDIA AMPLIFIED ASSAY 2023-05-04 21:10:00 Norma Cole [facility] GLUCOSE 1 HOUR POST PRANDIAL 2023-05-04 21:07:00 Norma Cole [facility] CBC WITH DIFF 2023-05-04 21:07:00 Norma Cole [facility] HEPATITIS B SURFACE ANTIGEN 2023-05-04 21:07:00 Norma Cole [facility] HB ABO GROUPING 2023-05-04 21:07:00 Norma Cole [facility] HIV 1/2 AG-AB WITH REFLEX 2023-05-04 21:07:00 Norma Cole [facility] SYPHILIS IGG/IGM 2023-05-04 21:07:00 Constantino Cole [facility] ASSIGNMENT OF BENEFITS 2023-05-04 19:07:59 Docto r Unassigned, [place] [facility] DISCLOSURE AND CONSENT, MEDICAL AND SURGICAL PROCEDURES 2022-10-10 05:01:00 Doctor Unassigned, [place] [facility] HIV 1/2 AG-AB WITH REFLEX 2022-02-20 19:45:00 Norma Cole [facility] PAP SMEAR-LIQUID BASED-CP 2022-02-20 19:45:00 Norma Cole [facility] FLU VACC ([id number]), 6 MO-64 YRS, .5ML, IM, QUAD (FLUCELVAX) 2022-02-20 19:28:14 Norma Cole [facility] ASSIGNMENT OF BENEFITS 2022-02-20 19:01:13 Docto r Unassigned, [place] [facility] RAPID INFLUENZA A/B 2022-01-14 01:53:00 Jen Mora [facility] COVID-19 (ID NOW RAPID TESTING) 2022-01-14 01:53:00 Wm Mora [facility] NOTICE OF PRIVACY PRACTICES 2022-01-14 01:38:23 Doctor Unassigned, [place] [facility] CONSENT/REFUSAL FOR DIAGNOSIS AND TREATMENT 2022-01-14 01:37:16 Doctor Unassigned, [place] [facility] CT ABDOMEN PELVIS W CONTRAST 2021-08-15 04:52:04 Prabhakar Gupta [facility] POCT TEST 2021-08-15 04:30:00 Prabhakar Gupta [facility] URINALYSIS 2021-08-15 04:24:00 Prabhakar Gupta [facility] LIPASE 2021-08-15 03:38:00 Prabhakar Gupta [facility] COMP. METABOLIC PANEL ([id number]) 2021-08-15 03:38:00 Prabhakar Gupta [facility] CBC WITH DIFF 2021-08-15 03:38:00 [facility]akar Gu[facility] 2021-08-15 03:38:00 Genie Gupta [facility] CONSENT/REFUSAL FOR DIAGNOSIS AND TREATMENT 2021-08-15 02:34:04 Doctor Unassigned, [place] [facility] Encounters Start Date/Time End Date/Time Encounter Type Admission Type Attending Clinicians Care Facility Care Department Encounter ID Source 2019-08-17 13:20:00 Inpatient [facility] [id number] 2023-06-17 15:30:00 2023-06-17 15:30:00 Outpatient R NORMA COLE [facility] [id number] [facility] 2023-06-09 10:40:00 2023-06-09 10:40:00 Outpatient R [facility] [id number] [facility] 2023-06-05 13:00:00 2023-06-05 13:00:00 Outpatient NORMA STEINER [facility] [id number] [facility] 2023-06-03 15:30:00 2023-06-03 15:55:38 Outpatient NORMA STEINER [facility] [id number] [facility] 2023-06-03 15:30:00 2023-06-03 15:55:38 Routine Visit Norma Cole [facility] 1.840.114 350.1.13.10 [id number] [id number] [facility] 2023-06-02 00:00:00 2023-06-02 00:00:00 Telephone DouglasEvanNorma C [facility] 1.840.114 350.1.13.10 [id number] [id number] [facility] 2023-05-22 07:45:00 2023-05-22 08:24:16 Outpatient R NORMA COLE [facility] [id number] [facility] 2023-05-22 07:45:00 2023-05-22 08:24:16 Routine Visit Norma Cole Brenda A [facility] 1.840.114 350.1.13.10 4.2.7.2.686 [id number] [facility] 2023-05-22 07:45:00 2023-05-22 07:45:00 Outpatient GERDA SMITH [facility] [id number] [facility] 2023-05-22 00:00:00 2023-05-22 00:00:00 Orders Only Doctor Unassigned, [place] [facility] 1.840.114 350.1.13.10 4.2.7.2.686 [id number] [facility] 2023-05-19 16:00:00 2023-05-19 16:00:00 Outpatient GERDA SMITH [facility] [id number] [facility] 2023-05-19 15:15:00 2023-05-19 15:15:00 Outpatient R GERDA DAVIS [facility] [id number] [facility] 2023-05-15 00:00:00 2023-05-15 00:00:00 Telephone Norma Cole [facility] 1..840.114 350.1.13.10 4.2.7.2.686 [id number] [facility] 2023-05-05 11:30:00 2023-05-05 12:11:50 Outpatient P ARNEL VALLES [facility] [id number] [facility] 2023-05-05 11:30:00 2023-05-05 12:11:50 Workshop Manager Visit Ultrasound, Arnel Armenta [facility] 1..840.114 350.1.13.10 4.2.7.2.686 [id number] [facility] 2023-05-05 00:00:00 2023-05-05 00:00:00 Abstract Norma Cole [facility] 1..840.114 350.1.13.10 4.2.7.2.686 [id number] [facility] 2023-05-04 13:45:00 2023-05-04 14:55:59 Outpatient R NORMA COLE [facility] [id number] [facility] 2023-05-04 13:45:00 2023-05-04 14:55:59 Initial Visit Norma Cole [facility] 1..840.114 350.1.13.10 4.2.7.2.686 [id number] [facility] 2023-05-04 00:00:00 2023-05-04 00:00:00 Orders Only Doctor Unassigned, [place] [facility] 1..840.114 350.1.13.10 4.2.7.2.686 [id number] [id number] [facility] 2023-04-29 13:45:00 2023-04-29 13:45:00 Outpatient R GERDA DAVIS [facility] [id number] [facility] 2023-04-29 13:15:00 2023-04-29 13:15:00 Outpatient R GERDA DAVIS [facility] [id number] [facility] 2023-04-09 08:00:00 2023-04-09 08:00:00 Outpatient R [facility] [id number] [facility] 2023-02-20 13:00:00 2023-02-20 13:00:00 Outpatient R NORMA COLE [facility] [id number] [facility] 2023-01-05 14:00:00 2023-01-05 14:00:00 Outpatient R NORMA COLE [facility] [id number] [facility] 2023-01-02 13:00:00 2023-01-02 13:00:00 Outpatient R GERDA DAVIS [facility] [id number] [facility] 2022-10-10 14:30:00 2022-10-10 15:06:20 Outpatient R NORMA COLE [facility] [id number] [facility] 2022-10-10 14:30:00 2022-10-10 15:06:20 Office Visit Norma Cole [facility] 1..840.114 350.1.13.10 4.2.7.2.686 [id number] [facility] 2022-10-10 00:00:00 2022-10-10 00:00:00 Orders Only Doctor Unassigned, [place] [facility] 1.840.114 350.1.13.10 4.2.7.2.686 [id number] [id number] [facility] 2022-10-09 00:00:00 2022-10-09 00:00:00 Telephone Norma Cole [facility] 1.840.114 350.1.13.10 4.2.7.2.686 [id number] 107 [id number] [facility] 2022-09-26 00:00:00 2022-09-26 00:00:00 Telephone Norma Cole [facility] 1.0.114 350.1.13.10 4.2.7.2.686 [id number] [facility] 2022-08-22 16:00:00 2022-08-22 16:00:00 Outpatient R SAYM MCKINNEY [facility] [id number] [facility] 2022-07-30 16:30:00 2022-07-30 17:41:36 Outpatient R ELYSE PERALTA JORDYN [facility] [id number] [facility] 2022-07-30 16:30:00 2022-07-30 17:41:36 Office Visit Elyse Peralta [facility]ILD [facility] 1.0.114 350.1.13.10 4.2.7.2.686 [id number] [facility] 2022-07-29 00:00:00 2022-07-29 00:00:00 Telephone Norma Cole [facility] 1.840.114 350.1.13.10 4.2.7.2.686 [id number] 107 [id number] [facility] 2022-02-20 13:00:00 2022-02-20 14:41:13 Outpatient R NORMA COLE [facility] [id number] [facility] 2022-02-20 13:00:00 2022-02-20 14:41:13 Office Visit Norma Cole [facility] 1.2840.114 350.1.13.10 4.2.7.2.686 [id number] [facility] 2022-02-20 00:00:00 2022-02-20 00:00:00 Orders Only Doctor Unassigned, [place] [facility] 1.284.114 350.1.13.10 4.2.7.2.686 [id number] [id number] [facility] 2022-01-13 20:47:00 2022-01-13 22:09:00 Emergency X Luís MANLEY [facility] ERT [id number] [facility] 2022-01-13 20:47:00 2022-01-13 22:09:00 Emergency Luís Manley [facility] 1.2840.114 350.1.13.10 4.2.7.2.686 [id number] [facility] 2021-08-14 21:38:00 2021-08-15 02:10:00 Emergency X PRABHAKAR GUPTA [facility] ERT [id number] [facility] 2021-08-14 21:38:00 2021-08-15 02:10:00 Emergency Prabhakar Gupta [facility] 1.2840.114 350.1.13.10 4.2.7.2.686 [id number] [facility] 2021-08-08 12:24:00 2021-08-08 12:59:00 Emergency X PADMA MCKINNEY [facility] ERT [id number] [facility] 2021-08-08 12:24:00 2021-08-08 12:59:00 Emergency Padma Mckinney [facility] 1.2840.114 350.1.13.10 4.2.7.2.686 [id number] [facility] 2021-08-08 00:00:00 2021-08-08 00:00:00 Transition of Care [place] Hunter 1.2.840.114 350.1.13.10 4.2.7.2.686 [id number] [facility] 2021-08-03 00:30:00 2021-08-07 17:00:00 Hospital Encounter Prabhakar Gupta Amy [facility] 1..114 350.1.13.10 4.2.7.2.686 [id number] [facility] 2021-08-03 00:30:00 2021-08-07 17:00:00 Inpatient X ESTEFANI LESLIE [facility] STR [id number] [facility] 2021-08-03 00:29:16 2021-08-03 00:29:16 Outpatient R PRABHAKAR GUPTA [facility] STR [id number] [facility] 2021-05-02 16:54:00 2021-05-02 18:55:00 Emergency X LEIA LOPEZ [facility] ERT [id number] [facility] 2021-05-02 16:54:00 2021-05-02 18:55:00 Emergency Leia Lopez G [facility] 1.2.114 350.1.13.10 4.2.7.2.686 [id number] [id number] [facility] 2020-12-03 12:54:13 2020-12-03 13:56:14 Office Visit Norma Cole [facility] 1.2.840.114 350.1.13.10 4.2.7.2.686 [id number] [facility] 2020-12-03 13:15:00 2020-12-03 13:15:00 Outpatient R NORMA COLE [facility] [id number] [facility] 2020-12-03 00:00:00 2020-12-03 00:00:00 Orders Only Doctor Unassigned, [place] [facility] 1.2.840.114 350.1.13.10 4.2.7.2.686 [id number] [id number] [facility] 2020-12-03 00:00:00 2020-12-03 00:00:00 Orders Only Doctor Unassigned, [place] [facility] 1.2.840.114 350.1.13.10 4.2.7.2.686 [id number] [id number] [facility] 2020-11-19 08:28:15 2020-11-19 09:04:26 Office Visit Norma Cole [facility] 1.2.840.114 350.1.13.10 4.2.7.2.686 [id number] 107 [id number] [facility] 2020-11-19 08:28:15 2020-11-19 09:04:26 Office Visit Norma Cole [facility] 1.2.840.114 350.1.13.10 4.2.7.2.686 [id number] 107 [id number] [facility] 2020-11-19 08:30:00 2020-11-19 08:30:00 Outpatient R NORMA COLE [facility] [id number] [facility] 2020-11-19 08:30:00 2020-11-19 08:30:00 Outpatient R NORMA COLE [facility] [id number] [facility] 2020-11-19 00:00:00 2020-11-19 00:00:00 Orders Only Doctor Unassigned, [place] [facility] 1.2.840.114 350.1.13.10 4.2.7.2.686 [id number] [id number] [facility] 2020-11-19 00:00:00 2020-11-19 00:00:00 Orders Only Doctor Unassigned, [place] [facility] 1.2.840.114 350.1.13.10 4.2.7.2.686 [id number] [id number] [facility] 2020-11-08 15:30:00 2020-11-08 15:30:00 Outpatient R [facility] [id number] [facility] 2020-11-07 10:00:00 2020-11-07 10:00:00 Outpatient R NORMA COLE [facility] [id number] [facility] 2020-11-07 00:00:00 2020-11-07 00:00:00 Telephone Norma Cole [facility] 1..840.114 350.1.13.10 4.2.7.2.686 [id number] 107 [id number] [facility] 2020-10-30 00:00:00 2020-10-30 00:00:00 Telephone Norma Cole [facility] 1.2.840.114 350.1.13.10 4.2.7.2.686 [id number] 107 [id number] [facility] 2020-08-21 16:00:00 2020-08-21 16:00:00 Outpatient R NORMA COLE [facility] [id number] [facility] 2020-08-16 14:46:36 2020-08-16 15:01:36 Nurse Visit Visit, [facility] Nurse Norma Cole [facility] 1.2.840.114 350.1.13.10 4.2.7.2.686 [id number] 107 [id number] [facility] 2020-08-16 15:00:00 2020-08-16 15:00:00 Outpatient R NORMA COLE [facility] [id number] [facility] 2020-08-16 14:30:00 2020-08-16 14:30:00 Outpatient R [facility] [id number] [facility] 2020-05-24 14:58:09 2020-05-24 15:06:57 Nurse Visit Visit, Norma Griffin [facility] 1.2.840.114 350.1.13.10 4.2.7.2.686 [id number] [facility] 2020-05-24 14:58:09 2020-05-24 15:06:57 Nurse Visit Visit, Rizwana Carter [facility] 1.2840.114 350.1.13.10 4.2.7.2.686 [id number] 107 [id number] 2020-05-24 15:00:00 2020-05-24 15:00:00 Outpatient R [facility] [id number] [facility] 2020-03-01 15:03:57 2020-03-01 15:34:52 Nurse Visit Visit, Norma Griffin [facility] 1.2.840.114 350.1.13.10 4.2.7.2.686 [id number] 107 [id number] [facility] 2020-03-01 15:03:57 2020-03-01 15:34:52 Nurse Visit Visit, Rizwana Carter [facility] 1.2.840.114 350.1.13.10 4.2.7.2.686 [id number] 107 [id number] 2020-03-01 15:00:00 2020-03-01 15:00:00 Outpatient R [facility] [id number] [facility] 2020-03-01 15:00:00 2020-03-01 15:00:00 Outpatient R PAULINEHUGOCOLIN NORMA [facility] [id number] [facility] 2020-02-22 13:30:00 2020-02-22 13:30:00 Outpatient R [facility] [id number] [facility] 2019-11-30 13:20:31 2019-11-30 14:15:04 Office Visit Norma Cole [facility] 1.2.840.114 350.1.13.10 4.2.7.2.686 [id number] 107 [id number] [facility] 2019-11-30 13:20:31 2019-11-30 14:15:04 Office Visit Norma Cole [facility] 1.2.840.114 350.1.13.10 4.2.7.2.686 [id number] 107 [id number] 2019-11-30 13:30:00 2019-11-30 13:30:00 Outpatient R NORMA COLE [facility] [id number] [facility] 2019-11-23 13:50:16 2019-11-23 15:50:06 Office Visit Norma Cole [facility] 1.2.840.114 350.1.13.10 4.2.7.2.686 [id number] 107 [id number] [facility] 2019-11-23 13:45:00 2019-11-23 13:45:00 Outpatient R NORMA COLE [facility] [id number] [facility] 2019-11-23 00:00:00 2019-11-23 00:00:00 Orders Only Doctor Unassigned, [place] [facility] 1.2.840.114 350.1.13.10 4.2.7.2.686 [id number] [id number] [facility] 2019-11-22 15:45:00 2019-11-22 15:45:00 Outpatient R PAULINEHUGONORMA SHAW [facility] [id number] [facility] 2019-11-21 00:00:00 2019-11-21 00:00:00 Telephone Norma Cole [facility] 1.2.840.114 350.1.13.10 4.2.7.2.686 [id number] 107 [id number] [facility] Results Test Description Test Time Test Comments Results Result Co mments Source [facility] WITH [id number] 09:03:00* Test Item Value Reference Range Interpretation Comme [facility] HIV Semi-quantitative (test code = 13126-6) Negative Negative CYNTHIA (test code = CYNTHIA) Non-reactive for HIV-1 antigen and HIV-1/HIV-2 antibodies. ?No laboratory evidence of HIV infection. ?Repeat in 2-4 weeks if acute HIV infection is suspected. [facility] 1/2 AG-AB WITH [id number] 09:03:00* Test Item Value Reference Range Interpretation Comme [facility] HIV Semi-quantitative (test code = 26715-8) Negative Negative CYNTHIA (test code = CYNTHIA) Non-reactive for HIV-1 antigen and HIV-1/HIV-2 antibodies. ?No laboratory evidence of HIV infection. ?Repeat in 2-4 weeks if acute HIV infection is suspected. [facility] [id number] 04:30:00* Test Item Value Reference Range Interpretation Comme nts POCT PREG (test code = 1605) Negative On board controls acceptable with C Line (test code = 3574) Positive POCT PREG LOT # (test code = 3575) [id number] POCT PREG TEST DATE ( test code = 3576) 01/20/23 Lab Interpretation (test cod e = 41490-3) Normal [facility] (37399)2021-08-15 04:03:36* Test Item Value Reference Range Interpretation Comme nts NA (test code = 5391595879) 139 mmol/L 135-145 K (test code = 4797368742) 3.9 mmol/L 3.5-5.0 CL (test code = 6822704429) 102 mmol/L 98-108 CO2 TOTAL (test code = 4764801580) 28 mmol/L 23-31 AGAP (test code = 8948950773) 2-16 BUN (test code = 3969651295) 8 mg/dL 7-23 GLUCOSE (test code = 6773977503) 113 mg/dL 70-110 H CREATININE (test code = 9344182948) 0.50 mg/dL 0.50-1.04 TOTAL BILI (test code = 0404941331) 0.5 mg/dL 0.1-1.1 CALCIUM (test code = 7616305532) 9.0 mg/dL 8.6-10.6 T PROTEIN (test code = 6468296122) 7.4 g/dL 6.3-8.2 ALBUMIN (test code = 4303378746) 4.4 g/dL 3.5-5.0 ALK PHOS (test code = 9160727808) 103 U/L 34-122 ALTv (test code = 1742-6) 28 U/L 5-35 AST(SGOT) (test code = 9792473965) 40 U/L 13-40 eGFR (test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
[2023-07-11] MEDS ORDERED: KETOROLAC 30 MG/ML INJ ONE (16:57)
[2023-07-11] MEDS ORDERED: NA CHLORIDE 0.9% 1,000 ML ONE (16:57)
[2023-07-11] MEDS ORDERED: ONDANSETRON 4 MG/2 ML VIAL ONE (16:57)
[2023-07-11 17:20] LABS: Absolute Lymphocytes (CBC) 1.1 K/uL (0.7-4.9); Absolute Monocytes 0.4 K/uL (0.1-1.3); Absolute Neutrophil 3.3 K/uL (1.8-8.0); Basophils % 0.8 % (0-1.3); Eosinophils % 0.6 % (0-4.4); Hematocrit 42.2 % (36.0-45.0); Hemoglobin 14.1 g/dL (12.0-15.0); Lymphocytes % 21.6 % (15.3-44.8); MCH 31.4 pg (27.0-35.0); MCHC 33.3 g/dL (32.0-36.0); MCV 94.2 fL (80-100); Monocytes % 9.1 % (3.3-12.3); Neutrophils % 67.9 % (41.7-73.7); Platelets 184 thou/uL (152-406); RBC Red Blood Cell Count 4.48 M/uL (3.86-4.86); Red Cell Distribution Width 13.2 % (12.1-15.2)
[2023-07-11 17:29] LABS: Specific Gravity 1.024 (1.005-1.030)
[2023-07-11 17:40] LABS: Urine Bacteria None Seen /HPF (<20); Urine Microscopic Reflex YN ORDER UMIC; Urine Mucus 2+ /HPF (None Seen); Urine RBC <5 /HPF (None Seen); Urine WBC <5 /HPF (<5)
[2023-07-11 17:42] LABS: Albumin 3.9 g/dL (3.4-5.0); Anion Gap 7.7 mEq/L (5.0-15.0); Bilirubin Total 0.5 mg/dL (0.2-1.0); Globulin 3.8 g/dL (2.3-3.5); Potassium 3.7 mEq/L (3.5-5.1); Protein, Total 7.7 g/dL (6.4-8.2)
[2023-07-11 17:45] LABS: Specific Gravity 1.024 (1.005-1.030); Urine Bilirubin NEGATIVE (Negative); Urine Blood Negative (Negative); Urine Clarity Turbid (Clear); Urine Color Light-Yellow (Yellow); Urine Glucose NEGATIVE (Negative); Urine Ketones NEGATIVE (Negative); Urine Nitrite NEGATIVE (Negative); Urine Protein 1+ (Negative); Urine Urobilinogen Normal (Normal); Urine pH 8.5 (5.0-7.0)
--- NOTE | 2023-07-11 18:51 | RAD REPORT ---
EXAM DESCRIPTION: CT - Abdomen Pelvis W Contrast - 07/11/2023 6:03 pm CLINICAL HISTORY: ABD PAIN COMPARISON: Abdomen Pelvis W Contrast dated 01/03/2023; Abdomen Pelvis W Contrast dated 3; CT ABD PELVIS W CONTRAST dated 09/05/2013 TECHNIQUE: Thin cut axial CT imaging of the abdomen and pelvis was performed following intravenous a dministration of iodinated contrast. Multiplanar reformats were generated and reviewed. All CT scans are performed using dose optimization technique as appropriate and may include automated exposure control or mA/KV adjustment according to patient size. FINDINGS: No suspicious findings in the lung bases. The liver, spleen, adrenal glands, and pancreas show no suspicious findings. Gallbladder and biliary tree are also without suspicious finding. 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 No hydronephrosis or suspicious renal mass. No rad iopaque calculi. No dilated bowel loops or bowel wall thickening. No free air, free fluid or inflammatory stranding. N o hernia, mass or bulky lymphadenopathy. Trace fluid within the endometrial cavity, similar to the pr ior exam, now also extending along the lower uterine segment, with mild hyperenhancement throughout t he endometrial stripe to the level of the cervix. The urinary bladder is decompressed limiting evalua tion. No suspicious bony findings. IMPRESSION: Nonspecific trace fluid within the endometrial cavity, with mild hyperenhancement of the endometrial stripe. Findings are nonspecific and could be related to the phase of menstruation, alth ough other etiologies including infection (such as endometritis) should be considered if there are co ncerning clinical features. No other acute intra-abdominal process.
--- NOTE | 2023-07-11 18:57 | EDPHYS ---
Physician Documentation [facility] Name: Dylan Lopes Age: 27 yrs Sex: Female : 1995 Arrival Date: 07/11/2023 Time: 16:17 Bed 3 Private MD: ED Physician Kenan Singletary HPI: 07/10 19:03 This 27 yrs old Black Female presents to ER via Ambulatory with complaints of Vomiting, rt Weakness. 19:03 Patient presents to the ED with right lower quadrant pain. Patient states that she had rt a miscarriage about a month ago, has had nausea vomiting and some abdominal pain since then. States that the vomiting and pain has worsened today. Denies other acute complaints, symptoms are moderate in severity, no other aggravating relieving factors. Denies vaginal bleeding, vaginal discharge. 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 - Infectious Disease History:: Denies. - Social history:: Smoking status: Patient denies any tobacco usage or history of. - Family history:: not pertinent. ROS: 19:03 Constitutional: Negative for fever, chills, and weight loss, Eyes: Negative for injury, rt pain, redness, and discharge, Cardiovascular: Negative for chest pain, palpitations, and edema, Respiratory: Negative for shortness of breath, cough, wheezing, and pleuritic chest pain, MS/Extremity: Negative for injury and deformity, Skin: Negative for injury, rash, and discoloration, Neuro: Negative for headache, weakness, numbness, tingling, and seizure, 19:03 Abdomen/GI: Positive for abdominal pain, nausea and vomiting, Exam: 19:03 Constitutional: This is a well developed, well nourished patient who is awake, alert, rt and in no acute distress. Head/Face: Normocephalic, atraumatic. Chest/axilla: Normal chest wall appearance and motion. Nontender with no deformity. No lesions are appreciated. Cardiovascular: Regular rate and rhythm with a normal S1 and S2. No gallops, murmurs, or rubs. Normal PMI, no JVD. No pulse deficits. Respiratory: Lungs have equal breath sounds bilaterally, clear to auscultation and percussion. No rales, rhonchi or wheezes noted. No increased work of breathing, no retractions or nasal flaring. Skin: Warm, dry with normal turgor. Normal color with no rashes, no lesions, and no evidence of cellulitis. MS/ Extremity: Pulses equal, no cyanosis. Neurovascular intact. Full, normal range of motion. Neuro: Awake and alert, GCS 15, oriented to person, place, time, and situation. Cranial nerves II-XII grossly intact. Motor strength 5/5 in all extremities. Sensory grossly intact. Cerebellar exam normal. Normal gait. 19:03 Abdomen/GI: Mild tenderness to the right lower quadrant without rebound, guarding, distention, Vital Signs: 16:27 BP 126 / 95; Pulse 74; Resp 18; Temp 97; Pulse Ox 100% on R/A; Weight 69.85 kg; Height iw 5 ft. 8 in. ; Pain 10/10; 17:21 BP 112 / 64; Pulse 50; Resp 18; Pulse Ox 100% on R/A; ph 18:45 BP 118 / 72; Pulse 45; Resp 18; Pulse Ox 98% on R/A; ph 19:04 BP 98 / 73; Pulse 46; Resp 18; Temp 97; Pulse Ox 99% on R/A; Pain 0/10; bm8 16:27 Body Mass Index 23.42 (69.85 kg, 172.72 cm) iw 16:27 Pain Scale: Adult iw 19:04 Pain Scale: Adult bm8 MDM: 16:48 Patient medically screened. rt 19:03 Differential diagnosis: Appendicitis, ovarian cyst, retained POC. Data reviewed: vital rt signs, nurses notes, lab test result(s), radiologic studies. I considered the following discharge prescriptions or medication management in the emergency department Medications were administered in the Emergency Department. See MAR. Independent interpretation of the following test(s) in the Emergency Department CT Scan: My interpretation is No bowel obstruction syndrome interpretation of CT scan images. Test considered but Not performed: Ultrasound Recommended patient obtain ultrasound to rule out retained POC, declines this at this time, wishes to follow-up with MACHINE WELDER, return precautions were discussed.. Counseling: I had a detailed discussion with the patient and/or guardian regarding the historical points, exam findings, and any diagnostic results supporting the discharge/admit diagnosis, lab results, radiology results, the need for outpatient follow up. Response to treatment: the patient's symptoms have markedly improved after treatment. 07/10 16:55 Order name: CBC with Diff; Complete Time: 17:49 rt 07/10 16:55 Order name: CMP; Complete Time: 17:49 rt 07/10 16:55 Order name: Lipase; Complete Time: 17:49 rt 07/10 16:55 Order name: Test, Urine; Complete Time: 17:49 rt 07/10 16:55 Order name: Urinalysis w/ reflexes; Complete Time: 17:49 rt 07/10 16:55 Order name: CT Abd/Pelvis - IV Contrast Only; Complete Time: 18:52 rt 07/10 16:55 Order name: IV Saline Lock; Complete Time: 17:12 rt 07/10 16:55 Order name: Labs collected and sent; Complete Time: 17:12 rt Administered Medications: 17:11 Drug: NS 0.9% IV 1000 ml IV at 1 bolus Per protocol; 1000 mL bolus Route: IV; Rate: 1 ph bolus; Site: left antecubital; 19:06 Follow up: Response: No adverse reaction; IV Status: Completed infusion bm8 17:11 Drug: TORadol - Ketorolac IVP 15 mg IVP once Route: IVP; Site: left antecubital; ph 19:07 Follow up: Response: No adverse reaction bm8 17:11 Drug: Ondansetron IVP 4 mg IVP once; over 2 minutes Route: IVP; Site: left antecubital; ph 19:07 Follow up: Response: No adverse reaction bm8 Disposition Summary: 07/11/23 18:56 Discharge Ordered Notes: Location: Home rt Problem: new rt Symptoms: have improved rt Condition: Stable rt Diagnosis - Abdominal pain, unspecified rt Followup: rt - With: Private Physician - When: 2 - 3 days - Reason: Discharge Instructions: - Discharge Summary Sheet rt - Abdominal Pain, Adult rt Forms: - Medication Reconciliation Form rt - Thank You Letter rt - Antibiotic Education rt - Prescription Opioid Use rt - Patient Portal Instructions rt - Leadership Thank You Letter rt Prescriptions: - ondansetron 4 mg Oral Tablet,disintegrating - take 1 tablet ORAL route every 6 hours as needed for nausea; 18 tablet; rt Refills: 0, Product Selection Permitted Signatures: Dispatcher [employer] Ana Pretty, OSCAR RN iw Gali Mcmahan RN RN ph Kenan Singletary MD MD rt Ruben Jones RN bm8 Corrections: (The following items were deleted from the chart) 16:56 16:56 CBC+H.LAB.BRZ ordered. EDMS EDMS 16:56 16:56 COMPREHENSIVE METABOLIC PANEL+C.LAB.BRZ ordered. EDMS EDMS 16:56 16:56 LIPASE+C.LAB.BRZ ordered. EDMS EDMS 16:56 16:56 Test, Urine+UC.LAB.BRZ ordered. EDMS EDMS 16:56 16:56 Urinalysis+U.LAB.BRZ ordered. EDMS EDMS 16:56 16:56 Abdomen Pelvis W Con+CT.RAD.BRZ ordered. EDMS EDMS
--- NOTE | 2023-07-11 18:57 | ER ---
Nurse's Notes [facility] Name: Dylan Lopes Age: 27 yrs Sex: Female : 1995 Arrival Date: 07/11/2023 Time: 16:17 Bed 3 Private MD: Diagnosis: Abdominal pain, unspecified Presentation: 07/10 16:27 Chief complaint: Patient states: I had a miscarriage about a month ago , I have not iw felt right since then, I've been vomiting, losing weight, today I have thrown up 30 times, I feel pain in my back and my stomach. Coronavirus screen: Client presents with at least one sign or symptom that may indicate coronavirus-19. Ebola Screen: Patient negative for fever greater than or equal to 101.5 degrees Fahrenheit, and additional compatible Ebola Virus Disease symptoms Patient denies exposure to infectious person. Patient denies travel to an Ebola-affected area in the 21 days before illness onset. No symptoms or risks identified at this time. Initial Sepsis Screen: Does the patient meet any 2 criteria? No. Patient's initial sepsis screen is negative. Does the patient have a suspected source of infection? No. Patient's initial sepsis screen is negative. Risk Assessment: Do you want to hurt yourself or someone else? Patient reports no desire to harm self or others. Onset of symptoms was July 11, 2023. 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 - Infectious Disease History:: Denies. - Social history:: Smoking status: Patient denies any tobacco usage or history of. - Family history:: not pertinent. Screenin:37 [facility] ED Fall Risk Assessment (Adult) History of falling in the last 3 months, ph including since admission No falls in past 3 months (0 pts) Confusion or Disorientation No (0 pts) Intoxicated or Sedated No (0 pts) Impaired Gait No (0 pts) Mobility Assist Device Used No (0 pt) Altered Elimination No (0 pt) Score/Fall Risk Level 0 - 2 = Low Risk Oriented to surroundings, Maintained a safe environment, Hourly rounding (assess needs \T\ fall precautionary measures) done. Abuse screen: Denies threats or abuse. Denies injuries from another. Nutritional screening: No deficits noted. Tuberculosis screening: No symptoms or risk factors identified. Assessment: 17:16 General: Appears in no apparent distress. comfortable, well groomed, Behavior is calm, ph cooperative, appropriate for age. Pain: Complains of pain in right lower quadrant. Neuro: Level of Consciousness is awake, alert, obeys commands, Oriented to person, place, time, situation. Respiratory: Airway is patent Respiratory effort is even, unlabored, Respiratory pattern is regular, symmetrical. GI: Abdomen is non-distended, Reports lower abdominal pain, nausea, vomiting. : Reports pain in right lower quadrant(s). Derm: Skin is pink, warm \T\ dry. 18:45 Reassessment: Patient appears in no apparent distress at this time. Patient and/or ph family updated on plan of care and expected duration. Pain level reassessed. Patient is alert, oriented x 3, equal unlabored respirations, skin warm/dry/pink. 19:04 Reassessment: Patient appears in no apparent distress at this time. Patient and/or bm8 family updated on plan of care and expected duration. Pain level reassessed. Patient is alert, oriented x 3, equal unlabored respirations, skin warm/dry/pink. Patient denies pain at this time. Patient states feeling better. Patient states symptoms have improved. Vital Signs: 16:27 BP 126 / 95; Pulse 74; Resp 18; Temp 97; Pulse Ox 100% on R/A; Weight 69.85 kg; Height iw 5 ft. 8 in. ; Pain 10/10; 17:21 BP 112 / 64; Pulse 50; Resp 18; Pulse Ox 100% on R/A; ph 18:45 BP 118 / 72; Pulse 45; Resp 18; Pulse Ox 98% on R/A; ph 19:04 BP 98 / 73; Pulse 46; Resp 18; Temp 97; Pulse Ox 99% on R/A; Pain 0/10; bm8 16:27 Body Mass Index 23.42 (69.85 kg, 172.72 cm) iw 16:27 Pain Scale: Adult iw 19:04 Pain Scale: Adult bm8 ED Course: 16:21 Patient arrived in ED. mr 16:29 Triage completed. iw 16:29 Arm band placed on. iw 16:35 Louis Willis, RN is Primary Nurse. bp 16:36 Gali Mcmahan, RN is Primary Nurse. ph 16:37 Patient has correct armband on for positive identification. Bed in low position. Call ph light in reach. Pulse ox on. NIBP on. Door closed. Noise minimized. Warm blanket given. 16:39 Kenan Singletary MD is Attending Physician. rt 17:12 CBC with Diff Sent. ph 17:12 CMP Sent. ph 17:12 Lipase Sent. ph 17:12 Test, Urine Sent. ph 17:12 Urinalysis w/ reflexes Sent. ph 17:22 No provider procedures requiring assistance completed. ph 18:05 CT Abd/Pelvis - IV Contrast Only In Process Unspecified. EDMS 18:50 Inserted saline lock: 22 gauge in left antecubital area, using aseptic technique. Blood bm8 collected. 18:50 IV discontinued, intact, bleeding controlled, No redness/swelling at site. Pressure bm8 dressing applied. 19:04 Provided Education on: POST ER CARE. bm8 Administered Medications: 17:11 Drug: NS 0.9% IV 1000 ml IV at 1 bolus Per protocol; 1000 mL bolus Route: IV; Rate: 1 ph bolus; Site: left antecubital; 19:06 Follow up: Response: No adverse reaction; IV Status: Completed infusion bm8 17:11 Drug: TORadol - Ketorolac IVP 15 mg IVP once Route: IVP; Site: left antecubital; ph 19:07 Follow up: Response: No adverse reaction bm8 17:11 Drug: Ondansetron IVP 4 mg IVP once; over 2 minutes Route: IVP; Site: left antecubital; ph 19:07 Follow up: Response: No adverse reaction bm8 Medication: 16:37 VIS not applicable for this client. ph Outcome: 18:50 Discharged to home ambulatory, bm8 18:50 Condition: stable 18:50 Discharge instructions given to patient, Instructed on discharge instructions, follow up and referral plans. medication usage, safety practices, Demonstrated understanding of instructions, follow-up care, medications, Prescriptions given X 1, 18:56 Discharge ordered by . rt 19:06 Patient left the ED. bm8 Signatures: Dispatcher [employer] EDMS Joan Linares, Reg Reg mr Ana Beckwith, RN RN iw Gali Mcmahan RN RN ph Louis Willis, OSCAR RN Kenan Wang MD MD rt Ruben Jones RN RN bm8 Corrections: (The following items were deleted from the chart) 16:29 16:27 Chief complaint: Patient states: I had a miscarriage about a month ago , I have iw not felt right since then, I've been vomiting, losing weight, today I have thrown up 30 times, I feel pain in my back iw
[2023-07-11 19:30] VITALS: BP 98/73; TEMP 97; O2SAT 99
== END 2023-07-11 19:06 | disposition home or self-care (01) ==
LOC: ER 16:17
DX: R10.31 Right lower quadrant pain (principal); R11.2 Nausea with vomiting, unspecified
CPT/HCPCS: 96361; 85025; 81001; 36415; 81025; 83690; 80053; 74177; 96375; 96374; 99284; Q9967; J2405; J7030